=== PATIENT | female | born 1950 | race Caucasian/White ===

== ENCOUNTER 2023-10-07 16:45 | Emergency (ER) | payer MEDICARE, OTHER, SELFPAY ==
[2023-10-07 17:19] VITALS: BP 121/72; PULSE 87; RESP 18; TEMP 36.7; O2SAT 97; BMI 33.8
--- NOTE | 2023-10-07 17:23 | ED.GENADULT ---
HPI - General Adult General Stated complaint: dx dementia, recent agitation Related Data Allergies Allergy/AdvReac Type Severity Reaction Status Date / Time Sulfa (Sulfonamide Allergy Unknown Verified 10/07/23 17:27 Antibiotics) Course Course Course Narrative: RME, this is a rapid medical exam performed by Cheo Fritz please refer to primary provider for complete H&P- 73-year-old female presents for evaluation of increased agitation and general malaise. Family is concerned the patient may have a UTI. The patient's and son are requesting a [facility] psych consult as the patient has been ?agitated all the time for a while now but it has been worse over the last 4 days. The patient fell yesterday because the primary doctor increased her Xanax. Plan for basic labs, urinalysis
--- NOTE | 2023-10-07 17:33 | ECG_ITS ---
Test Reason : QT CHECK Blood Pressure : / mmHG Vent. Rate : 083 BPM Atrial Rate : 083 BPM P-R Int : 196 ms QRS Dur : 092 ms QT Int : 384 ms P-R-T Axes : 071 -15 010 degrees QTc Int : 451 ms Normal sinus rhythm Septal infarct , age undetermined Abnormal ECG No previous ECGs available Referred By: All Fritz Electronically Signed By:LITTLE SALAMANCA
[2023-10-07 17:42] LABS: MANUAL DIFF FLAG NO
[2023-10-07 17:49] LABS: Basophils Percent Auto 0.5 % (0-2); Eosinophils Absolute Auto 0.2 X10*3/uL (0.0-0.4); Eosinophils Percent Auto 2.9 % (0-4); Hematocrit 40.6 % (37.0-47.0); Hemoglobin 13.8 g/dl (12.0-16.0); Imm Gran Abs Auto 0.02 X10*3/uL (0.00-0.03); Imm Gran Pct Auto 0.3 % (0.0-0.4); Lymphocytes Absolute Auto 1.2 X10*3/uL (1.2-4.9); Lymphocytes Percent Auto 20.3 % (20-40); Mean Corpuscular Hemoglobin 31.7 pg (27.0-33.0); Mean Corpuscular Volume 93.3 fL (80.0-98.0); Monocytes Absolute Auto 0.6 X10*3/uL (0.1-1.2); Monocytes Percent Auto 9.3 % (2-11); Neutrophils Absolute Auto 3.9 x10*3/uL (2.0-8.3); Neutrophils Percent Auto 66.7 % (45-73); Platelet Count 258 X10*3/uL (160-400); Red Blood Count 4.35 X10*6/uL (4.20-5.50); Red Cell Distribution Width 13.2 % (11.0-16.0); White Blood Count 5.9 X10*3/uL (4.8-10.8)
[2023-10-07 17:57] LABS: Amphetamine Screen Urine Not Detected (Not Detect); Barbiturates, Urine Not Detected (Not Detect); Benzodiazepines Screen Urine POSITIVE (Not Detect); Buprenorphine Scr Not Detected (Not Detect); Cannabinoid Screen Urine POSITIVE (Not Detect); Cocaine Screen Urine Not Detected (Not Detect); Fentanyl, urine Not Detected (Not Detect); Methadone Screen, Urine Not Detected (Not Detect); Opiate Screen Urine Not Detected (Not Detect); Oxycodone Screen Urine Not Detected (Not Detect); Phencyclidine Screen Urine Not Detected (Not Detect)
[2023-10-07 18:01] LABS: Alanine Aminotransferase 17 U/L (0-31); Albumin Level 4.4 g/dL (3.5-5.0); Alkaline Phosphatase 129 U/L (39-117); Anion Gap 13 (12-20); Aspartate Amino Transferase 23 U/L (5-31); Bilirubin Total 0.4 mg/dL (0.0-1.0); Blood Urea Nitrogen 24 mg/dL (9-16); Carbon Dioxide 27 mmol/L (22-29); Chloride 102 mmol/L (96-108); Creatinine Clr Calc Pharmacy 58.4; Estimated Glomerular Filt Rate > 60; Glucose Random 133 mg/dL (60-115); Lipase 11 U/L (8-78); Potassium 3.7 mmol/L (3.3-5.1); Sodium 138 mmol/L (135-145); Total Protein 7.7 g/dL (6.5-8.0)
[2023-10-07 18:03] LABS: COVID-19 Test Negative (Negative); IDNOW Serial# 08D9AD1C
[2023-10-07 18:08] LABS: Ethanol < 10 mg/dL
[2023-10-07 18:21] LABS: TSH reflex Free T4 1.49 uIU/mL (0.32-4.0)
--- NOTE | 2023-10-07 18:22 | MHC.EDTECH ---
late entry: pt changed over w/ security and changed into [facility] gown and hospital pants, belongings removed and placed in locker #2, daughter signed belongings list for pt. pt was triaged where blood work, urine, EKG and VS were taken prior to change management director. pt is now resting in her room, with daughter present
[2023-10-07 18:27] LABS: Appearance Urine Clear; Color Urine Yellow; Glucose Urine UA Negative (Negative); Leukocyte Esterase Urine Trace (Negative); Nitrite Urine Negative (Negative); UMIC TRIGGER UACC YES; Urine Blood Negative (Negative); Urine Ketones Negative (Negative); Urine Protein Negative (Neg-Trace)
[2023-10-07 18:34] LABS: Bacteria Urine None Seen (None Seen); Hyaline Casts Urine 0-2 /LPF (0-2); RBC Urine 0-2 /HPF (0-2); Squamous Epithelial Cell Urine 0-2 /HPF (0-2); WBC Urine 0-5 /HPF (0-5)
--- NOTE | 2023-10-07 19:14 | ED.PSYCH ---
HPI - Psych General Chief Complaint: General Medical Stated Complaint: dx dementia, recent agitation Time Seen by Provider: 10/07/23 17:54 Source: family Limitations: other (dementia) History of Present Illness ED Provider: Lilliana Drummond PA-C HPI Narrative: 73-year-old female with history of dementia presents with aggression. Per patient's daughter, the patient has become increasingly aggressive, exhibiting violent behaviors at home, over the past several weeks. They have followed up with their provider who manages her dementia, they have prescribed a new antipsychotic medication for her to try. The daughter indicates that they have yet to start this medication as they wanted to be sure there were no underlying medical causes for her behavioral issues. Related Data Home Medications ?Medication ?Instructions ?Recorded ?Confirmed alprazolam 0.5 mg tablet 0.5 mg PO BID PRN anxiety 10/07/23 10/07/23 lisinopril 10 1 tab PO DAILY 10/07/23 10/07/23 mg-hydrochlorothiazide 12.5 mg tablet metformin 500 mg tablet,extended 500 mg PO BID 10/07/23 10/07/23 release 24 hr mirtazapine 30 mg tablet 30 mg PO DAILY 10/07/23 10/07/23 simvastatin 40 mg tablet 40 mg PO QPM 10/07/23 10/07/23 venlafaxine 75 mg capsule,extended 75 mg PO BID 10/07/23 10/07/23 release 24 hr Allergies Allergy/AdvReac Type Severity Reaction Status Date / Time Sulfa (Sulfonamide Allergy Unknown Verified 10/07/23 17:27 Antibiotics) Review of Systems Review of Systems: Unable to obtain due to dementia Yes all other systems are reviewed and are negative [facility] Past Medical History Attestation statement: The following information was validated with the patient. Social History Social History Advance Directives: No Advance Directives Information Provided: No Do you have a plan to hurt others: No Plan Physical Exam Vital Signs: Vital Signs: Last Vital Signs Temp 98.1 F 10/07/23 17:19 Pulse 87 10/07/23 17:19 Resp 18 10/07/23 17:19 BP 121/72 10/07/23 17:19 Pulse Ox 97 10/07/23 17:19 O2 Del Method Room Air 10/07/23 17:19 BMI result Body Mass Index 33.8 Const: Other: Awake Orientation/consciousness: oriented to person Resp: Other: Nonlabored respiration Cardio: Other: Normal peripheral perfusion Skin: Other: Warm dry no rash Neuro: General: oriented to person, no focal motor deficits and CN's II-XI intact bilaterally Psych: Other: Cooperative here in the emergency department, we will randomly start to cry Medical Decision Making Medical Decision Making MDM Narrative: 73-year-old female with history of dementia presents with aggression. Per patient's daughter, the patient has become increasingly aggressive, exhibiting violent behaviors at home, over the past several weeks. They have followed up with their provider who manages her dementia, they have prescribed a new antipsychotic medication for her to try. The daughter indicates that they have yet to start this medication as they wanted to be sure there were no underlying medical causes for her behavioral issues. Problem: Dementia History: Per patient's daughter I have considered the following differential diagnoses: Worsening dementia, UTI, infection, Plan: Screening labs including urinalysis obtained, there are no abnormalities. The daughter is aware that her U tox screened positive for cannabinoids, they give her CBD oil which seems to help at times. The daughter is happy to take her home given her labs were clean, they will start the new medication today. I have independently reviewed the following tests: Labs: No leukocytosis, not anemic, no electrolyte abnormality, no urinary tract infection, U tox positive for benzos which she is prescribed, and for cannabinoids, serum ethanol negative Differential Diagnosis Differential Diagnoses: The differential diagnosis associated with the presentation includes Lab Data 10/07/23 17:36 10/07/23 17:36 Labs: Lab Results 10/07/23 Range/Units 17:36 WBC 5.9 (4.8-10.8) X10*3/uL RBC 4.35 (4.20-5.50) X10*6/uL Hgb 13.8 (12.0-16.0) g/dl Hct 40.6 (37.0-47.0) % MCV 93.3 (80.0-98.0) fL MCH 31.7 (27.0-33.0) pg MCHC 34.0 (31.0-35.0) g/dl RDW 13.2 (11.0-16.0) % Plt Count 258 (160-400) X10*3/uL MPV 10.0 (9.4-12.3) fL Immature Gran % (Auto) 0.3 (0.0-0.4) % Neut % (Auto) 66.7 (45-73) % Lymph % (Auto) 20.3 (20-40) % [place] % (Auto) 9.3 (2-11) % Eos % (Auto) 2.9 (0-4) % Baso % (Auto) 0.5 (0-2) % Lymph # (Auto) 1.2 (1.2-4.9) X10*3/uL [place] # (Auto) 0.6 (0.1-1.2) X10*3/uL Eos # (Auto) 0.2 (0.0-0.4) X10*3/uL Baso # (Auto) 0.0 (0.0-0.2) X10*3/uL Abs Immat Gran (auto) 0.02 (0.00-0.03) X10*3/uL Absolute Neuts (auto) 3.9 (2.0-8.3) x10*3/uL Absolute Nucleated RBC 0.000 (0.0-0.012) X10*3/uL Nucleated RBC % (auto) 0.0 (0.0-0.2) /100WBC Sodium 138 (135-145) mmol/L Potassium 3.7 (3.3-5.1) mmol/L Chloride 102 (96-108) mmol/L Carbon Dioxide 27 (22-29) mmol/L Anion Gap 13 (12-20) BUN 24 H (9-16) mg/dL Creatinine 0.90 (0.5-1.4) mg/dL Estim Creat Clear Calc 58.4 Estimated GFR > 60 Random Glucose 133 H (60-115) mg/dL Calcium 10.0 (8.4-10.2) mg/dL Total Bilirubin 0.4 (0.0-1.0) mg/dL AST 23 (5-31) U/L ALT 17 (0-31) U/L Alkaline Phosphatase 129 H (39-117) U/L Total Protein 7.7 (6.5-8.0) g/dL Albumin 4.4 (3.5-5.0) g/dL Lipase 11 (8-78) U/L TSH 1.49 (0.32-4.0) uIU/mL Urine Color Yellow Urine Appearance Clear Urine pH 6.0 (5.0-9.0) Ur Specific [place] 1.020 (1.005-1.025) Urine Protein Negative (Neg-Trace) mg/dL Urine Glucose (UA) Negative (Negative) mg/dL Urine Ketones Negative (Negative) mg/dL Urine Blood Negative (Negative) Urine Nitrite Negative (Negative) Ur Leukocyte Esterase Trace H (Negative) Urine RBC 0-2 (0-2) /HPF Urine WBC 0-5 (0-5) /HPF Ur Squamous Epith Cells 0-2 (0-2) /HPF Urine Bacteria None Seen (None Seen) Hyaline Casts 0-2 (0-2) /LPF Urine Opiates Screen Not Detected (Not Detect) Ur Buprenorphine Scrn Not Detected (Not Detect) ng/mL Ur Oxycodone Screen Not Detected (Not Detect) ng/mL Urine Methadone Screen Not Detected (Not Detect) ng/mL Urine Fentanyl Screen Not Detected (Not Detect) Ur Barbiturates Screen Not Detected (Not Detect) Ur Phencyclidine Scrn Not Detected (Not Detect) Ur Amphetamines Screen Not Detected (Not Detect) U Benzodiazepines Scrn POSITIVE H (Not Detect) Urine Cocaine Screen Not Detected (Not Detect) U Marijuana (THC) Screen POSITIVE H (Not Detect) Ethyl Alcohol < 10 mg/dL COVID-19 ([facility]ERENA) Negative (Negative) COVID-19 Clin Com See Note Discharge Plan Discharge Clinical Impression: Dementia Qualifiers: Dementia type: unspecified type Dementia severity: unspecified severity Dementia behavioral or psychological symptom: with agitation Qualified Code(s): F03.911 - Unspecified dementia, unspecified severity, with agitation Patient Disposition: Home, Self-Care Instructions: Dementia (ED) Additional Instructions: All of the screening labs were normal, the urinalysis was negative for urinary tract infection. Continue to follow up with your care providers. Prescriptions: No Action venlafaxine 75 mg capsule,extended release 24hr 75 mg PO BID simvastatin 40 mg tablet 40 mg PO QPM alprazolam 0.5 mg tablet 0.5 mg PO BID PRN (Reason: anxiety) mirtazapine 30 mg tablet 30 mg PO DAILY lisinopril-hydrochlorothiazide 10-12.5 mg tablet 1 tab PO DAILY metformin 500 mg tablet extended release 24 hr 500 mg PO BID Print Language: Citizen Of [place]
[2023-10-07 19:46] VITALS: BP 117/45; PULSE 78; RESP 17; TEMP 36.6; O2SAT 99
== END 2023-10-07 20:00 | disposition home or self-care (01) ==
PROVIDERS: Physician Assistant; Emergency Provider Emergency Medicine; PCP Family Medicine
DX: F03.911 Unspecified dementia, unspecified severity, with agitation (principal); R53.81 Other malaise; R45.1 Restlessness and agitation; Z79.899 Other long term (current) drug therapy; Z11.52 Encounter for screening for COVID-19
CPT/HCPCS: 36415; 80053; 80307; 81001; 83690; 84443; 85025; 87635; 93005; 99283

== ENCOUNTER 2023-11-21 13:47 | Inpatient (IN) | payer MEDICARE, OTHER, SELFPAY ==
[2023-11-21 13:57] VITALS: BP 110/70; BP 119/59; PULSE 100; PULSE 93; RESP 16; TEMP 36.7; O2SAT 100; O2SAT 97; BMI 24.3
--- NOTE | 2023-11-21 14:03 | ED_ITS ---
HPI - General Adult General Chief complaint: Failure to Thrive Stated complaint: Sec 12 Time Seen by Provider: 11/21/23 14:03 Source: patient, family (patient's daughter, son, and ) and EMS Mode of arrival: EMS Limitations: physical limitation (patient has a history of dementia) History of Present Illness ED Provider: Chanelle Pina PA-C HPI narrative: Patient is a 73 year old assigned female at with a history of DM and dementia presenting to the emergency department today with increased agitation. Patient's family states that the patient has continued to become increasingly agitated despite medications given. Patient's family states that the patient is going days without eating or drinking, having sobbing fits, and increased outbursts. Patient's family states that they would like the patient to be admitted for additional psychiatric care. Related Data Home Medications ?Medication ?Instructions ?Recorded ?Confirmed alprazolam 0.5 mg tablet 0.5 mg PO BID PRN anxiety 10/07/23 11/21/23 lisinopril 10 1 tab PO DAILY 10/07/23 11/21/23 mg-hydrochlorothiazide 12.5 mg tablet metformin 500 mg tablet,extended 500 mg PO BID 10/07/23 11/21/23 release 24 hr mirtazapine 30 mg tablet 30 mg PO DAILY 10/07/23 11/21/23 simvastatin 40 mg tablet 40 mg PO QPM 10/07/23 11/21/23 venlafaxine 75 mg capsule,extended 75 mg PO BID 10/07/23 11/21/23 release 24 hr clonazepam 0.5 mg tablet 0.5 mg PO BID PRN agitation 11/21/23 11/21/23 nystatin 100,000 unit/gram topical topical BID 11/21/23 powder (Nystop) quetiapine 25 mg tablet 12.5 mg PO BID PRN insomnia 11/21/23 11/21/23 quetiapine 50 mg tablet,extended 50 mg PO BID 11/21/23 11/21/23 release 24 hr Allergies Allergy/AdvReac Type Severity Reaction Status Date / Time Sulfa (Sulfonamide Allergy Unknown Verified 11/21/23 13:58 Antibiotics) Review of Systems 2 Review of Systems: Yes Other (patient has dementia and is unable to provide ROS) PMFSH Past Medical History Attestation statement: The following information was validated with the patient. (all information validated with the patient's daughter, son, and ) Source: old records reviewed, obtained from family (patient's daughter, son, and provided all history and ROS) and nursing notes reviewed Social History Social History Smoked in Last 30 Days: No Use of substances other than those prescribed or required for medical reasons: No Advance Directives: No Advance Directives Information Provided: No Do you have a plan to hurt others: No Plan Physical Exam ED Vital Signs: Vital Signs - 24 hr 11/21/23 13:57 11/21/23 14:06 11/21/23 16:18 Temperature 98.1 F 98.1 F 98.7 F Pulse Rate 93 93 89 Respiratory Rate 16 16 16 Blood Pressure 119/59 L 119/59 L 142/61 H Pulse Oximetry 100 100 97 Oxygen Delivery Method Room Air Room Air Room Air 11/21/23 17:42 11/21/23 18:12 Temperature 98.2 F Pulse Rate 92 Respiratory Rate 16 Blood Pressure 130/68 Pulse Oximetry 95 98 Oxygen Delivery Method Room Air Room Air BMI result Body Mass Index 24.3 Const General: cooperative, no acute distress, alert and awake Nutritional Appearance: well nourished Limitations: no limitations HENMT Head: Yes normal to inspection and Yes atraumatic Ears: hearing grossly normal bilaterally and external ears normal General nose exam: Normal external nose present, no nasal discharge noted and no epistaxis Face and sinus: Yes normal facial exam, No abrasion and No laceration Mouth: Normal oral and palatal mucosa present, no drooling and no muffled voice Eyes General: appearance normal, both eyes and all related structures Periorbital: periorbital findings normal Eyelids: Yes eyelids normal Conjunctivae: conjunctivae normal Pupils: Equal, round and reactive pupils present EOM: EOMs intact bilaterally Neck Neck: Yes normal visual inspection, Yes full ROM and Yes no lymphadenopathy Chest Chest palpation & inspection: normal inspection of the chest Resp Effort & Inspection: normal respiratory effort and able to speak in complete sentences GI Inspection: Yes normal to inspection Neuro Other: patient is confused per her baseline General: moves all extremities Cranial nerves: Yes Equal, round and reactive pupils present Extrem General: Yes normal to inspection, Yes full ROM and Yes capillary refill normal Psych Appearance: grossly normal Affect: Labile affect present Attitude: Guarded attititude/behavior present Medications Administered Generic Name Dose Route Start Last Admin Trade Name Freq PRN Reason Stop Dose Admin Alprazolam 0.5 mg 11/21/23 15:55 11/21/23 16:18 Alprazolam 0.5 Mg Tablet PO 0.5 mg BID PRN Administration anxiety Atorvastatin Calcium 20 mg 11/21/23 21:00 11/21/23 20:05 Atorvastatin Calcium 20 Mg Tablet PO 20 mg BEDTIME SARAH Administration Clonazepam 0.5 mg 11/21/23 15:55 11/21/23 20:06 Clonazepam 0.5 Mg Tablet PO 0.5 mg BID PRN Administration agitation Metformin HCl 500 mg 11/21/23 21:00 11/21/23 20:06 Metformin Hcl Er 500 Mg Tab.Er.24h PO 500 mg BID SARAH Administration Quetiapine Fumarate 12.5 mg 11/21/23 15:55 11/21/23 16:18 Quetiapine Fumarate 25 Mg Tablet PO 12.5 mg BID PRN Administration insomnia Quetiapine Fumarate 50 mg 11/21/23 21:00 11/21/23 20:05 Quetiapine Fumarate 50 Mg Tablet PO 50 mg BID SARAH Administration Venlafaxine HCl 75 mg 11/21/23 21:00 11/21/23 20:05 Venlafaxine Hcl Er 75 Mg Cap.Er.24h PO 75 mg BID SARAH Administration Discontinued Medications Generic Name Dose Route Start Last Admin Trade Name Jose Alfredoq PRN Reason Stop Dose Admin Sodium Chloride 1,000 mls @ 999 mls/hr 11/21/23 14:15 11/21/23 15:31 Ns IV 11/21/23 15:15 Infused .Q1H1M SARAH Infusion Olanzapine 5 mg 11/21/23 19:39 11/21/23 19:43 Olanzapine 5 Mg Tablet PO 11/21/23 19:40 5 mg ONCE ONE Administration Medical Decision Making Medical Decision Making MDM Narrative: Patient is a 73 year old assigned female at with a history of DM and dementia presenting to the emergency department today with increased agitation and the need for additional psychiatric care. Patient's physical exam was as noted in the physical exam portion of this note. Patient's blood work was unremarkable. Patient's urine showed no acute process. I explained my physical exam findings as well as all test results to the patient and the patient's family. I answered all questions asked by the patient's family. Patient was evaluated by the CARE team who recommended a psychiatric evaluation. Patient remains in the department pending a psychiatric evaluation. Differential Diagnosis Differential Diagnoses: The differential diagnosis associated with the presentation includes Dementia Increased aggression Admission/Observation Consideration of admission/observation: Escalation of care including admission/observation considered Patient's disposition will be determined after psychiatry consult. Consult Healthcare Provider Management of the patient was discussed with: Behavioral Health Provider (spoke to the CARE team as noted in the MDM Rationale portion of this note) Lab Data [facility] Lab Attestation statement: I reviewed the patient's lab results. My interpretation of these results are in the MDM Rationale portion of this note. 11/21/23 14:24 11/21/23 14:24 Labs: Lab Results 11/21/23 11/21/23 Range/Units 14:24 15:40 WBC 6.4 (4.8-10.8) X10*3/uL RBC 4.14 L (4.20-5.50) X10*6/uL Hgb 13.0 (12.0-16.0) g/dl Hct 37.5 (37.0-47.0) % MCV 90.6 (80.0-98.0) fL MCH 31.4 (27.0-33.0) pg MCHC 34.7 (31.0-35.0) g/dl RDW 13.2 (11.0-16.0) % Plt Count 212 (160-400) X10*3/uL MPV 10.2 (9.4-12.3) fL Immature Gran % (Auto) 0.3 (0.0-0.4) % Neut % (Auto) 75.2 H (45-73) % Lymph % (Auto) 14.8 L (20-40) % [place] % (Auto) 7.5 (2-11) % Eos % (Auto) 1.6 (0-4) % Baso % (Auto) 0.6 (0-2) % Lymph # (Auto) 1.0 L (1.2-4.9) X10*3/uL [place] # (Auto) 0.5 (0.1-1.2) X10*3/uL Eos # (Auto) 0.1 (0.0-0.4) X10*3/uL Baso # (Auto) 0.0 (0.0-0.2) X10*3/uL Abs Immat Gran (auto) 0.02 (0.00-0.03) X10*3/uL Absolute Neuts (auto) 4.8 (2.0-8.3) x10*3/uL Absolute Nucleated RBC 0.000 (0.0-0.012) X10*3/uL Nucleated RBC % (auto) 0.0 (0.0-0.2) /100WBC Sodium 138 (135-145) mmol/L Potassium 3.5 (3.3-5.1) mmol/L Chloride 100 (96-108) mmol/L Carbon Dioxide 26 (22-29) mmol/L Anion Gap 16 (12-20) BUN 31 H (9-16) mg/dL Creatinine 1.16 (0.5-1.4) mg/dL Estim Creat Clear Calc 42.2 Estimated GFR 46 Random Glucose 103 (60-115) mg/dL Calcium 10.0 (8.4-10.2) mg/dL Total Bilirubin 0.6 (0.0-1.0) mg/dL AST 31 (5-31) U/L ALT 30 (0-31) U/L Alkaline Phosphatase 81 (39-117) U/L Total Protein 7.1 (6.5-8.0) g/dL Albumin 4.3 (3.5-5.0) g/dL Urine Color Yellow Urine Appearance Clear Urine pH 5.5 (5.0-9.0) Ur Specific [place] 1.010 (1.005-1.025) Urine Protein Negative (Neg-Trace) mg/dL Urine Glucose (UA) Negative (Negative) mg/dL Urine Ketones Negative (Negative) mg/dL Urine Blood Negative (Negative) Urine Nitrite Negative (Negative) Ur Leukocyte Esterase Moderate (2+) H (Negative) Urine RBC 0-2 (0-2) /HPF Urine WBC 6-10 H (0-5) /HPF Ur Squamous Epith Cells 0-2 (0-2) /HPF Urine Bacteria None Seen (None Seen) Hyaline Casts 3-5 (0-2) /LPF Urine Opiates Screen Not Detected (Not Detect) Ur Buprenorphine Scrn Not Detected (Not Detect) ng/mL Ur Oxycodone Screen Not Detected (Not Detect) ng/mL Urine Methadone Screen Not Detected (Not Detect) ng/mL Urine Fentanyl Screen Not Detected (Not Detect) Ur Barbiturates Screen Not Detected (Not Detect) Ur Phencyclidine Scrn Not Detected (Not Detect) Ur Amphetamines Screen Not Detected (Not Detect) U Benzodiazepines Scrn Not Detected (Not Detect) Urine Cocaine Screen Not Detected (Not Detect) U Marijuana (THC) Screen Not Detected (Not Detect) Independent Historian Clinical information obtained from an independent historian. History obtained from or confirmed by: Spouse (patient's provided additional history), EMS (EMS provided additional history and confirmed the history provided by the patient's family) and Other (patient's daughter and son provided additional history) Chronic Conditions Patient?s care impacted by: Diabetes Critical Care Time Critical Care Time Critical Care Time: Yes Total Critical Care Time: 41 Attestation: I spent 41 minutes of Critical Care Time with this patient. This does not include time spent on separately reported billable procedures. Discharge Plan Discharge Clinical Impression: Dementia, Aggression Patient Disposition: Still a Patient Prescriptions: No Action venlafaxine 75 mg capsule,extended release 24hr 75 mg PO BID simvastatin 40 mg tablet 40 mg PO QPM alprazolam 0.5 mg tablet 0.5 mg PO BID PRN (Reason: anxiety) mirtazapine 30 mg tablet 30 mg PO DAILY lisinopril-hydrochlorothiazide 10-12.5 mg tablet 1 tab PO DAILY metformin 500 mg tablet extended release 24 hr 500 mg PO BID quetiapine 25 mg tablet 12.5 mg PO BID PRN (Reason: insomnia) clonazepam 0.5 mg tablet 0.5 mg PO BID PRN (Reason: agitation) quetiapine 50 mg tablet extended release 24 hr 50 mg PO BID nystatin [Nystop] 100,000 unit/gram powder TOPICAL BID Print Language: [place]
[2023-11-21 14:06] VITALS: BP 119/59; PULSE 93; RESP 16; TEMP 36.7; O2SAT 100
--- NOTE | 2023-11-21 14:22 | MHC.CARE ---
Spoke with [facility] clinician who assessed pt in the community, recommending I[facility]OC due to pt's increased agitation secondary to dementia. Dtr and feel it is unsafe to keep pt in the home due to aggressive behaviors and worsening symptoms of dementia which she was dx with years ago.
[2023-11-21 14:29] LABS: Basophils Percent Auto 0.6 % (0-2); Eosinophils Absolute Auto 0.1 X10*3/uL (0.0-0.4); Eosinophils Percent Auto 1.6 % (0-4); Hematocrit 37.5 % (37.0-47.0); Imm Gran Abs Auto 0.02 X10*3/uL (0.00-0.03); Imm Gran Pct Auto 0.3 % (0.0-0.4); Lymphocytes Percent Auto 14.8 % (20-40); MANUAL DIFF FLAG NO; Mean Corpuscular HGB Conc 34.7 g/dl (31.0-35.0); Mean Corpuscular Hemoglobin 31.4 pg (27.0-33.0); Mean Corpuscular Volume 90.6 fL (80.0-98.0); Mean Platelet Volume 10.2 fL (9.4-12.3); Monocytes Absolute Auto 0.5 X10*3/uL (0.1-1.2); Monocytes Percent Auto 7.5 % (2-11); Neutrophils Absolute Auto 4.8 x10*3/uL (2.0-8.3); Neutrophils Percent Auto 75.2 % (45-73); Platelet Count 212 X10*3/uL (160-400); Red Blood Count 4.14 X10*6/uL (4.20-5.50); Red Cell Distribution Width 13.2 % (11.0-16.0); White Blood Count 6.4 X10*3/uL (4.8-10.8)
[2023-11-21] MEDS: 0.9 % Sodium Chloride 1,000 ML 999 ML IV (14:29)
--- NOTE | 2023-11-21 14:36 | PC.NURSE ---
Pt comes from home via EMS for concerns of UTI and dehydration as Pt has been refusing food/drink over the last month or so. Pt with baseline dementia--oriented to birthday only. Pt is a section 12. VSS, afebrile, cardiac monitoring in place. IVF per APR 20g RAC Blood work completed, results pending. Family at bedside.
[2023-11-21 15:08] LABS: Alanine Aminotransferase 30 U/L (0-31); Albumin Level 4.3 g/dL (3.5-5.0); Alkaline Phosphatase 81 U/L (39-117); Anion Gap 16 (12-20); Aspartate Amino Transferase 31 U/L (5-31); Bilirubin Total 0.6 mg/dL (0.0-1.0); Blood Urea Nitrogen 31 mg/dL (9-16); Carbon Dioxide 26 mmol/L (22-29); Chloride 100 mmol/L (96-108); Creatinine Clr Calc Pharmacy 42.2; Estimated Glomerular Filt Rate 46; Glucose Random 103 mg/dL (60-115); Potassium 3.5 mmol/L (3.3-5.1); Sodium 138 mmol/L (135-145); Total Protein 7.1 g/dL (6.5-8.0)
[2023-11-21 15:55] LABS: Appearance Urine Clear; Color Urine Yellow; Glucose Urine UA Negative (Negative); Leukocyte Esterase Urine Moderate (2+) (Negative); Nitrite Urine Negative (Negative); PH 5.5 (5.0-9.0); UMIC TRIGGER UACC YES; Urine Blood Negative (Negative); Urine Ketones Negative (Negative); Urine Protein Negative (Neg-Trace)
[2023-11-21 16:00] LABS: Bacteria Urine None Seen (None Seen); RBC Urine 0-2 /HPF (0-2); Squamous Epithelial Cell Urine 0-2 /HPF (0-2); UACC Culture Trigger YES
[2023-11-21 16:04] LABS: Amphetamine Screen Urine Not Detected (Not Detect); Barbiturates, Urine Not Detected (Not Detect); Benzodiazepines Screen Urine Not Detected (Not Detect); Buprenorphine Scr Not Detected (Not Detect); Cannabinoid Screen Urine Not Detected (Not Detect); Cocaine Screen Urine Not Detected (Not Detect); Fentanyl, urine Not Detected (Not Detect); Methadone Screen, Urine Not Detected (Not Detect); Opiate Screen Urine Not Detected (Not Detect); Oxycodone Screen Urine Not Detected (Not Detect); Phencyclidine Screen Urine Not Detected (Not Detect)
[2023-11-21 16:18] VITALS: BP 142/61; PULSE 89; RESP 16; TEMP 37.1; O2SAT 97
[2023-11-21] MEDS: QUEtiapine Fumarate 25 MG TABLET 12.5 MG PO (16:18)
[2023-11-21] MEDS: ALPRAZolam 0.5 MG TABLET PO (16:18)
[2023-11-21 17:42] VITALS: O2SAT 95
[2023-11-21 18:12] VITALS: BP 130/68; PULSE 92; RESP 16; TEMP 36.8; O2SAT 98
[2023-11-21] MEDS: OLANZapine 5 MG TABLET PO (19:43)
[2023-11-21] MEDS: Venlafaxine HCl ER 75 MG CAP.ER.24H PO (20:05)
[2023-11-21] MEDS: Atorvastatin Calcium 20 MG TABLET PO (20:05)
[2023-11-21] MEDS: QUEtiapine Fumarate 50 MG TABLET PO (20:05)
[2023-11-21] MEDS: clonazePAM 0.5 MG TABLET PO (20:06)
[2023-11-21] MEDS: metFORMIN HCl ER 500 MG TAB.ER.24H PO (20:06)
--- NOTE | 2023-11-21 20:15 | PC.NURSE ---
Assumed care of pt at 1900, pt ambulating around room, with family. Pt is tearful, not responding to this RN but responding to family. Care team in room speaking with family. Effie from Care team spoke with Chanelle RUIZ and PO xyprexa ordered. Pt took pills crushed in pudding. PO bed time meds also given shortly after. Pt tearful not making sense.
--- NOTE | 2023-11-21 20:29 | MHC.CARE ---
Probate Clerk received request from Main ED RN to speak with patient family regarding POC. Met with patient's two children and discussed need for Psychiatry to weigh in on need for IPLOC admission for medication evaluation and potential need for Case Mgmt to be involved if family is unable to provide level of care patient currently requires. Family reports that they only have 4 hours of formal help in the home and they are not able to provide for patient's current care needs given the progression of her Dementia. Discussed with SARA Forbes and Psychiatry Consult has been placed. [place] message to on-call providers to provide update as needed.
[2023-11-22] MEDS: clonazePAM 0.5 MG TABLET PO (03:55)
[2023-11-22 05:59] VITALS: BP 123/42; PULSE 65; RESP 16; TEMP 36.6; O2SAT 96
--- NOTE | 2023-11-22 07:17 | PC.NURSE ---
Resumed care of patient at 0700, 1:1 sitter remains at this time. Pt is alert and eating breakfast. Pt offers no complaints at this time. Awaiting dispo.
[2023-11-22] MEDS: Mirtazapine 30 MG TABLET PO (09:19)
[2023-11-22] MEDS: Venlafaxine HCl ER 75 MG CAP.ER.24H PO ×2 (09:19→20:01)
[2023-11-22] MEDS: QUEtiapine Fumarate 50 MG TABLET PO ×2 (09:19→20:01)
[2023-11-22] MEDS: metFORMIN HCl ER 500 MG TAB.ER.24H PO ×2 (09:19→20:01)
[2023-11-22 09:21] VITALS: BP 111/60
[2023-11-22] MEDS: lisinopriL 10 MG, hydroCHLOROthiazide 12.5 MG PO (09:21)
--- NOTE | 2023-11-22 09:28 | PC.NURSE ---
pt awake/alert to self only, arguementative with family at bedside wanting to go home, pt is impusive and unsteady on feet, meds crushed in ice cream as she doesnt like applesauce or pudding. pt currently has elopement tracker on/fall precautions in place. VSS, resp rate equal/non labored, pt speaking in full sentences, call gan within reach, will continue to monitor
[2023-11-22 10:15] VITALS: BP 112/50; PULSE 90; RESP 12; O2SAT 97
--- NOTE | 2023-11-22 10:52 | P.CNPS_ITS ---
History of Present Illness Date of Service: 11/22/23 Chief Complaint: Sec 12 Reason for Consult: 73 yo MWF lying in bed rolling up blanket and calling for - otherwise not engageable other than when I called her Chanell - corrected me Alana - [employer] told me they have been caring for her at home. She has been declining over years and has been managed by neuro CLINICAL SECRETARY that pcp sent them to - [employer] reports he has been doing care giving with help from family members but they have their own lives ..no outside family help in house. Normally he is able to take her for a walk outside- Several falls = one due to things left on side walk/by others, once fell out of bed, and once when she made it to bedroom door and opened it before was able to get there Worsened in last 2-3 weeks - with aggression, needing more help with Bathroom, crying, hitting his arm and throwing things Requesting physician: Nita Tomas Discussed with referring provider: Yes Sources of Information: patient interviewed and chart reviewed HPI Narrative: see above Past Psychiatric History: no psychiatric hx been managed by neuro and pcp Medical Evaluation Reviewed: Yes Personal & Social History: Decline on dementia over years now with behavioral aspects that have resulted in more difficulty managing her at home with family - PMFSH Social History: lots of family support- but has been giving 1:1 care for some time Substance History: unknown not current Diagnostics Vital Signs (24Hr): Vital Signs - 24 hr 11/21/23 13:57 11/21/23 14:06 11/21/23 16:18 Temperature 98.1 F 98.1 F 98.7 F Pulse Rate 93 93 89 Respiratory Rate 16 16 16 Blood Pressure 119/59 L 119/59 L 142/61 H Pulse Oximetry 100 100 97 Oxygen Delivery Method Room Air Room Air Room Air 11/21/23 17:42 11/21/23 18:12 11/22/23 05:59 Temperature 98.2 F 97.8 F Pulse Rate 92 65 Respiratory Rate 16 16 Blood Pressure 130/68 123/42 L Pulse Oximetry 95 98 96 Oxygen Delivery Method Room Air Room Air Room Air 11/22/23 09:21 11/22/23 10:15 Temperature Pulse Rate 90 Respiratory Rate 12 Blood Pressure 111/60 112/50 L Pulse Oximetry 97 Oxygen Delivery Method Room Air BMI result Body Mass Index 24.3 Labs 11/21/23 14:24 11/21/23 14:24 Labs: Laboratory Results - last 48 hr 11/21/23 11/21/23 14:24 15:40 WBC 6.4 RBC 4.14 L Hgb 13.0 Hct 37.5 MCV 90.6 MCH 31.4 MCHC 34.7 RDW 13.2 Plt Count 212 MPV 10.2 Immature Gran % (Auto) 0.3 Neut % (Auto) 75.2 H Lymph % (Auto) 14.8 L [place] % (Auto) 7.5 Eos % (Auto) 1.6 Baso % (Auto) 0.6 Lymph # (Auto) 1.0 L [place] # (Auto) 0.5 Eos # (Auto) 0.1 Baso # (Auto) 0.0 Abs Immat Gran (auto) 0.02 Absolute Neuts (auto) 4.8 Absolute Nucleated RBC 0.000 Nucleated RBC % (auto) 0.0 Sodium 138 Potassium 3.5 Chloride 100 Carbon Dioxide 26 Anion Gap 16 BUN 31 H Creatinine 1.16 Estim Creat Clear Calc 42.2 Estimated GFR 46 Random Glucose 103 Calcium 10.0 Total Bilirubin 0.6 AST 31 ALT 30 Alkaline Phosphatase 81 Total Protein 7.1 Albumin 4.3 Urine Color Yellow Urine Appearance Clear Urine pH 5.5 Ur Specific [place] 1.010 Urine Protein Negative Urine Glucose (UA) Negative Urine Ketones Negative Urine Blood Negative Urine Nitrite Negative Ur Leukocyte Esterase Moderate (2+) H Urine RBC 0-2 Urine WBC 6-10 H Ur Squamous Epith Cells 0-2 Urine Bacteria None Seen Hyaline Casts 3-5 Urine Opiates Screen Not Detected Ur Buprenorphine Scrn Not Detected Ur Oxycodone Screen Not Detected Urine Methadone Screen Not Detected Urine Fentanyl Screen Not Detected Ur Barbiturates Screen Not Detected Ur Phencyclidine Scrn Not Detected Ur Amphetamines Screen Not Detected U Benzodiazepines Scrn Not Detected Urine Cocaine Screen Not Detected U Marijuana (THC) Screen Not Detected Mental Status Exam Mental Status Exam Narrative: Rolling in gurney, rolling up blanket- limited engagement for exam Patient Orientation: Person (knew to correct me that she goes by Alana not Chanell) Level of Consciousness: Awake and Restless Patient Behavior: Restless, Confused and Poor Eye Contact Mood Description: Labile and Sad Affect Description: Labile Patient Cognition Impaired: Yes Ability to Follow Directions: Poor Speech Pattern: Impoverished Thought Process: Disoriented and Confusion Thought Content: positive for Disorganized Abnormal Motor Activity Signs and Symptoms: Restlessness Judgement: Poor Medications Medications Current Medications Alprazolam (Alprazolam 0.5 Mg Tablet) 0.5 mg PO BID PRN PRN Reason: anxiety Last Admin: 11/21/23 16:18 Dose: 0.5 mg Atorvastatin Calcium (Atorvastatin Calcium 20 Mg Tablet) 20 mg PO BEDTIME [facility] Last Admin: 11/21/23 20:05 Dose: 20 mg Clonazepam (Clonazepam 0.5 Mg Tablet) 0.5 mg PO BID PRN PRN Reason: agitation Last Admin: 11/21/23 20:06 Dose: 0.5 mg Lisinopril 10 mg/ (Hydrochlorothiazide 12.5 mg) 0 mg PO DAILY [facility] Last Admin: 11/22/23 09:21 Dose: 10 tablet Metformin HCl (Metformin Hcl Er 500 Mg Tab.Er.24h) 500 mg PO BID [facility] Last Admin: 11/22/23 09:19 Dose: 500 mg Mirtazapine (Mirtazapine 30 Mg Tablet) 30 mg PO DAILY [facility] Last Admin: 11/22/23 09:19 Dose: 30 mg Quetiapine Fumarate (Quetiapine Fumarate 25 Mg Tablet) 12.5 mg PO BID PRN PRN Reason: insomnia Last Admin: 11/21/23 16:18 Dose: 12.5 mg Quetiapine Fumarate (Quetiapine Fumarate 50 Mg Tablet) 50 mg PO BID [facility] Last Admin: 11/22/23 09:19 Dose: 50 mg Venlafaxine HCl (Venlafaxine Hcl Er 75 Mg Cap.Er.24h) 75 mg PO BID [facility] Last Admin: 11/22/23 09:19 Dose: 75 mg Allergies Allergies Allergy/AdvReac Type Severity Reaction Status Date / Time Sulfa (Sulfonamide Allergy Unknown Verified 11/21/23 13:58 Antibiotics) Assessment & Plan Assessment & Plan (1) Severe dementia without behavioral disturbance, psychotic disturbance, mood disturbance, or anxiety: Status: Acute Code(s): F03.C0 - Unspecified dementia, severe, without behavioral disturbance, psychotic disturbance, mood disturbance, and anxiety Plan recommend geripsych admission for management medication adjustments and then disposition planning- HCP will need to be invoked Patient clearly not competent Total time managing care of this patient today ____ minutes. Guardian/Caregiver educated on: diagnosis, medication risk/benefits and other Informed Consent: further education needed
--- NOTE | 2023-11-22 10:54 | PC.NURSE ---
patient has been agitated wanting to ambulate which sitter stated she was very sleeping as well as being agitated. pt wanting to walk but due to the patients sleepiness we have opted to put the patient in the wheelchair so her can walk with her. pts states this is her baseline at home that she gets very agitated then sleepy- he generally walks with her at home until she is ready to lay down to nap. he states she doesnt sleep well and only naps in small increments. sitter is walking with as well. also asked for provider to medicate the patient for increased agitation, Dr. Quezada wanted the patient to ambulate or take a ride in the wheelchair to see if this is calming for her over medicating the patient at this time. will continue with plan of care.
--- NOTE | 2023-11-22 12:18 | PC.NURSE ---
pt spouse at bedside, walking with pt in WC- pt was assisted back into bed. Currently resting with eyes closed, respirations even and unlabored 1:[address] for safety
--- NOTE | 2023-11-22 14:11 | PC.NURSE ---
this nurse assisted pt to bathroom with RELEASE OF INFORMATION CLERK- pt voided moderate amount of straw colored urine
[2023-11-22] MEDS: ALPRAZolam 0.5 MG TABLET PO (17:40)
--- NOTE | 2023-11-22 17:44 | PC.NURSE ---
pt tearful in exam room with son at bedside- began exhibiting extit seeking behaviors- medicated with PRN 0.5 xanax
[2023-11-22] MEDS: Atorvastatin Calcium 20 MG TABLET PO (20:01)
[2023-11-22 22:08] VITALS: BP 128/62; PULSE 84; RESP 16; TEMP 36.3; O2SAT 100
--- NOTE | 2023-11-22 22:38 | PC.NURSE ---
pt medicated per MAR- pt currently resting in hospital bed with eyes closed, respirations even and unlabored
[2023-11-23] MEDS: QUEtiapine Fumarate 25 MG TABLET 12.5 MG PO (00:38)
--- NOTE | 2023-11-23 00:43 | PC.NURSE ---
patient attempting to get out of bed, easily redirected back into bed. patient stating that she feels restless, medicated per the MAR for insomnia. continues to rest quietly in room w/ even and unlabored respirations. bed alarm on and patient observer in place for safety.
[2023-11-23 04:41] VITALS: BP 136/62; PULSE 70; RESP 16; TEMP 36.7; O2SAT 96
[2023-11-23] MEDS: metFORMIN HCl ER 500 MG TAB.ER.24H PO ×2 (10:05→20:41)
[2023-11-23] MEDS: QUEtiapine Fumarate 50 MG TABLET PO ×2 (10:05→20:40)
[2023-11-23] MEDS: Venlafaxine HCl ER 75 MG CAP.ER.24H PO (10:05)
[2023-11-23] MEDS: lisinopriL 10 MG, hydroCHLOROthiazide 12.5 MG PO (10:05)
--- NOTE | 2023-11-23 10:22 | PC.NURSE ---
Pharmacy contacted to redo medication reconciliation. Pt's daughter refused Remeron due to the fact that she usually takes it at night.
--- NOTE | 2023-11-23 11:00 | PHA.MEDREC ---
Addendum entered by Teresita James RPh 11/23/23 13:47: PROVIDER NOTIFIED OF CHANGES FROM MED REC DONE BY NURSING. PATIENT RECEIVED ADDITIONAL DOSES OF ALPRAZOLAM AND INCORRECT DOSING OF SEROQUEL FROM 11/20 THROUGH 11/22. INCIDENT REPORT FILED. Addendum entered by Teresita James RPh 11/23/23 12:03: med rec reviewed by [facility] Original Note: Pharmacy Consult ? Medication Reconciliation Pharmacy reviewed med rec completed by nursing. Daughter at patient bedside and she gave us a list from [facility] and mostly everything matched but Quetiapine and Alprazolam. Patient daughter states her mom stopped the Alprazolam 0.5mg a few weeks and is taking the Clonazepam 0.5mg as needed for Anxiety. Patient daughter also said her mom just got increased to Quetiapine 50mg ER BID but states the pills are to big for her mom to swallow them and she is not able to crush them so shes been giving her mom the 25mg tabs QID. Patient daughter also states the hospital is gonna put the Mirtazapine 30mg tab on hold due to her mom being to drowsy on it but states she isn't sure if her brother started giving it to their mom at night because of the drowsiness, but states she is going to verify with him about it and let us or the patient know when he gets back to her.
--- NOTE | 2023-11-23 12:07 | HO.PSYADMNOT ---
[facility] Date of Service: 11/23/23 Chief Complaint: Agitation Sources of Information: patient interviewed, chart reviewed and crisis/core team assessment reviewed HPI Subjective Notes: Section 12B Narrative: The patient is a 73-year-old female, , mother of adult children, living with her with a history of advanced dementia. The patient was brought to the emergency room by her reporting that she had been more agitated with disorganized behavior in the last week. Apparently, as per 's report, her baseline is poor, she had been diagnosed on several medical comorbidities, including dementia advanced. While she was in the emergency room, she was assessed by the crisis team. It seems that in the last days there had been more aggression and disorganized behavior. While she was in the emergency room a urinalysis was order and came up with 6 WBCs but negative cultures so she was not started on antibiotics. We tried to interview the patient but the patient was severely confused wandering on one-to-one for safety. We interview her who reported the patient had a remote history of depression with ECT when she was 16 but she never had followed any psychiatric treatment and her mental status have declined in the last years slowly but progressively. They came to the emergency room asking for help since the patient was unable to be taken care by her elderly . The patient is a very poor historian and we will try to gather more collateral information, this moment the patient is unable to sign a CV or any other document, she snored staff and she is wandering confused. Vital signs are stable at this point Past Psychiatric History: no psychiatric hx been managed by neuro and pcp. As per her 's report she had a remote history of depression with ECT when she was 16. She required inpatient level of care at the time. Medical Evaluation Reviewed: Yes [facility] Family History: Unknown Social History: lots of family support- but has been giving 1:1 care for some time Substance History: Her denies past history of substance abuse Trauma History: Unknown Diagnostics Vital Signs (24Hr): Vital Signs - 24 hr 11/22/23 22:08 11/23/23 04:41 Temperature 97.3 F 98.1 F Pulse Rate 84 70 Respiratory Rate 16 16 Blood Pressure 128/62 136/62 Pulse Oximetry 100 96 Oxygen Delivery Method Room Air Room Air BMI result Body Mass Index 24.3 Labs 11/21/23 14:24 11/21/23 14:24 Labs: Laboratory Results - last 48 hr 11/21/23 11/21/23 14:24 15:40 WBC 6.4 RBC 4.14 L Hgb 13.0 Hct 37.5 MCV 90.6 MCH 31.4 MCHC 34.7 RDW 13.2 Plt Count 212 MPV 10.2 Immature Gran % (Auto) 0.3 Neut % (Auto) 75.2 H Lymph % (Auto) 14.8 L [place] % (Auto) 7.5 Eos % (Auto) 1.6 Baso % (Auto) 0.6 Lymph # (Auto) 1.0 L [place] # (Auto) 0.5 Eos # (Auto) 0.1 Baso # (Auto) 0.0 Abs Immat Gran (auto) 0.02 Absolute Neuts (auto) 4.8 Absolute Nucleated RBC 0.000 Nucleated RBC % (auto) 0.0 Sodium 138 Potassium 3.5 Chloride 100 Carbon Dioxide 26 Anion Gap 16 BUN 31 H Creatinine 1.16 Estim Creat Clear Calc 42.2 Estimated GFR 46 Random Glucose 103 Calcium 10.0 Total Bilirubin 0.6 AST 31 ALT 30 Alkaline Phosphatase 81 Total Protein 7.1 Albumin 4.3 Urine Color Yellow Urine Appearance Clear Urine pH 5.5 Ur Specific [place] 1.010 Urine Protein Negative Urine Glucose (UA) Negative Urine Ketones Negative Urine Blood Negative Urine Nitrite Negative Ur Leukocyte Esterase Moderate (2+) H Urine RBC 0-2 Urine WBC 6-10 H Ur Squamous Epith Cells 0-2 Urine Bacteria None Seen Hyaline Casts 3-5 Urine Opiates Screen Not Detected Ur Buprenorphine Scrn Not Detected Ur Oxycodone Screen Not Detected Urine Methadone Screen Not Detected Urine Fentanyl Screen Not Detected Ur Barbiturates Screen Not Detected Ur Phencyclidine Scrn Not Detected Ur Amphetamines Screen Not Detected U Benzodiazepines Scrn Not Detected Urine Cocaine Screen Not Detected U Marijuana (THC) Screen Not Detected Meds/Allergies Meds Home Medications ?Medication ?Instructions ?Recorded ?Confirmed ?Type lisinopril 10 1 tab PO DAILY 10/07/23 11/23/23 History mg-hydrochlorothiazide 12.5 mg tablet metformin 500 mg tablet,extended 500 mg PO BIDWM@0800 10/07/23 11/23/23 History release 24 hr mirtazapine 30 mg tablet 30 mg PO DAILY 10/07/23 11/23/23 History simvastatin 40 mg tablet 40 mg PO BEDTIME 10/07/23 11/23/23 History venlafaxine 75 mg capsule,extended 75 mg PO BID 10/07/23 11/23/23 History release 24 hr clonazepam 0.5 mg tablet 0.5 mg PO BID PRN agitation 11/21/23 11/23/23 History nystatin 100,000 unit/gram topical 1 appl topical BID 11/21/23 11/23/23 History powder (Nystop) quetiapine 25 mg tablet 25 mg PO QID PRN insomnia 11/21/23 11/23/23 History Allergies Allergies Allergy/AdvReac Type Severity Reaction Status Date / Time Sulfa (Sulfonamide Allergy Unknown Verified 11/21/23 13:58 Antibiotics) Mental Status Exam Mental Status Exam Patient Appearance: Appropriate (On hospital gowns) Patient Orientation: Person Level of Consciousness: Disoriented and Restless Patient Behavior: Guarded and Resistive to Care Mood Description: Withdrawn Affect Description: Blunted Patient Cognition Impaired: Yes Ability to Follow Directions: Poor Speech Pattern: No Speech Hallucinations: None Delusions: Not Present Thought Process: Slowed Thinking and Confusion Thought Content: positive for Poverty of Content and positive for Thought Blocking Judgement: Poor Assessment & Plan Assessment & Plan (1) Severe dementia without behavioral disturbance, psychotic disturbance, mood disturbance, or anxiety: Status: Acute Code(s): F03.C0 - Unspecified dementia, severe, without behavioral disturbance, psychotic disturbance, mood disturbance, and anxiety (2) Delirium: Status: Acute Code(s): R41.0 - Disorientation, unspecified Plan The patient is an elderly female with a past history of dementia that has worsen it in the last years and her behavior became unmanageable in the last week with agitation and disorganized behavior. She was brought to the emergency room and she came positive to a UA but negative culture. Plan 1. Gather more collateral information. 2. Start safety 250 mg p.o. q.12 for UTI. 3. Continue with regular medications. 4. Blood work for tomorrow and referral to the hospitalist. 5. Reassessment with results. 6. On one-to-one observation for safety due to severe disorganization Patient educated on: medical condition Informed Consent: does not understand Reason for continued inpatient stay Substantial Risk for: harm to self, inability to function, rapid decompensation and med/psych decompensation Statement Statement: I have reviewed the history and physical and performed a pertinent examination on my patient. No changes have occurred unless specified. If the History and Physical was not performed prior to admission, the Hospitalist's service will be consulted for completing the admission physical. Time Spent With Patient Time: Total time managing care of this patient today __45__ minutes.
--- NOTE | 2023-11-23 12:23 | PC.NURSE ---
RN to RN phone report given to Lyric, all questions answered, RN to come parts picker patient when ready for her.
[2023-11-23 13:05] VITALS: BMI 28.2
[2023-11-23 14:48] VITALS: BP 105/53; PULSE 96; RESP 17; TEMP 36.1; O2SAT 99
[2023-11-23] MEDS: cefuroxime axetiL 250 MG TABLET PO (17:15)
--- NOTE | 2023-11-23 17:23 | PC.ADMIT ---
Chanell Warner is a 77 year old female who was admitted to the unit at 12:45 from the ED on a 12b with Unspecified Dementia. The patient had come from home where she was living with her , but was reported to have recently become more agitated and aggressive towards family. Patient was also reported to have not been eating, drinking or sleeping well. She presented as anxious and tearful during the admission assessment, oriented to self only and majority of speech content is nonsensical (thus unable to participate or answer questions). Patient ambulates independently with a standby assist for unsteadiness but is fully dependent for ADL's. Patient takes medications crushed in yogurt/pudding and has been started on Ceftin Q12 for treatment of a UTI. Vitals obtained upon initial admission and skin check was completed with another nurse ( skin is warm, dry and intact). Patient has been placed on a 1:1 for safety.
[2023-11-23 20:00] VITALS: RESP 18
[2023-11-23] MEDS: Atorvastatin Calcium 20 MG TABLET PO (20:40)
[2023-11-23] MEDS: Mirtazapine 30 MG TABLET PO (20:40)
[2023-11-23] MEDS: traZODone HCL 50 MG TABLET PO (20:46)
[2023-11-24] MEDS: cefuroxime axetiL 250 MG TABLET PO ×2 (04:26→15:55)
[2023-11-24 08:00] VITALS: BP 119/65; PULSE 75; RESP 16; TEMP 36.1; O2SAT 96
[2023-11-24] MEDS: lisinopriL 10 MG, hydroCHLOROthiazide 12.5 MG PO (10:50)
[2023-11-24] MEDS: QUEtiapine Fumarate 50 MG TABLET PO ×3 (10:51→20:21)
[2023-11-24] MEDS: Venlafaxine HCl ER 75 MG CAP.ER.24H PO (10:52)
[2023-11-24] MEDS: metFORMIN HCl ER 500 MG TAB.ER.24H PO ×2 (10:52→20:21)
--- NOTE | 2023-11-24 11:01 | P.PNPSI_ITS ---
Subjective Subjective Date of Service: 11/24/23 Reason For Visit: Agitation Subjective Notes: Section 12B Healthcare Proxy: Yes Interim History: The nursing staff reported the patient had been walking on one-to-one nonsensical. She is carrying a doll and she looks internally preoccupied pleasant and crying at times. The dialysis social worker reported that yesterday he spoke with her and daughter and she had a [place] healthcare proxy. According to our press feeder it is valid so we are invoking it. On interview the patient looks disengaged, very confused unable to follow on interview. Mental Status Exam Mental Status Exam Patient Appearance: Appropriate Patient Orientation: Person Level of Consciousness: Awake Patient Behavior: Guarded and Passive Mood Description: Withdrawn Affect Description: Blunted Patient Cognition Impaired: Yes Ability to Follow Directions: Good Speech Pattern: No Speech Hallucinations: None Delusions: Ideas of Reference Thought Process: Distracted Thought Content: positive for Poverty of Content and positive for Thought Blocking Judgement: Poor Diagnostics Vital Signs (24Hr): Vital Signs - 24 hr 11/23/23 14:48 11/23/23 20:00 Temperature 96.9 F Pulse Rate 96 Respiratory Rate 17 18 Blood Pressure 105/53 L Pulse Oximetry 99 Oxygen Delivery Method Room Air BMI result Body Mass Index 28.2 Labs 11/21/23 14:24 11/21/23 14:24 Medications Medications Current Medications Acetaminophen (Acetaminophen 325 Mg Tablet) 650 mg PO Q6H PRN PRN Reason: Headache/Pain Mild Scale (1-3) Al Hydroxide/Mg Hydroxide (Magnesium Hydrox/Alum Hydrox 30 Ml Oral.Susp) 30 ml PO Q6H PRN PRN Reason: Heartburn/Nausea Atorvastatin Calcium (Atorvastatin Calcium 20 Mg Tablet) 20 mg PO BEDTIME [facility] Last Admin: 11/23/23 20:40 Dose: 20 mg Cefuroxime Axetil (Cefuroxime Axetil 250 Mg Tablet) 250 mg PO Q12H [facility] Last Admin: 11/24/23 04:26 Dose: 250 mg Clonazepam (Clonazepam 0.5 Mg Tablet) 0.5 mg PO BID PRN PRN Reason: agitation Last Admin: 11/21/23 20:06 Dose: 0.5 mg Lisinopril 10 mg/ (Hydrochlorothiazide 12.5 mg) 0 mg PO DAILY [facility] Last Admin: 11/23/23 10:05 Dose: 10 tablet Magnesium Hydroxide (Milk Of Magnesia 30 Ml Oral.Susp) 30 ml PO DAILY PRN PRN Reason: Constipation Metformin HCl (Metformin Hcl Er 500 Mg Tab.Er.24h) 500 mg PO BID [facility] Last Admin: 11/23/23 20:41 Dose: 500 mg Mirtazapine (Mirtazapine 30 Mg Tablet) 30 mg PO BEDTIME [facility] Last Admin: 11/23/23 20:40 Dose: 30 mg Quetiapine Fumarate (Quetiapine Fumarate 25 Mg Tablet) 25 mg PO BID PRN PRN Reason: insomnia Quetiapine Fumarate (Quetiapine Fumarate 50 Mg Tablet) 50 mg PO TID [facility] Last Admin: 11/23/23 20:40 Dose: 50 mg Trazodone HCl (Trazodone Hcl 50 Mg Tablet) 50 mg PO BEDTIME MRX1 PRN PRN Reason: Insomnia Last Admin: 11/23/23 20:46 Dose: 50 mg Venlafaxine HCl (Venlafaxine Hcl Er 75 Mg Cap.Er.24h) 75 mg PO DAILY [facility] Allergies Allergies Allergy/AdvReac Type Severity Reaction Status Date / Time Sulfa (Sulfonamide Allergy Unknown Verified 11/21/23 13:58 Antibiotics) Assessment & Plan Assessment & Plan (1) Severe dementia without behavioral disturbance, psychotic disturbance, mood disturbance, or anxiety: Status: Acute Code(s): F03.C0 - Unspecified dementia, severe, without behavioral disturbance, psychotic disturbance, mood disturbance, and anxiety (2) Delirium: Status: Acute Code(s): R41.0 - Disorientation, unspecified Plan The patient is an elderly female with a past history of dementia that has worsen it in the last years and her behavior became unmanageable in the last week with agitation and disorganized behavior. She was brought to the emergency room and she came positive to a UA but negative culture. Plan 1. Gather more collateral information. 2. Start Ceftin 250 mg p.o. q.12 for UTI on November 22 3. Continue with regular medications. 4. Blood work for tomorrow and referral to the hospitalist. 5. Reassessment with results. 6. On one-to-one observation for safety due to severe disorganization 7. We increase the Seroquel up to 50 mg p.o. b.i.d. for agitation. Reason for continued inpatient stay Substantial Risk for: inability to function, rapid decompensation and med/psych decompensation Time Spent With Patient Time: Total time managing care of this patient today __20__ minutes.
[2023-11-24 20:00] VITALS: BP 104/66; PULSE 80; RESP 18; TEMP 36.3; O2SAT 98
[2023-11-24] MEDS: Mirtazapine 30 MG TABLET PO (20:21)
[2023-11-24] MEDS: traZODone HCL 50 MG TABLET PO (20:21)
[2023-11-24] MEDS: Atorvastatin Calcium 20 MG TABLET PO (20:21)
[2023-11-25] MEDS: cefuroxime axetiL 250 MG TABLET PO ×2 (06:11→17:41)
[2023-11-25 08:00] VITALS: BP 116/57; PULSE 73; RESP 18; TEMP 36.8; O2SAT 97
[2023-11-25] MEDS: QUEtiapine Fumarate 50 MG TABLET PO ×3 (10:15→20:04)
[2023-11-25] MEDS: lisinopriL 10 MG, hydroCHLOROthiazide 12.5 MG PO (10:16)
[2023-11-25] MEDS: Venlafaxine HCl ER 75 MG CAP.ER.24H PO (10:17)
[2023-11-25] MEDS: metFORMIN HCl ER 500 MG TAB.ER.24H PO ×2 (10:17→20:04)
[2023-11-25] MEDS: clonazePAM 0.5 MG TABLET PO ×2 (14:12→20:05)
--- NOTE | 2023-11-25 14:59 | HO.PSYCHPN ---
Subjective Subjective Date of Service: 11/25/23 Reason For Visit: Agitation Subjective Notes: Conditional Voluntary Healthcare Proxy: Yes Interim History: The nursing staff reported the patient had been confused with blank stare crying at times disorganized. She slept 8 hours. The public health social worker reported the family meeting pretty soon. On interview the patient was less confused but still erratic, we are ordering a UA today. Mental Status Exam Mental Status Exam Patient Appearance: Well Grooomed and Appropriate Patient Orientation: Person Level of Consciousness: Awake Patient Behavior: Guarded and Passive Mood Description: Withdrawn Affect Description: Constricted Patient Cognition Impaired: Yes Ability to Follow Directions: Good Speech Pattern: Clear Hallucinations: None Delusions: Not Present Thought Process: Distracted and Slowed Thinking Thought Content: positive for [place] and positive for Poverty of Content Judgement: Poor Diagnostics Vital Signs (24Hr): Vital Signs - 24 hr 11/24/23 20:00 11/25/23 08:00 Temperature 97.3 F 98.2 F Pulse Rate 80 73 Respiratory Rate 18 18 Blood Pressure 104/66 116/57 L Pulse Oximetry 98 97 Oxygen Delivery Method Room Air Room Air BMI result Body Mass Index 28.2 Labs 11/21/23 14:24 11/21/23 14:24 Medications Medications Current Medications Acetaminophen (Acetaminophen 325 Mg Tablet) 650 mg PO Q6H PRN PRN Reason: Headache/Pain Mild Scale (1-3) Al Hydroxide/Mg Hydroxide (Magnesium Hydrox/Alum Hydrox 30 Ml Oral.Susp) 30 ml PO Q6H PRN PRN Reason: Heartburn/Nausea Atorvastatin Calcium (Atorvastatin Calcium 20 Mg Tablet) 20 mg PO BEDTIME [facility] Last Admin: 11/24/23 20:21 Dose: 20 mg Cefuroxime Axetil (Cefuroxime Axetil 250 Mg Tablet) 250 mg PO Q12H [facility]AH Last Admin: 11/25/23 06:11 Dose: 250 mg Clonazepam (Clonazepam 0.5 Mg Tablet) 0.5 mg PO BID PRN PRN Reason: agitation Last Admin: 11/25/23 14:12 Dose: 0.5 mg Lisinopril 10 mg/ (Hydrochlorothiazide 12.5 mg) 0 mg PO DAILY [facility] Last Admin: 11/25/23 10:16 Dose: 2 tablet Magnesium Hydroxide (Milk Of Magnesia 30 Ml Oral.Susp) 30 ml PO DAILY PRN PRN Reason: Constipation Metformin HCl (Metformin Hcl Er 500 Mg Tab.Er.24h) 500 mg PO BID [facility] Last Admin: 11/25/23 10:17 Dose: 500 mg Mirtazapine (Mirtazapine 30 Mg Tablet) 30 mg PO BEDTIME [facility] Last Admin: 11/24/23 20:21 Dose: 30 mg Quetiapine Fumarate (Quetiapine Fumarate 25 Mg Tablet) 25 mg PO BID PRN PRN Reason: insomnia Quetiapine Fumarate (Quetiapine Fumarate 50 Mg Tablet) 50 mg PO TID [facility] Last Admin: 11/25/23 14:11 Dose: 50 mg Trazodone HCl (Trazodone Hcl 50 Mg Tablet) 50 mg PO BEDTIME MRX1 PRN PRN Reason: Insomnia Last Admin: 11/24/23 20:21 Dose: 50 mg Venlafaxine HCl (Venlafaxine Hcl Er 75 Mg Cap.Er.24h) 75 mg PO DAILY [facility] Last Admin: 11/25/23 10:17 Dose: 75 mg Allergies Allergies Allergy/AdvReac Type Severity Reaction Status Date / Time Sulfa (Sulfonamide Allergy Unknown Verified 11/21/23 13:58 Antibiotics) Assessment & Plan Assessment & Plan (1) Severe dementia without behavioral disturbance, psychotic disturbance, mood disturbance, or anxiety: Status: Acute Code(s): F03.C0 - Unspecified dementia, severe, without behavioral disturbance, psychotic disturbance, mood disturbance, and anxiety (2) Delirium: Status: Acute Code(s): R41.0 - Disorientation, unspecified Plan The patient is an elderly female with a past history of dementia that has worsen it in the last years and her behavior became unmanageable in the last week with agitation and disorganized behavior. She was brought to the emergency room and she came positive to a UA but negative culture. Plan 1. Gather more collateral information. 2. Start Ceftin 250 mg p.o. q.12 for UTI on November 22 3. Continue with regular medications. 4. Blood work for tomorrow and referral to the hospitalist. 5. Reassessment with results. 6. On one-to-one observation for safety due to severe disorganization 7. We increase the Seroquel up to 50 mg p.o. b.i.d. for agitation. Reason for continued inpatient stay Substantial Risk for: inability to function, rapid decompensation and med/psych decompensation Time Spent With Patient Time: Total time managing care of this patient today __20__ minutes.
[2023-11-25] MEDS: Nystatin Powder 15 GM BOTTLE 1 APPL TOPICAL (15:33)
[2023-11-25 20:00] VITALS: BP 100/60; PULSE 100; RESP 18; TEMP 36; O2SAT 96
[2023-11-25] MEDS: traZODone HCL 50 MG TABLET PO (20:04)
[2023-11-25] MEDS: Atorvastatin Calcium 20 MG TABLET PO (20:04)
[2023-11-25] MEDS: Mirtazapine 30 MG TABLET PO (20:04)
[2023-11-26] MEDS: cefuroxime axetiL 250 MG TABLET PO ×2 (06:21→18:51)
[2023-11-26 07:00] VITALS: BMI 26.6
[2023-11-26 09:18] VITALS: BP 120/81; PULSE 107; RESP 20; O2SAT 96
[2023-11-26] MEDS: Venlafaxine HCl ER 75 MG CAP.ER.24H PO (09:21)
[2023-11-26] MEDS: lisinopriL 10 MG, hydroCHLOROthiazide 12.5 MG PO (09:22)
[2023-11-26] MEDS: QUEtiapine Fumarate 50 MG TABLET PO ×3 (09:28→19:51)
[2023-11-26] MEDS: metFORMIN HCl ER 500 MG TAB.ER.24H PO ×2 (09:28→19:50)
[2023-11-26] MEDS: clonazePAM 0.5 MG TABLET PO ×2 (11:59→15:48)
--- NOTE | 2023-11-26 12:05 | P.PNPSI_ITS ---
Subjective Subjective Date of Service: 11/26/23 Reason For Visit: Agitation Subjective Notes: Conditional Voluntary Healthcare Proxy: Yes Interim History: The nursing staff reported the patient had been with a labile affect she slept 7 hours. She had being slightly disorganized, pacing in the hallways on one-to-one. On interview the patient denies new symptoms. She looks less confused and disorganized since we started antibiotics. Mental Status Exam Mental Status Exam Patient Appearance: Appropriate Patient Orientation: Person Level of Consciousness: Awake Patient Behavior: Guarded and Passive Mood Description: Withdrawn Affect Description: Constricted Patient Cognition Impaired: Yes Ability to Follow Directions: Good Speech Pattern: Clear Hallucinations: None Delusions: Not Present Thought Process: Distracted and Slowed Thinking Thought Content: positive for [place] and positive for Poverty of Content Judgement: Poor Diagnostics Vital Signs (24Hr): Vital Signs - 24 hr 11/25/23 20:00 11/26/23 09:18 Temperature 96.8 F Pulse Rate 100 107 H Respiratory Rate 18 20 Blood Pressure 100/60 120/81 Pulse Oximetry 96 96 Oxygen Delivery Method Room Air Room Air BMI result Body Mass Index 28.2 Labs 11/21/23 14:24 11/21/23 14:24 Medications Medications Current Medications Acetaminophen (Acetaminophen 325 Mg Tablet) 650 mg PO Q6H PRN PRN Reason: Headache/Pain Mild Scale (1-3) Al Hydroxide/Mg Hydroxide (Magnesium Hydrox/Alum Hydrox 30 Ml Oral.Susp) 30 ml PO Q6H PRN PRN Reason: Heartburn/Nausea Atorvastatin Calcium (Atorvastatin Calcium 20 Mg Tablet) 20 mg PO BEDTIME [facility] Last Admin: 11/25/23 20:04 Dose: 20 mg Cefuroxime Axetil (Cefuroxime Axetil 250 Mg Tablet) 250 mg PO Q12H [facility] Last Admin: 11/26/23 06:21 Dose: 250 mg Clonazepam (Clonazepam 0.5 Mg Tablet) 0.5 mg PO BID PRN PRN Reason: agitation Last Admin: 11/25/23 20:05 Dose: 0.5 mg Lisinopril 10 mg/ (Hydrochlorothiazide 12.5 mg) 0 mg PO DAILY [facility] Last Admin: 11/26/23 09:22 Dose: 1 tablet Magnesium Hydroxide (Milk Of Magnesia 30 Ml Oral.Susp) 30 ml PO DAILY PRN PRN Reason: Constipation Metformin HCl (Metformin Hcl Er 500 Mg Tab.Er.24h) 500 mg PO BID [facility] Last Admin: 11/26/23 09:28 Dose: 500 mg Mirtazapine (Mirtazapine 30 Mg Tablet) 30 mg PO BEDTIME [facility] Last Admin: 11/25/23 20:04 Dose: 30 mg Quetiapine Fumarate (Quetiapine Fumarate 25 Mg Tablet) 25 mg PO BID PRN PRN Reason: insomnia Quetiapine Fumarate (Quetiapine Fumarate 50 Mg Tablet) 50 mg PO TID [facility] Last Admin: 11/26/23 09:28 Dose: 50 mg Trazodone HCl (Trazodone Hcl 50 Mg Tablet) 50 mg PO BEDTIME MRX1 PRN PRN Reason: Insomnia Last Admin: 11/25/23 20:04 Dose: 50 mg Venlafaxine HCl (Venlafaxine Hcl Er 75 Mg Cap.Er.24h) 75 mg PO DAILY [facility] Last Admin: 11/26/23 09:21 Dose: 75 mg Allergies Allergies Allergy/AdvReac Type Severity Reaction Status Date / Time Sulfa (Sulfonamide Allergy Unknown Verified 11/21/23 13:58 Antibiotics) Assessment & Plan Assessment & Plan (1) Severe dementia without behavioral disturbance, psychotic disturbance, mood disturbance, or anxiety: Status: Acute Code(s): F03.C0 - Unspecified dementia, severe, without behavioral disturbance, psychotic disturbance, mood disturbance, and anxiety (2) Delirium: Status: Acute Code(s): R41.0 - Disorientation, unspecified Plan The patient is an elderly female with a past history of dementia that has worsen it in the last years and her behavior became unmanageable in the last week with agitation and disorganized behavior. She was brought to the emergency room and she came positive to a UA but negative culture. Plan 1. Gather more collateral information. 2. Start Ceftin 250 mg p.o. q.12 for UTI on November 22 3. Continue with regular medications. 4. Blood work for tomorrow and referral to the hospitalist. 5. Reassessment with results. 6. On one-to-one observation for safety due to severe disorganization 7. We increase the Seroquel up to 50 mg p.o. b.i.d. for agitation. Reason for continued inpatient stay Substantial Risk for: inability to function, rapid decompensation and med/psych decompensation Time Spent With Patient Time: Total time managing care of this patient today _20___ minutes.
[2023-11-26] MEDS: Atorvastatin Calcium 20 MG TABLET PO (19:50)
[2023-11-26] MEDS: Mirtazapine 30 MG TABLET PO (19:51)
[2023-11-26 19:55] VITALS: BP 116/57; PULSE 91; RESP 18; TEMP 36.1; O2SAT 96
[2023-11-27] MEDS: cefuroxime axetiL 250 MG TABLET PO ×2 (05:14→15:39)
[2023-11-27 08:33] LABS: Alanine Aminotransferase 28 U/L (0-31); Albumin Level 4.4 g/dL (3.5-5.0); Alkaline Phosphatase 88 U/L (39-117); Anion Gap 12 (12-20); Aspartate Amino Transferase 29 U/L (5-31); Bilirubin Total 0.7 mg/dL (0.0-1.0); Blood Urea Nitrogen 34 mg/dL (9-16); Carbon Dioxide 29 mmol/L (22-29); Chloride 102 mmol/L (96-108); Cholesterol 143 mg/dL (<200); Creatinine Clr Calc Pharmacy 47.5; Estimated Glomerular Filt Rate 47; Glucose Fasting 105 mg/dL (60-99); HDL Cholesterol 53 mg/dL (>40); LDL Cholesterol Calculated 72 mg/dL (<100); Potassium 4.3 mmol/L (3.3-5.1); Sodium 139 mmol/L (135-145); Total Protein 7.3 g/dL (6.5-8.0); Triglycerides 93 mg/dL (<150)
[2023-11-27 08:57] VITALS: BP 132/61; PULSE 83; RESP 16; TEMP 36.5; O2SAT 99
[2023-11-27] MEDS: lisinopriL 10 MG, hydroCHLOROthiazide 12.5 MG PO (09:09)
[2023-11-27] MEDS: QUEtiapine Fumarate 25 MG TABLET PO (09:10)
[2023-11-27] MEDS: Venlafaxine HCl ER 75 MG CAP.ER.24H PO (09:10)
[2023-11-27] MEDS: metFORMIN HCl 500 MG TABLET PO ×2 (09:10→15:39)
[2023-11-27] MEDS: clonazePAM 0.5 MG TABLET PO ×2 (09:10→20:41)
[2023-11-27] MEDS: QUEtiapine Fumarate 50 MG TABLET PO ×3 (09:11→20:41)
[2023-11-27] MEDS: OLANZapine ODT 10 MG TAB.RAPDIS TRANSLINGU (12:24)
--- NOTE | 2023-11-27 12:50 | PC.NURSE ---
Spoke with Patient's , explained the patient is retaining urine and needs to undergo a straight catheterization to empty her bladder. Vish (HCP) stated he was in agreement for the procedure.
--- NOTE | 2023-11-27 13:26 | HO.PSYCHPN ---
Subjective Subjective Date of Service: 11/27/23 Reason For Visit: Agitation Subjective Notes: Conditional Voluntary Healthcare Proxy: Yes Interim History: The nursing staff reported the patient had been confused, partially compliant sporadically agitated. Today in the morning she had a bladder scan and she has newly a 1000 cc and she refused to have treatment. We called her and she gave us permission to physically restrain and catheterized her. A physical hold was needed for the medical procedure that it was an emergency. Mental Status Exam Mental Status Exam Patient Appearance: Appropriate Patient Orientation: Person and Situation Level of Consciousness: Awake and Appropriate Patient Behavior: Guarded and Belligerent Mood Description: Withdrawn Affect Description: Blunted Patient Cognition Impaired: Yes Ability to Follow Directions: Poor Speech Pattern: Mumbled Hallucinations: None Delusions: Ideas of Reference Thought Process: Distracted and Slowed Thinking Thought Content: positive for Poverty of Content, positive for Thought Blocking and positive for Disorganized Judgement: Poor Diagnostics Vital Signs (24Hr): Vital Signs - 24 hr 11/26/23 19:55 11/27/23 08:57 Temperature 96.9 F 97.7 F Pulse Rate 91 83 Respiratory Rate 18 16 Blood Pressure 116/57 L 132/61 Pulse Oximetry 96 99 Oxygen Delivery Method Room Air Room Air BMI result Body Mass Index 26.6 Labs 11/21/23 14:24 11/27/23 08:05 Labs: Laboratory Results - last 48 hr 11/27/23 08:05 Hold Purple Top SEE NOTE Sodium 139 Potassium 4.3 D Chloride 102 Carbon Dioxide 29 Anion Gap 12 BUN 34 H Creatinine 1.13 Estim Creat Clear Calc 47.5 Estimated GFR 47 Fasting Glucose 105 H Calcium 10.0 Total Bilirubin 0.7 AST 29 ALT 28 Alkaline Phosphatase 88 Total Protein 7.3 Albumin 4.4 Triglycerides 93 Cholesterol 143 LDL Cholesterol, Calc 72 HDL Cholesterol 53 Medications Medications Current Medications Acetaminophen (Acetaminophen 325 Mg Tablet) 650 mg PO Q6H PRN PRN Reason: Headache/Pain Mild Scale (1-3) Al Hydroxide/Mg Hydroxide (Magnesium Hydrox/Alum Hydrox 30 Ml Oral.Susp) 30 ml PO Q6H PRN PRN Reason: Heartburn/Nausea Atorvastatin Calcium (Atorvastatin Calcium 20 Mg Tablet) 20 mg PO BEDTIME [facility] Last Admin: 11/26/23 19:50 Dose: 20 mg Cefuroxime Axetil (Cefuroxime Axetil 250 Mg Tablet) 250 mg PO Q12H [facility] Last Admin: 11/27/23 05:14 Dose: 250 mg Clonazepam (Clonazepam 0.5 Mg Tablet) 0.5 mg PO BID PRN PRN Reason: agitation Last Admin: 11/27/23 09:10 Dose: 0.5 mg Lisinopril 10 mg/ (Hydrochlorothiazide 12.5 mg) 0 mg PO DAILY [facility] Last Admin: 11/27/23 09:09 Dose: 1 tablet Magnesium Hydroxide (Milk Of Magnesia 30 Ml Oral.Susp) 30 ml PO DAILY PRN PRN Reason: Constipation Metformin HCl (Metformin Hcl 500 Mg Tablet) 500 mg PO BIDWM [facility] Last Admin: 11/27/23 09:10 Dose: 500 mg Mirtazapine (Mirtazapine 30 Mg Tablet) 30 mg PO BEDTIME [facility] Last Admin: 11/26/23 19:51 Dose: 30 mg Quetiapine Fumarate (Quetiapine Fumarate 25 Mg Tablet) 25 mg PO BID PRN PRN Reason: insomnia Last Admin: 11/27/23 09:10 Dose: 25 mg Quetiapine Fumarate (Quetiapine Fumarate 50 Mg Tablet) 50 mg PO TID [facility] Last Admin: 11/27/23 09:11 Dose: 50 mg Trazodone HCl (Trazodone Hcl 50 Mg Tablet) 50 mg PO BEDTIME MRX1 PRN PRN Reason: Insomnia Last Admin: 11/25/23 20:04 Dose: 50 mg Venlafaxine HCl (Venlafaxine Hcl Er 75 Mg Cap.Er.24h) 75 mg PO DAILY [facility] Last Admin: 11/27/23 09:10 Dose: 75 mg Allergies Allergies Allergy/AdvReac Type Severity Reaction Status Date / Time Sulfa (Sulfonamide Allergy Unknown Verified 11/21/23 13:58 Antibiotics) Assessment & Plan Assessment & Plan (1) Severe dementia without behavioral disturbance, psychotic disturbance, mood disturbance, or anxiety: Status: Acute Code(s): F03.C0 - Unspecified dementia, severe, without behavioral disturbance, psychotic disturbance, mood disturbance, and anxiety (2) Delirium: Status: Acute Code(s): R41.0 - Disorientation, unspecified Plan The patient is an elderly female with a past history of dementia that has worsen it in the last years and her behavior became unmanageable in the last week with agitation and disorganized behavior. She was brought to the emergency room and she came positive to a UA but negative culture. Plan 1. Gather more collateral information. 2. Start Ceftin 250 mg p.o. q.12 for UTI on November 22 3. Continue with regular medications. 4. Blood work for tomorrow and referral to the hospitalist. 5. Reassessment with results. 6. On one-to-one observation for safety due to severe disorganization 7. We increase the Seroquel up to 50 mg p.o. b.i.d. for agitation. 8. November 26 we needed to medicate her since she was very agitated. Later on, we needed to physically hold and catheterize her since she had urinary retention that was severe. Her who is the healthcare proxy was fully aware of the procedure and gave us consent. Reason for continued inpatient stay Substantial Risk for: inability to function, rapid decompensation and med/psych decompensation Time Spent With Patient Time: Total time managing care of this patient today __20__ minutes.
--- NOTE | 2023-11-27 15:15 | PC.NURSE ---
Pt. oriented to name only. Unable to participate in assmt's. Mood and affect are intermittently worried, angry, and tearful. Paces unit with 1:1. Given PRNs for agitation with short lived effect. Given one time zydis with short effect. Noted to be dry in AM, unable to void on toilet, and was still dry and unable to void after lunch. Bladder scanned for >999 ml's. Received order for brief physical hold for straight cath, with agreement from HCP, but was then able to void on toilet, and PVR was 187. Pt. then more relaxed and rested in bed. Eating only bites even with assistance and taking meds crushed.
[2023-11-27] MEDS: Mirtazapine 30 MG TABLET PO (20:41)
[2023-11-27] MEDS: traZODone HCL 50 MG TABLET PO (20:41)
[2023-11-27] MEDS: Atorvastatin Calcium 20 MG TABLET PO (20:41)
--- NOTE | 2023-11-27 22:07 | P.DS_ITS ---
DS: Providers Provider Date of Service: 11/27/23 Date of admission: 11/23/23 10:48 Primary care physician: Unknown Physician DS: Diagnosis Discharge Diagnosis (1) Severe dementia without behavioral disturbance, psychotic disturbance, mood disturbance, or anxiety: Status: Acute (2) Delirium: Status: Acute DS: Medications Discharge Medications Home Medications: Previous Rx's ?Medication ?Instructions ?Recorded acetaminophen 325 mg tablet 650 mg (2 x 325 mg) PO Q6H PRN 11/27/23 Headache/Pain Mild Scale (1-3) #0 tabs atorvastatin 20 mg tablet 20 mg PO BEDTIME #0 tabs 11/27/23 cefuroxime axetil 250 mg tablet 250 mg PO Q12H #0 tabs 11/27/23 clonazepam 0.5 mg tablet 0.5 mg PO BID PRN agitation #0 tabs 11/27/23 hydrochlorothiazide 12.5 mg tablet 12.5 mg PO DAILY #0 tabs 11/27/23 lisinopril 10 mg tablet 10 mg PO DAILY #0 tabs 11/27/23 metformin 500 mg tablet 500 mg PO BIDWM #0 tabs 11/27/23 mirtazapine 30 mg tablet 30 mg PO BEDTIME #0 tabs 11/27/23 quetiapine 25 mg tablet 25 mg PO BID PRN insomnia #0 tabs 11/27/23 quetiapine 50 mg tablet 50 mg PO TID #0 tabs 11/27/23 trazodone 50 mg tablet 50 mg PO BEDTIME MRX1 PRN Insomnia 11/27/23 #0 tabs venlafaxine 75 mg capsule,extended 75 mg PO DAILY #0 caps 11/27/23 release 24 hr Mental Status Exam Mental Status Exam Patient Appearance: Appropriate Patient Orientation: Person and Situation Level of Consciousness: Awake and Appropriate Patient Behavior: Guarded and Belligerent Mood Description: Withdrawn Affect Description: Blunted Patient Cognition Impaired: Yes Ability to Follow Directions: Poor Speech Pattern: Mumbled Hallucinations: None Delusions: Ideas of Reference Thought Process: Distracted and Slowed Thinking Thought Content: positive for Poverty of Content, positive for Thought Blocking and positive for Disorganized Judgement: Poor Data Data Completed and Pending Completed studies during hospitalization [Text1]: 11/21/23 11/21/23 11/27/23 14:24 15:40 08:05 WBC 6.4 RBC 4.14 L Hgb 13.0 Hct 37.5 MCV 90.6 MCH 31.4 MCHC 34.7 RDW 13.2 Plt Count 212 MPV 10.2 Immature Gran % (Auto) 0.3 Neut % (Auto) 75.2 H Lymph % (Auto) 14.8 L [place] % (Auto) 7.5 Eos % (Auto) 1.6 Baso % (Auto) 0.6 Lymph # (Auto) 1.0 L [place] # (Auto) 0.5 Eos # (Auto) 0.1 Baso # (Auto) 0.0 Abs Immat Gran (auto) 0.02 Absolute Neuts (auto) 4.8 Absolute Nucleated RBC 0.000 Nucleated RBC % (auto) 0.0 Hold Purple Top SEE NOTE Sodium 138 139 Potassium 3.5 4.3 D Chloride 100 102 Carbon Dioxide 26 29 Anion Gap 16 12 BUN 31 H 34 H Creatinine 1.16 1.13 Estim Creat Clear Calc 42.2 47.5 Estimated GFR 46 47 Random Glucose 103 Fasting Glucose 105 H Calcium 10.0 10.0 Total Bilirubin 0.6 0.7 AST 31 29 ALT 30 28 Alkaline Phosphatase 81 88 Total Protein 7.1 7.3 Albumin 4.3 4.4 Triglycerides 93 Cholesterol 143 LDL Cholesterol, Calc 72 HDL Cholesterol 53 Urine Color Yellow Urine Appearance Clear Urine pH 5.5 Ur Specific Lillie 1.010 Urine Protein Negative Urine Glucose (UA) Negative Urine Ketones Negative Urine Blood Negative Urine Nitrite Negative Ur Leukocyte Esterase Moderate (2+) H Urine RBC 0-2 Urine WBC 6-10 H Ur Squamous Epith Cells 0-2 Urine Bacteria None Seen Hyaline Casts 3-5 Urine Opiates Screen Not Detected Ur Buprenorphine Scrn Not Detected Ur Oxycodone Screen Not Detected Urine Methadone Screen Not Detected Urine Fentanyl Screen Not Detected Ur Barbiturates Screen Not Detected Ur Phencyclidine Scrn Not Detected Ur Amphetamines Screen Not Detected U Benzodiazepines Scrn Not Detected Urine Cocaine Screen Not Detected U Marijuana (THC) Screen Not Detected 11/21/23 Unknown Urine clean catch - Clean Catch Midstream Urine Culture - Final DS: Summary Hospital Course Hospital Course: per 11/22 admission note: HPI Subjective Notes: Section 12B Narrative: The patient is a 73-year-old female, , mother of adult children, living with her with a history of advanced dementia. The patient was brought to the emergency room by her reporting that she had been more agitated with disorganized behavior in the last week. Apparently, as per 's report, her baseline is poor, she had been diagnosed on several medical comorbidities, including dementia advanced. While she was in the emergency room, she was assessed by the crisis team. It seems that in the last days there had been more aggression and disorganized behavior. While she was in the emergency room a urinalysis was order and came up with 6 WBCs but negative cultures so she was not started on antibiotics. We tried to interview the patient but the patient was severely confused wandering on one-to-one for safety. We interview her who reported the patient had a remote history of depression with ECT when she was 16 but she never had followed any psychiatric treatment and her mental status have declined in the last years slowly but progressively. They came to the emergency room asking for help since the patient was unable to be taken care by her elderly . The patient is a very poor historian and we will try to gather more collateral information, this moment the patient is unable to sign a CV or any other document, she snored staff and she is wandering confused. Vital signs are stable at this point Past Psychiatric History: no psychiatric hx been managed by neuro and pcp. As per her 's report she had a remote history of depression with ECT when she was 16. She required inpatient level of care at the time. Medical Evaluation Reviewed: Yes PMFSH Family History: Unknown Social History: lots of family support- but has been giving 1:1 care for some time Substance History: Her denies past history of substance abuse Trauma History: Unknown Precis: The patient is an elderly female with a past history of dementia that has worsen it in the last years and her behavior became unmanageable in the last week with agitation and disorganized behavior. She was brought to the emergency room and she came positive to a UA but negative culture. Plan 1. Gather more collateral information. 2. Start Ceftin 250 mg p.o. q.12 for UTI on November 22 3. Continue with regular medications. 4. Blood work for tomorrow and referral to the hospitalist. 5. Reassessment with results. 6. On one-to-one observation for safety due to severe disorganization 7. We increase the Seroquel up to 50 mg p.o. b.i.d. for agitation. 8. November 26 we needed to medicate her since she was very agitated. Later on, we needed to physically hold and catheterize her since she had urinary retention that was severe. Her who is the healthcare proxy was fully aware of the procedure and gave us consent. 11/26 - systolic BP to the 60s, hospitalist requesting transfer to medicine for stabilization. transferred to hospitalist service. Time Spent with Patient Time attestation: Total time managing care of this patient today ____ minutes. Discharge Plan Discharge Anticipated Discharge Date/Time: 11/27/23 22:02 Patient Disposition: [facility] Discharge Diagnosis: Delirium Referrals: Physician,Unknown J [Primary Care Provider] - 1 Week Discharge Medications: New quetiapine 25 mg Tablet 25 mg PO BID PRN (Reason: insomnia) Qty: 0 0RF acetaminophen 325 mg Tablet 650 mg PO Q6H PRN (Reason: Headache/Pain Mild Scale (1-3)) Qty: 0 0RF venlafaxine 75 mg Capsule,Extended Release 24hr 75 mg PO DAILY Qty: 0 0RF cefuroxime axetil 250 mg Tablet 250 mg PO Q12H Qty: 0 0RF atorvastatin 20 mg Tablet 20 mg PO BEDTIME Qty: 0 0RF trazodone 50 mg Tablet 50 mg PO BEDTIME MRX1 PRN (Reason: Insomnia) Qty: 0 0RF clonazepam 0.5 mg Tablet 0.5 mg PO BID PRN (Reason: agitation) Qty: 0 0RF mirtazapine 30 mg Tablet 30 mg PO BEDTIME Qty: 0 0RF quetiapine 50 mg Tablet 50 mg PO TID Qty: 0 0RF metformin 500 mg Tablet 500 mg PO BIDWM Qty: 0 0RF lisinopril 10 mg Tablet 10 mg PO DAILY Qty: 0 0RF hydrochlorothiazide 12.5 mg Tablet 12.5 mg PO DAILY Qty: 0 0RF Discontinued venlafaxine 75 mg capsule,extended release 24hr 75 mg PO BID simvastatin 40 mg tablet 40 mg PO BEDTIME mirtazapine 30 mg tablet 30 mg PO DAILY lisinopril-hydrochlorothiazide 10-12.5 mg tablet 1 tab PO DAILY metformin 500 mg tablet extended release 24 hr 500 mg PO BIDWM@0800 quetiapine 25 mg tablet 25 mg PO QID PRN (Reason: insomnia) clonazepam 0.5 mg tablet 0.5 mg PO BID PRN (Reason: agitation) nystatin [Nystop] 100,000 unit/gram powder 1 appl TOPICAL BID Discharge Orders: Discharge Order (Routine); Ordered 11/27/23 Ordered By: Maximo Bruce Diet: Advance to usual diet Activity on Discharge: As tolerated Stand Alone Forms: Patient Portal Discharge page Print Language: Belarusian Care Plan Goals: return to medical baseline Health Concerns: delirium hypotension Plan of Treatment: transfer to medicine Assessment: inpatient level of care
--- NOTE | 2023-11-27 22:07 | HO.PSYEVENT2 ---
Event Note Date of Service: 11/27/23 Psych On-Call Event Note: pt systolic BP to the 60s, transferred to medicine for stabilization and monitoring Time Spent With Patient Time: Total time managing care of this patient today ____ minutes.
[2023-11-27 22:11] LABS: Glucose, Whole Blood 136 mg/dL (60-115)
--- NOTE | 2023-11-27 22:33 | PC.NURSE ---
2200 pt is alert to self only, confused,with nonsensical speech. pt is visible in the milieu, pacing in the halls. pt resistible to care intially, including not allowing staff to get her vitals or taking HS meds. pt finally settled in the milieu, appears fatigue and sleepy. this RN approached Pt and administered HS meds together with prn Klonopin 0.5mg po. Automatic vitals BP 79/51, HR 113. This RN proceeded to do a manual repeat, BP 50-60's systolic on the left arm, couldn't get any reading on the right x2 attempt with charge nurse, with HR 100's. STARCH DUMPER paged, vitals 78/47, HR 97 and O2 via NC 94%. POC 136. see vital records for subsequent readings. pt was transferred to the medical floor with discharge orders by Dr Bruce.
== END 2023-11-27 22:06 | disposition short-term general hospital (02) | DRG 884 ==
LOC: HO.ED 11-23 11:04 → HO.PGERI 11-23 11:09
PROVIDERS: Physician Assistant Medical; Admitting Provider Psychiatry & Neurology Psychiatry; Emergency Provider Emergency Medicine; Visit Provider Psychiatry & Neurology Psychiatry
DX: F03.C11 Unspecified dementia, severe, with agitation (principal); R33.9 Retention of urine, unspecified; F05 Delirium due to known physiological condition; N39.0 Urinary tract infection, site not specified; E11.9 Type 2 diabetes mellitus without complications; I10 Essential (primary) hypertension; Z79.899 Other long term (current) drug therapy
CPT/HCPCS: 36415; 80053; 80061; 80307; 81001; 82565; 82947; 85025; 87086; 90656; 99285; S9485

== ENCOUNTER → 2023-11-23 10:48 | Outpatient (BNV) | payer MEDICARE, OTHER, SELFPAY | PROVIDERS: Admitting Provider Psychiatry & Neurology Psychiatry; Emergency Provider Emergency Medicine; Visit Provider Psychiatry & Neurology Psychiatry | DX: F03.C11 Unspecified dementia, severe, with agitation (principal); R41.0 Disorientation, unspecified | CPT/HCPCS: 90792; 99232; 99238; 99499 ==

== ENCOUNTER 2023-11-27 23:00 | Inpatient (IN) | payer MEDICARE, SELFPAY ==
--- NOTE | 2023-11-27 | ECG_ITS ---
Test Reason : hypotension Blood Pressure : / mmHG Vent. Rate : 073 BPM Atrial Rate : 073 BPM P-R Int : 180 ms QRS Dur : 078 ms QT Int : 396 ms P-R-T Axes : 073 015 009 degrees QTc Int : 436 ms Sinus rhythm with Premature atrial complexes Low voltage QRS Septal infarct (cited on or before 07-OCT-2023) Abnormal ECG When compared with ECG of 07-OCT-2023 17:38, Premature atrial complexes are now Present Referred By: Maribel Aggarwal Electronically Signed By:ADRIEN RESENDIZ MD
--- NOTE | ~2023-11-27 | XR_ITS ---
EXAMINATION: XR CHEST CLINICAL INFORMATION: Question pneumonia COMPARISON: None available. TECHNIQUE: Frontal view of the chest was obtained. FINDINGS: Normal appearance of the cardiomediastinal structures. Mild blunting of the left costophrenic sulcus. No pneumothoraces. Mild airspace opacification within the left lung base partially obscuring visualization of the descending aortic margin. Diffuse osteopenia. XR/XR chest 1V IMPRESSION: Mild left base atelectasis and/or consolidation. Findings could represent pneumonia. Possible trace left pleural effusion. Electronically signed by: Syed Putnam MD 11/28/2023 02:44 AM EDT
[2023-11-27 22:27] VITALS: BMI 30.6
--- NOTE | 2023-11-27 22:29 | PM.IMHP ---
History of Present Illness Date of Service: 11/27/23 Chief Complaint: Dizziness This is a 73-year-old female with pertinent history of advanced dementia, unspecified, hypertension, mood disorder, pen-nmjpohu-gznuvrwxi diabetes mellitus who was admitted to inpatient psychiatric unit for increasing behavioral disturbance. Rapid response was called as patient was complaining of dizziness and was found to be hypotensive. She is a poor historian and history obtained with the help of nurse at bedside and chart review. Patient does complain of dizziness and lightheadedness. No chest pain or palpitations. Manual blood pressure with systolic in the 70s. The nurse reported poor p.o. intake throughout the day. No vomiting or diarrhea. Patient received all her prescription home medications including antihypertensives and antipsychotics. Unable to obtain review of systems. Ordered IV crystalloid resuscitation and transfer to inpatient acute Medicine unit Review of Systems Review of Systems: Yes Unobtainable due to mental condition and Unobtainable due to mental status [facility] Medical History Non-insulin dependent type 2 diabetes mellitus Hypertension Mood disorder Severe dementia without behavioral disturbance, psychotic disturbance, mood disturbance, or anxiety Pertinent family history: Unable to obtain and not significant due to age Social History Household Members: Spouse Housing: House Comment: 1:1 Patient Tobacco Use Status: Tobacco use Unknown Advance Directives: No Advance Directives Information Provided: No service: No Sexual orientation: Straight/Heterosexual Meds Allergies Allergy/AdvReac Type Severity Reaction Status Date / Time Sulfa (Sulfonamide Allergy Unknown Verified 11/21/23 13:58 Antibiotics) Physical Exam Vital Signs and Narrative: Elderly female lying in bed in no distress Neck supple, no JVD Regular rate and rhythm, S1-S2 heard Regular breath sounds bilaterally, no wheezing or crackles appreciated Abdomen soft nontender, no guarding, no rigidity Patient is awake, alert and oriented to self, disoriented to place, time and person ; no focal motor deficit Psych: Normal mood No pedal edema Results Labs 11/27/23 23:47 11/27/23 23:47 Assessment and Plan (1) Hypotension: Status: Acute Plan This is a 73-year-old female with pertinent history of advanced dementia, unspecified, hypertension, mood disorder, mem-zthbkug-lpggisecl diabetes mellitus who was admitted to inpatient psychiatric unit for increasing behavioral disturbance, transferred to [facility] for treatment of hypotension. #. Hypotension: In the setting of decreased p.o. intake and continuation of antihypertensives/antipsychotics. No sepsis. Blood pressure improved with IV crystalloid resuscitation. Hold home antihypertensives #. Acute kidney injury stage I, prerenal: Monitor creatinine and urine output with crystalloid resuscitation. Avoid nephrotoxins #. Gbw-alixemu-ocuhuodxd diabetes mellitus: Initiating Accu-Cheks with sliding scale insulin #. Hypertension: Hold lisinopril hydrochlorothiazide in the setting of above #. Dementia with mood disorder: Maintain sleep-wake cycle Med rec pending DVT prophylaxis: Lovenox Full code Admit as inpatient and will require two night minimum hospital stay for close hemodynamic monitoring, monitoring of kidney function (as above), which is not possible in a lesser acute setting. Quality Stroke Does the patient have a stroke diagnosis?: No VTE Prior VTE?: No VTE Risk Level:: Medical - moderate - high VTE Device Contraindication: Treatment Not Indicated VTE Drug Contraindication: N/A - Med Ordered
[2023-11-27 23:52] LABS: MANUAL DIFF FLAG NO; Venous Blood Gas Refer to POC result
[2023-11-27 23:53] LABS: Basophils Percent Auto 0.4 % (0-2); Eosinophils Absolute Auto 0.1 X10*3/uL (0.0-0.4); Eosinophils Percent Auto 1.3 % (0-4); Hematocrit 36.5 % (37.0-47.0); Hemoglobin 12.3 g/dl (12.0-16.0); Imm Gran Abs Auto 0.02 X10*3/uL (0.00-0.03); Imm Gran Pct Auto 0.3 % (0.0-0.4); Lymphocytes Percent Auto 13.8 % (20-40); Mean Corpuscular HGB Conc 33.7 g/dl (31.0-35.0); Mean Corpuscular Hemoglobin 31.1 pg (27.0-33.0); Mean Corpuscular Volume 92.4 fL (80.0-98.0); Monocytes Absolute Auto 0.6 X10*3/uL (0.1-1.2); Monocytes Percent Auto 7.7 % (2-11); Neutrophils Absolute Auto 5.7 x10*3/uL (2.0-8.3); Neutrophils Percent Auto 76.5 % (45-73); Platelet Count 182 X10*3/uL (160-400); Red Blood Count 3.95 X10*6/uL (4.20-5.50); Red Cell Distribution Width 13.2 % (11.0-16.0); White Blood Count 7.4 X10*3/uL (4.8-10.8)
[2023-11-27 23:58] LABS: VBG Base Excess 1.7 mmol/L; VBG HCO3 26 mmol/L (22-26); VBG pCO2 42 mmHg; VBG pO2 60 mmHg
[2023-11-28] VITALS: BP 109/54; PULSE 71; RESP 18; TEMP 36.4; O2SAT 94
[2023-11-28 00:09] LABS: Alanine Aminotransferase 29 U/L (0-31); Albumin Level 4.2 g/dL (3.5-5.0); Alkaline Phosphatase 86 U/L (39-117); Anion Gap 18 (12-20); Aspartate Amino Transferase 36 U/L (5-31); Bilirubin Total 0.5 mg/dL (0.0-1.0); Blood Urea Nitrogen 44 mg/dL (9-16); Calcium 9.6 mg/dL (8.4-10.2); Carbon Dioxide 23 mmol/L (22-29); Chloride 103 mmol/L (96-108); Estimated Glomerular Filt Rate 26; Glucose Random 132 mg/dL (60-115); Potassium 4.5 mmol/L (3.3-5.1); Sodium 139 mmol/L (135-145)
[2023-11-28 00:12] LABS: Troponin-I High Sensitivity 13.8 ng/L (<3.5-17.0)
[2023-11-28 00:13] LABS: B Type Natriuretic Peptide 21 pg/mL (<100)
[2023-11-28] MEDS: Enoxaparin Sodium 30 MG/0.3 ML SYRINGE SUBCUT (03:26)
[2023-11-28] MEDS: 0.9 % Sodium Chloride Flush 3 ML SYRINGE IVFLUSH ×4 (03:26→20:19)
[2023-11-28] MEDS: Lactated Ringers 1,000 ML 999 ML IV (03:27)
--- NOTE | 2023-11-28 03:29 | PC.NURSE ---
pt transferred from [facility] after [employer] for hypotension. Pt arrived to unit via stretcher, bp upon arrival improved from previous pressure (systolic in 70's per report). Was reported from previous rn that pt was admitted from home due to agitation and aggression, and alert to self only. pt sleeping since arrival to unit. Sitter at bedside. NSR on tele.
[2023-11-28 03:35] VITALS: BP 118/56; PULSE 66; RESP 18; TEMP 36.8; O2SAT 96
[2023-11-28 07:42] LABS: Glucose, Whole Blood 100 mg/dL (60-115)
[2023-11-28 08:00] VITALS: BP 112/52; PULSE 70; RESP 20; TEMP 36.1; O2SAT 100
[2023-11-28 08:52] LABS: Creatinine Clr Calc Pharmacy 43.1; Estimated Glomerular Filt Rate 44
--- NOTE | 2023-11-28 09:07 | PHA.MEDREC ---
Pharmacy Consult ? Medication Reconciliation Pharmacy has completed the medication reconciliation. Utilized discharge packet from S1 11/26. Pt was moved from S1 to IMC.
--- NOTE | 2023-11-28 09:58 | P.PNIM_ITS ---
Subjective Subjective Date of Service: 11/28/23 Review of Systems Follow up hypotension, MITRA emotionally labile, crying, kicking Physical Exam 2 Vital Signs: Vital Signs: Last Vital Signs Temp 97.0 F 11/28/23 08:00 Pulse 70 11/28/23 08:00 Resp 20 11/28/23 08:00 BP 112/52 L 11/28/23 08:00 Pulse Ox 100 11/28/23 08:00 O2 Del Method Room Air 11/28/23 08:00 BMI result Body Mass Index 30.6 Appearing in no acute distress lung sounds are clear to auscultation heart regular rate rhythm, clear S1, S2 positive bowel sounds, abdomen is soft, nontender neuro patient is alert and confused Objective Data Active Medications Acetaminophen (Acetaminophen 325 Mg Tablet) 650 mg PO Q6H PRN PRN Reason: Pain, Mild (Pain Scale 1-3), fever or headache Calcium Carbonate (Calcium Carbonate 750 Mg Tab.Chew) 750 mg PO Q4H PRN PRN Reason: Heartburn Enoxaparin Sodium (Enoxaparin Sodium 40 Mg/0.4 Ml Syringe) 40 mg SUBCUT Q24H [facility] Glucose (Glucose Gel 15 Gm Gel..Gram.) 15 gm PO Q15M PRN; Protocol PRN Reason: per Hypoglycemia Standing Ord. Dextrose (D10) 250 mls @ 750 mls/hr IV Q15M PRN; Protocol PRN Reason: per Hypoglycemia Standing Ord. Insulin Human Lispro (Insulin Lispro 100 Unit/Ml 3 Ml Vial) 0 unit SUBCUT QIDACHS [facility]; Protocol Last Admin: 11/28/23 08:28 Dose: Not Given Documented By: KASSY Non-Admin Reason: No Insulin Coverage Magnesium Hydroxide (Milk Of Magnesia 30 Ml Oral.Susp) 30 ml PO DAILY PRN PRN Reason: Constipation Melatonin (Melatonin 3 Mg Tablet) 6 mg PO BEDTIME PRN PRN Reason: Insomnia Ondansetron HCl (Ondansetron Hcl 4 Mg/2 Ml Vial) 4 mg IVPUSH Q8H PRN PRN Reason: Nausea and Vomiting Sodium Chloride (0.9 % Sodium Chloride Flush 3 Ml Syringe) [facility] Last Admin: 11/28/23 08:40 Dose: 3 ml Documented By: KASSY Labs 11/27/23 23:47 11/28/23 08:29 Labs: Laboratory Results - last 24 hr 11/27/23 11/27/23 11/28/23 23:47 23:53 07:31 MCV 92.4 MCH 31.1 MCHC 33.7 RDW 13.2 Plt Count 182 MPV 11.0 Immature Gran % (Auto) 0.3 Neut % (Auto) 76.5 H Lymph % (Auto) 13.8 L [place] % (Auto) 7.7 Eos % (Auto) 1.3 Baso % (Auto) 0.4 Lymph # (Auto) 1.0 L [place] # (Auto) 0.6 Eos # (Auto) 0.1 Baso # (Auto) 0.0 Abs Immat Gran (auto) 0.02 Absolute Neuts (auto) 5.7 Absolute Nucleated RBC 0.000 Nucleated RBC % (auto) 0.0 VBG pH 7.40 VBG pCO2 42 VBG pO2 60 VBG HCO3 26 VBG O2 Saturation 85.0 VBG Base Excess 1.7 Anion Gap 18 Estim Creat Clear Calc TNP Estimated GFR 26 POC Glucose 100 Random Glucose 132 H Calcium 9.6 Total Bilirubin 0.5 AST 36 H ALT 29 Alkaline Phosphatase 86 Troponin I High Sens 13.8 B-Natriuretic Peptide 21 Total Protein 7.0 Albumin 4.2 11/28/23 08:29 MCV MCH MCHC RDW Plt Count MPV Immature Gran % (Auto) Neut % (Auto) Lymph % (Auto) [place] % (Auto) Eos % (Auto) Baso % (Auto) Lymph # (Auto) [place] # (Auto) Eos # (Auto) Baso # (Auto) Abs Immat Gran (auto) Absolute Neuts (auto) Absolute Nucleated RBC Nucleated RBC % (auto) VBG pH VBG pCO2 VBG pO2 VBG HCO3 VBG O2 Saturation VBG Base Excess Anion Gap Estim Creat Clear Calc 43.1 Estimated GFR 44 POC Glucose Random Glucose Calcium Total Bilirubin AST ALT Alkaline Phosphatase Troponin I High Sens B-Natriuretic Peptide Total Protein Albumin Assessment and Plan (1) Hypotension: Status: Acute Plan This is a 73-year-old female with pertinent history of advanced dementia, unspecified, hypertension, mood disorder, kty-xqcpbnx-htgeltolf diabetes mellitus who was admitted to inpatient psychiatric unit for increasing behavioral disturbance, transferred to [facility] for treatment of hypotension. Hypotension. Improving In the setting of decreased p.o. intake and continuation of antihypertensives/antipsychotics. No sepsis. Blood pressure improved with IV crystalloid resuscitation. Hold home antihypertensives Acute kidney injury stage I, prerenal. Improving Secondary to hypoperfusion from hypotension Monitor creatinine and urine output with crystalloid resuscitation. Avoid nephrotoxins Ctw-ngftzrv-adsjqymvd diabetes mellitus Initiating Accu-Cheks with sliding scale insulin Hypertension Hold lisinopril hydrochlorothiazide in the setting of above Dementia with mood disorder Maintain sleep-wake cycle DVT prophylaxis: Lovenox Attending Dr. Jean-Baptiste Full code Quality Stroke Does the patient have a stroke diagnosis?: No VTE Prior VTE?: No VTE Risk Level:: Medical - moderate - high VTE Device Contraindication: Treatment Not Indicated VTE Drug Contraindication: N/A - Med Ordered
[2023-11-28] MEDS: LORazepam 2 MG/ML VIAL 1 MG IVPUSH ×2 (10:20→17:42)
--- NOTE | 2023-11-28 11:25 | MHC.CM.PN ---
IMM 11/27. Pt with dx dementia, she was transferred from inpatient psych unit to [facility] No visitors were in pts room, and pt is unable to partake in CM intake assessment. This CM placed a call to pts spouse, Vish to complete CM intake assessment and address the IMM, a voicemail was left. Per chart review, pt lives at home with her /contract post office clerk Vish, and he plans to bring her home at discharge. No HCP available in pts paper chart or in expanse. No PCP is listed. CM will continue to follow and attempt to confirm pts information/discharge plan with pts family when they are available. DCP TBD: anticipate Care team will need to assess and pt may return to inpatient psych LOC vs returning home with her .
[2023-11-28 12:00] VITALS: BP 147/87; PULSE 83; RESP 14; TEMP 36.6; O2SAT 97
[2023-11-28 12:01] LABS: Glucose, Whole Blood 192 mg/dL (60-115)
[2023-11-28] MEDS: QUEtiapine Fumarate 50 MG TABLET PO ×3 (12:33→20:19)
[2023-11-28 13:43] LABS: Appearance Urine Clear; Color Urine Yellow; Glucose Urine UA Negative (Negative); Leukocyte Esterase Urine Negative (Negative); Nitrite Urine Negative (Negative); PH 6.5 (5.0-9.0); UMIC TRIGGER UACC YES; Urine Blood Trace (Negative); Urine Ketones Negative (Negative); Urine Protein Trace mg/dL (Neg-Trace)
[2023-11-28 14:05] LABS: Bacteria Urine None Seen (None Seen); Hyaline Casts Urine 0-2 /LPF (0-2); Squamous Epithelial Cell Urine 0-2 /HPF (0-2); WBC Urine 0-5 /HPF (0-5)
[2023-11-28 16:00] VITALS: BP 112/51; PULSE 84; RESP 16; TEMP 36.1; O2SAT 95
[2023-11-28 20:00] VITALS: BP 114/59; PULSE 87; RESP 20; TEMP 36.5; O2SAT 100
[2023-11-28] MEDS: Atorvastatin Calcium 20 MG TABLET PO (20:19)
[2023-11-28] MEDS: Mirtazapine 30 MG TABLET PO (20:19)
[2023-11-28] MEDS: Melatonin 3 MG TABLET 6 MG PO (20:21)
[2023-11-28 21:01] LABS: Glucose, Whole Blood 135 mg/dL (60-115)
[2023-11-29] VITALS (7 sets, daily range): BP systolic 107–157; BP diastolic 56–67; PULSE 67–99; RESP 16–20; TEMP 36.1–36.4; O2SAT 96–99
[2023-11-29] MEDS: LORazepam 2 MG/ML VIAL 1 MG IVPUSH ×3 (00:01→17:43)
--- NOTE | 2023-11-29 00:21 | PC.NURSE ---
Medicated with Ativan 1 mg IV for increased agitation, aggressive behavior, yelling and crying.
[2023-11-29 07:46] LABS: Glucose, Whole Blood 108 mg/dL (60-115)
[2023-11-29] MEDS: QUEtiapine Fumarate 50 MG TABLET PO ×3 (08:23→20:14)
[2023-11-29] MEDS: Venlafaxine HCl ER 75 MG CAP.ER.24H PO (08:23)
--- NOTE | 2023-11-29 10:08 | P.PNIM_ITS ---
Subjective Subjective Date of Service: 11/29/23 Review of Systems Follow up hypotension, MITRA emotionally labile, crying, kicking Physical Exam 2 Vital Signs: Vital Signs: Last Vital Signs Temp 97.3 F 11/29/23 08:00 Pulse 99 11/29/23 08:00 Resp 20 11/29/23 08:00 BP 107/59 L 11/29/23 08:00 Pulse Ox 98 11/29/23 08:00 O2 Del Method Room Air 11/29/23 08:00 BMI result Body Mass Index 30.6 Appearing in no acute distress lung sounds are clear to auscultation heart regular rate rhythm, clear S1, S2 positive bowel sounds, abdomen is soft, nontender neuro patient is alert x3, no focal deficits Objective Data Active Medications Acetaminophen (Acetaminophen 325 Mg Tablet) 650 mg PO Q6H PRN PRN Reason: Pain, Mild (Pain Scale 1-3), fever or headache Atorvastatin Calcium (Atorvastatin Calcium 20 Mg Tablet) 20 mg PO BEDTIME [facility] Last Admin: 11/28/23 20:19 Dose: 20 mg Documented By: MEENA Calcium Carbonate (Calcium Carbonate 750 Mg Tab.Chew) 750 mg PO Q4H PRN PRN Reason: Heartburn Clonazepam (Clonazepam 0.5 Mg Tablet) 0.5 mg PO BID PRN PRN Reason: agitation Enoxaparin Sodium (Enoxaparin Sodium 40 Mg/0.4 Ml Syringe) 40 mg SUBCUT Q24H [facility] Last Admin: 11/29/23 06:51 Dose: Not Given Documented By: MEENA Non-Admin Reason: Patient Refused Glucose (Glucose Gel 15 Gm Gel..Gram.) 15 gm PO Q15M PRN; Protocol PRN Reason: per Hypoglycemia Standing Ord. Dextrose (D10) 250 mls @ 750 mls/hr IV Q15M PRN; Protocol PRN Reason: per Hypoglycemia Standing Ord. Insulin Human Lispro (Insulin Lispro 100 Unit/Ml 3 Ml Vial) 0 unit SUBCUT QIDACHS [facility]; Protocol Last Admin: 11/29/23 07:29 Dose: Not Given Documented By: KASSY Non-Admin Reason: No Insulin Coverage Lorazepam (Lorazepam 2 Mg/Ml Vial) 1 mg IVPUSH Q6H PRN PRN Reason: anxiety/restlessness Last Admin: 11/29/23 06:46 Dose: 1 mg Documented By: MEENA Magnesium Hydroxide (Milk Of Magnesia 30 Ml Oral.Susp) 30 ml PO DAILY PRN PRN Reason: Constipation Melatonin (Melatonin 3 Mg Tablet) 6 mg PO BEDTIME PRN PRN Reason: Insomnia Last Admin: 11/28/23 20:21 Dose: 6 mg Documented By: MEENA Mirtazapine (Mirtazapine 30 Mg Tablet) 30 mg PO BEDTIME [facility] Last Admin: 11/28/23 20:19 Dose: 30 mg Documented By: MEENA Ondansetron HCl (Ondansetron Hcl 4 Mg/2 Ml Vial) 4 mg IVPUSH Q8H PRN PRN Reason: Nausea and Vomiting Quetiapine Fumarate (Quetiapine Fumarate 25 Mg Tablet) 25 mg PO BID PRN PRN Reason: insomnia Quetiapine Fumarate (Quetiapine Fumarate 50 Mg Tablet) 50 mg PO TID [facility] Last Admin: 11/29/23 08:23 Dose: 50 mg Documented By: KASSY Sodium Chloride (0.9 % Sodium Chloride Flush 3 Ml Syringe) 3 ml IVFLUSH QSHIFT [facility] Last Admin: 11/29/23 07:29 Dose: Not Given Documented By: KASSY Non-Admin Reason: Previously Administered Trazodone HCl (Trazodone Hcl 50 Mg Tablet) 50 mg PO BEDTIME MRX1 PRN PRN Reason: Insomnia Venlafaxine HCl (Venlafaxine Hcl Er 75 Mg Cap.Er.24h) 75 mg PO DAILY [facility] Last Admin: 11/29/23 08:23 Dose: 75 mg Documented By: KASSY Labs 11/27/23 23:47 11/28/23 08:29 Labs: Laboratory Results - last 24 hr 11/28/23 11/28/23 11/28/23 11:45 11:53 20:56 POC Glucose 192 H 135 H Urine Color Yellow Urine Appearance Clear Urine pH 6.5 Ur Specific [place] 1.020 Urine Protein Trace Urine Glucose (UA) Negative Urine Ketones Negative Urine Blood Trace H Urine Nitrite Negative Ur Leukocyte Esterase Negative Urine RBC 3-5 H Urine WBC 0-5 Ur Squamous Epith Cells 0-2 Urine Bacteria None Seen Hyaline Casts 0-2 11/29/23 07:27 POC Glucose 108 Urine Color Urine Appearance Urine pH Ur Specific [place] Urine Protein Urine Glucose (UA) Urine Ketones Urine Blood Urine Nitrite Ur Leukocyte Esterase Urine RBC Urine WBC Ur Squamous Epith Cells Urine Bacteria Hyaline Casts Assessment and Plan (1) Hypotension: Status: Acute Plan This is a 73-year-old female with pertinent history of advanced dementia, unspecified, hypertension, mood disorder, pkl-zqwfciy-uswoxcwsa diabetes mellitus who was admitted to inpatient psychiatric unit for increasing behavioral disturbance, transferred to [facility] for treatment of hypotension. Hypotension. Improving In the setting of decreased p.o. intake and continuation of antihypertensives/antipsychotics. No sepsis. Blood pressure improved with IV crystalloid resuscitation. Hold home antihypertensives Acute kidney injury stage I, prerenal. Improving Secondary to hypoperfusion from hypotension Monitor creatinine and urine output with crystalloid resuscitation. Avoid nephrotoxins Fen-smburud-lhunxchyr diabetes mellitus Initiating Accu-Cheks with sliding scale insulin Hypertension Hold lisinopril hydrochlorothiazide in the setting of above Dementia with mood disorder Maintain sleep-wake cycle DVT prophylaxis: Lovenox Attending Dr. Jean-Baptiste Full code Quality Stroke Does the patient have a stroke diagnosis?: No VTE Prior VTE?: No VTE Risk Level:: Medical - moderate - high VTE Device Contraindication: Treatment Not Indicated VTE Drug Contraindication: N/A - Med Ordered
[2023-11-29 11:24] LABS: Glucose, Whole Blood 180 mg/dL (60-115)
[2023-11-29] MEDS: 0.9 % Sodium Chloride Flush 3 ML SYRINGE IVFLUSH (15:48)
[2023-11-29 16:57] LABS: Glucose, Whole Blood 135 mg/dL (60-115)
--- NOTE | 2023-11-29 17:06 | PC.NURSE ---
Pt transfer from M/T to this unit. Pt is A&Ox1, Ambulatory, is taken care at home with family. Awaiting psych placement for medication adjustment r/t combative behavior and decline in dementia. Lungs clear, no c/o pain, no c/o n/v. 1:1 Sitter at bedside. Bruising noted on left arm and left thigh. and left arm IV site. Pt will not allow this communications writer to assess more carefully.
[2023-11-29 19:36] LABS: Glucose, Whole Blood 161 mg/dL (60-115)
[2023-11-29] MEDS: Atorvastatin Calcium 20 MG TABLET PO (20:14)
[2023-11-29] MEDS: Insulin Lispro 100 UNIT/ML 3 ML VIAL SUBCUT (20:14)
[2023-11-29] MEDS: Mirtazapine 30 MG TABLET PO (20:14)
[2023-11-30] MEDS: 0.9 % Sodium Chloride Flush 3 ML SYRINGE IVFLUSH ×2 (01:27→08:43)
[2023-11-30] MEDS: Enoxaparin Sodium 40 MG/0.4 ML SYRINGE SUBCUT (05:49)
[2023-11-30 07:28] VITALS: BP 146/65; PULSE 76; RESP 14; TEMP 36.4; O2SAT 96
[2023-11-30 07:29] LABS: Glucose, Whole Blood 99 mg/dL (60-115)
[2023-11-30] MEDS: Venlafaxine HCl ER 75 MG CAP.ER.24H PO (08:43)
[2023-11-30] MEDS: QUEtiapine Fumarate 50 MG TABLET PO (08:43)
--- NOTE | 2023-11-30 09:13 | PC.NURSE ---
Upon assessment pt IV access red, swollen, warm and leaking. pt removed no pain to area. IV access removed, tolerated well, no issues. Kylee Hope [employer] OPERATOR at bedside, pt does not need IV access. Pt is awaiting psych bed. Warm pack placed to site.
--- NOTE | 2023-11-30 10:17 | HO.PM.IMPN ---
Subjective Subjective Date of Service: 11/30/23 Review of Systems Follow up hypotension, MITRA better mental status today Physical Exam Vital Signs: Vital Signs: Last Vital Signs Temp 97.5 F 11/30/23 07:28 Pulse 76 11/30/23 07:28 Resp 14 11/30/23 07:28 BP 146/65 H 11/30/23 07:28 Pulse Ox 96 11/30/23 07:28 O2 Del Method Room Air 11/30/23 07:28 BMI result Body Mass Index 30.6 Appearing in no acute distress lung sounds are clear to auscultation heart regular rate rhythm, clear S1, S2 positive bowel sounds, abdomen is soft, nontender neuro patient is alert x3, no focal deficits Objective Data Active Medications Acetaminophen (Acetaminophen 325 Mg Tablet) 650 mg PO Q6H PRN PRN Reason: Pain, Mild (Pain Scale 1-3), fever or headache Atorvastatin Calcium (Atorvastatin Calcium 20 Mg Tablet) 20 mg PO BEDTIME [facility] Last Admin: 11/29/23 20:14 Dose: 20 mg Documented By: RIKKI Calcium Carbonate (Calcium Carbonate 750 Mg Tab.Chew) 750 mg PO Q4H PRN PRN Reason: Heartburn Clonazepam (Clonazepam 0.5 Mg Tablet) 0.5 mg PO BID PRN PRN Reason: agitation Enoxaparin Sodium (Enoxaparin Sodium 40 Mg/0.4 Ml Syringe) 40 mg SUBCUT Q24H [facility] Last Admin: 11/30/23 05:49 Dose: 40 mg Documented By: RIKKI Glucose (Glucose Gel 15 Gm Gel..Gram.) 15 gm PO Q15M PRN; Protocol PRN Reason: per Hypoglycemia Standing Ord. Dextrose (D10) 250 mls @ 750 mls/hr IV Q15M PRN; Protocol PRN Reason: per Hypoglycemia Standing Ord. Insulin Human Lispro (Insulin Lispro 100 Unit/Ml 3 Ml Vial) 0 unit SUBCUT QIDACHS [facility]; Protocol Last Admin: 11/30/23 07:30 Dose: Not Given Documented By: COTEMA Non-Admin Reason: No Insulin Coverage Lorazepam (Lorazepam 2 Mg/Ml Vial) 1 mg IVPUSH Q6H PRN PRN Reason: anxiety/restlessness Last Admin: 11/29/23 17:43 Dose: 1 mg Documented By: MAMADOU Magnesium Hydroxide (Milk Of Magnesia 30 Ml Oral.Susp) 30 ml PO DAILY PRN PRN Reason: Constipation Melatonin (Melatonin 3 Mg Tablet) 6 mg PO BEDTIME PRN PRN Reason: Insomnia Last Admin: 11/28/23 20:21 Dose: 6 mg Documented By: MEENA Mirtazapine (Mirtazapine 30 Mg Tablet) 30 mg PO BEDTIME [facility] Last Admin: 11/29/23 20:14 Dose: 30 mg Documented By: RIKKI Ondansetron HCl (Ondansetron Hcl 4 Mg/2 Ml Vial) 4 mg IVPUSH Q8H PRN PRN Reason: Nausea and Vomiting Quetiapine Fumarate (Quetiapine Fumarate 25 Mg Tablet) 25 mg PO BID PRN PRN Reason: insomnia Quetiapine Fumarate (Quetiapine Fumarate 50 Mg Tablet) 50 mg PO TID [facility] Last Admin: 11/30/23 08:43 Dose: 50 mg Documented By: REBECCAEMA Sodium Chloride (0.9 % Sodium Chloride Flush 3 Ml Syringe) 3 ml IVFLUSH QSHIFT [facility] Last Admin: 11/30/23 08:43 Dose: 3 ml Documented By: MORENO Trazodone HCl (Trazodone Hcl 50 Mg Tablet) 50 mg PO BEDTIME MRX1 PRN PRN Reason: Insomnia Venlafaxine HCl (Venlafaxine Hcl Er 75 Mg Cap.Er.24h) 75 mg PO DAILY [facility] Last Admin: 11/30/23 08:43 Dose: 75 mg Documented By: MORENO Labs 11/27/23 23:47 11/28/23 08:29 Labs: Laboratory Results - last 24 hr 11/29/23 11/29/23 11/29/23 11:05 16:42 19:28 POC Glucose 180 H 135 H 161 H 11/30/23 07:24 POC Glucose 99 Assessment and Plan (1) Hypotension: Status: Acute Plan This is a 73-year-old female with pertinent history of advanced dementia, unspecified, hypertension, mood disorder, nmm-ugvucpb-tzxjkefmd diabetes mellitus who was admitted to inpatient psychiatric unit for increasing behavioral disturbance, transferred to [facility] for treatment of hypotension. Hypotension. Resolved In the setting of decreased p.o. intake and continuation of antihypertensives/antipsychotics. No sepsis. Blood pressure improved with IV crystalloid resuscitation. Continue to hold home antihypertensives Acute kidney injury stage I, prerenal. Resolved Secondary to hypoperfusion from hypotension Monitor creatinine and urine output with crystalloid resuscitation. Avoid nephrotoxins Bxe-ekqwzkq-wxwcpeqhg diabetes mellitus Initiating Accu-Cheks with sliding scale insulin Hypertension Hold lisinopril hydrochlorothiazide in the setting of above Dementia with mood disorder Maintain sleep-wake cycle DVT prophylaxis: Lovenox Attending Dr. Pate Full code Quality Stroke Does the patient have a stroke diagnosis?: No VTE Prior VTE?: No VTE Risk Level:: Medical - moderate - high VTE Device Contraindication: Treatment Not Indicated VTE Drug Contraindication: N/A - Med Ordered
[2023-11-30] MEDS: clonazePAM 0.5 MG TABLET PO (11:02)
[2023-11-30] MEDS: Insulin Lispro 100 UNIT/ML 3 ML VIAL SUBCUT (11:07)
[2023-11-30 11:08] LABS: Glucose, Whole Blood 218 mg/dL (60-115)
--- NOTE | 2023-11-30 12:09 | P.DS_ITS ---
DS: Providers Provider Date of Service: 11/30/23 Date of admission: 11/27/23 23:00 Primary care physician: Unknown Physician Consults: 11/28/23 06:03 Consult for Sitter Routine Reason for consultation: safety for disorganization 11/29/23 07:30 Consult to Care Team Routine Comment: Reason for consultation: medically clear DS: Diagnosis Discharge Diagnosis (1) Hypotension: Status: Acute DS: Summary Hospital Course Hospital Course: History and physical as per admitting provider. This is a 73-year-old female with pertinent history of advanced dementia, unspecified, hypertension, mood disorder, rot-gnikvsw-doqubyiop diabetes mellitus who was admitted to inpatient psychiatric unit for increasing behavioral disturbance. Rapid response was called as patient was complaining of dizziness and was found to be hypotensive. She is a poor historian and history obtained with the help of nurse at bedside and chart review. Patient does complain of dizziness and lightheadedness. No chest pain or palpitations. Manual blood pressure with systolic in the 70s. The nurse reported poor p.o. intake throughout the day. No vomiting or diarrhea. Patient received all her prescription home medications including antihypertensives and antipsychotics. Unable to obtain review of systems. Ordered IV crystalloid resuscitation and transfer to inpatient acute Medicine unit 73-year-old woman treated for hypotension in the setting of decreased oral intake and continuation of antihypertensive medications. No sepsis or infectious source noted. Blood pressures improved with IV fluids and the holdi ng of her antihypertensive medications. She was also noted to have MITRA secondary to hypoperfusion from hypotension but this also resolved with IV fluid medications. At this time patient is stable, systolic blood pressure has been 1 teens to 150s off of her lisinopril and hydrochlorothiazide, will add back lisinopril at 5 mg and stop hydrochlorothiazide. Plan is to transfer back to [facility] psych for completion of mental health workup. Diabetes mellitus type 2. Continue metformin Mental health. Continue Effexor, trazodone, Seroquel, clonazepam Hyperlipidemia. Continue statin Dementia. Supportive care Time Attestation Discharge Coordination Time (in mins): 32 Quality: Safe Use of Opioids Does Pt have an Active Cancer Diagnosis on the Problem List?: No Quality: Stroke Does the patient have a stroke diagnosis?: No Physical Exam Vital Signs: Vital Signs: Last Vital Signs Temp 97.5 F 11/30/23 07:28 Pulse 76 11/30/23 07:28 Resp 14 11/30/23 07:28 BP 146/65 H 11/30/23 07:28 Pulse Ox 96 11/30/23 07:28 O2 Del Method Room Air 11/30/23 07:28 BMI result Body Mass Index 30.6 Appearing in no acute distress head is normocephalic atraumatic eyes pupils are PERRLA sclera is anicteric mouth throat mucous membranes are intact and moist neck is supple no lymphadenopathy, no JVD noted lung sounds are clear to auscultation heart regular rate rhythm, clear S1, S2 positive bowel sounds, abdomen is soft, nontender neuro patient is alert x3, no focal deficits DS: Data Data Completed and Pending Labs on day of discharge: Laboratory Results - last 24 hr 11/29/23 11/29/23 11/30/23 16:42 19:28 07:24 POC Glucose 135 H 161 H 99 11/30/23 11:03 POC Glucose 218 H Discharge Plan Discharge Anticipated Discharge Date/Time: 11/30/23 12:19 Patient Disposition: Xfer Psychiatric Hosp Discharge Diagnosis: Hypotension MITRA Discharge Medications: New lisinopril 5 mg tablet 5 mg PO DAILY Qty: 30 0RF Continued quetiapine 25 mg Tablet 25 mg PO BID PRN (Reason: insomnia) Qty: 0 0RF acetaminophen 325 mg Tablet 650 mg PO Q6H PRN (Reason: Headache/Pain Mild Scale (1-3)) Qty: 0 0RF venlafaxine 75 mg Capsule,Extended Release 24hr 75 mg PO DAILY Qty: 0 0RF atorvastatin 20 mg Tablet 20 mg PO BEDTIME Qty: 0 0RF trazodone 50 mg Tablet 50 mg PO BEDTIME MRX1 PRN (Reason: Insomnia) Qty: 0 0RF clonazepam 0.5 mg Tablet 0.5 mg PO BID PRN (Reason: agitation) Qty: 0 0RF mirtazapine 30 mg Tablet 30 mg PO BEDTIME Qty: 0 0RF quetiapine 50 mg Tablet 50 mg PO TID Qty: 0 0RF metformin 500 mg Tablet 500 mg PO BIDWM Qty: 0 0RF Discontinued cefuroxime axetil 250 mg Tablet 250 mg PO Q12H Qty: 0 0RF lisinopril 10 mg Tablet 10 mg PO DAILY Qty: 0 0RF hydrochlorothiazide 12.5 mg Tablet 12.5 mg PO DAILY Qty: 0 0RF Discharge Orders: Discharge Order (Routine); Ordered 11/30/23 Ordered By: Kylee Hope Diet: Advance to usual diet Activity on Discharge: As tolerated Stand Alone Forms: Patient Portal Discharge page Print Language: Polish Care Plan Goals: Transfer to [facility] for continuation of mental health treatment Health Concerns: Hypotension MITRA Plan of Treatment: Take all medications as prescribed Follow blood pressure closely Assessment: See discharge summary
== END 2023-11-30 13:04 | DRG 315 ==
LOC: HO.IMC 11-28 07:08 → HO.S3 11-29 15:35
PROVIDERS: Admitting Provider Student in an Organized Health Care Education/Training Program; Visit Provider Nurse Practitioner Acute Care
DX: I95.9 Hypotension, unspecified (principal); F03.93 Unspecified dementia, unspecified severity, with mood disturbance; N17.9 Acute kidney failure, unspecified; I10 Essential (primary) hypertension; E11.9 Type 2 diabetes mellitus without complications; Z79.84 Long term (current) use of oral hypoglycemic drugs; Z79.899 Other long term (current) drug therapy
CPT/HCPCS: 36415; 71045; 80053; 81001; 82565; 82803; 82947; 83880; 84484; 85025; 93005; J1650; J2060; J7120; S9485

== ENCOUNTER 2023-11-27 23:00 | Outpatient (BNV) | payer MEDICARE, OTHER, SELFPAY | END 2023-11-27 23:56 | PROVIDERS: Admitting Provider Student in an Organized Health Care Education/Training Program; Visit Provider Internal Medicine Cardiovascular Disease | DX: I95.9 Hypotension, unspecified (principal); R94.31 Abnormal electrocardiogram [ECG] [EKG]; I49.1 Atrial premature depolarization | CPT/HCPCS: 93010 ==

== ENCOUNTER → 2023-11-27 23:00 | Outpatient (BNV) | payer MEDICARE, OTHER, SELFPAY | PROVIDERS: Admitting Provider Student in an Organized Health Care Education/Training Program; Visit Provider Student in an Organized Health Care Education/Training Program | DX: E11.65 Type 2 diabetes mellitus with hyperglycemia (principal); N17.9 Acute kidney failure, unspecified | CPT/HCPCS: 99223; 99232; 99239; 99499 ==

== ENCOUNTER 2023-11-30 13:06 | Inpatient (IN) | payer MEDICARE, SELFPAY ==
[2023-11-30 15:14] VITALS: BP 120/69; PULSE 101; RESP 16; TEMP 36.2; O2SAT 100
[2023-11-30 15:15] VITALS: BMI 30.4
[2023-11-30] MEDS: hydrOXYzine HCL 25 MG TABLET PO (17:27)
--- NOTE | 2023-11-30 17:32 | PC.ADMIT ---
Pt arrived on the unit at 13:30, from [facility] miiCard tele, on a CV by HCP. Precipitants of this admission include being discharged from the medical floor and ready to continue psychiatric treatment on S1. Pt tearful, confused, uncooperative, difficult to redirect, labile, and agitated, and non-sensical. Pt was unable to participate for admission assessment. Pt is on 1:1 observation for confusion and wandering. Skin check was done - nothing significant found other than scattered bruises (from what appears to be blood draws). She is not group appropriate at the moment.
[2023-11-30] MEDS: QUEtiapine Fumarate 50 MG TABLET PO ×2 (18:42→20:53)
[2023-11-30 20:00] VITALS: BP 95/57; PULSE 95; RESP 18; TEMP 37.2; O2SAT 98
[2023-11-30 20:27] LABS: Glucose, Whole Blood 142 mg/dL (60-115)
[2023-11-30] MEDS: Melatonin 3 MG TABLET 6 MG PO (20:52)
[2023-11-30] MEDS: Mirtazapine 30 MG TABLET PO (20:53)
[2023-11-30] MEDS: Atorvastatin Calcium 20 MG TABLET PO (20:53)
[2023-12-01 06:57] LABS: Glucose, Whole Blood 97 mg/dL (60-115)
[2023-12-01 09:55] VITALS: BP 109/59; PULSE 65; RESP 18; TEMP 36.6; O2SAT 96
[2023-12-01] MEDS: QUEtiapine Fumarate 50 MG TABLET PO ×3 (10:02→20:18)
[2023-12-01] MEDS: Venlafaxine HCl ER 75 MG CAP.ER.24H PO (10:02)
[2023-12-01] MEDS: Flu Vacc TS2024-25(6mos up)/PF 0.5 ML SYRINGE IM (10:06)
[2023-12-01] MEDS: Insulin Lispro 100 UNIT/ML 3 ML VIAL SUBCUT (11:33)
[2023-12-01 11:39] LABS: Glucose, Whole Blood 172 mg/dL (60-115)
[2023-12-01] MEDS: clonazePAM 0.5 MG TABLET PO ×2 (12:10→20:56)
--- NOTE | 2023-12-01 12:35 | P.HPPS_ITS ---
HPI Date of Service: 12/01/23 Chief Complaint: mental health crisis Sources of Information: patient interviewed, chart reviewed and crisis/core team assessment reviewed HPI Subjective Notes: Section 12B Narrative: The patient is a 73-year-old female, , mother of adult children, living with her with a history of advanced dementia. The patient was brought to the emergency room by her reporting that she had been more agitated with disorganized behavior in the last week. Apparently, as per 's report, her baseline is poor, she had been diagnosed on several medical comorbidities, including dementia advanced. While she was in the emergency room, she was assessed by the crisis team. It seems that in the last days there had been more aggression and disorganized behavior. While she was in the emergency room a urinalysis was order and came up with 6 WBCs but negative cultures so she was not started on antibiotics. We tried to interview the patient but the patient was severely confused wandering on one-to-one for safety. We interview her who reported the patient had a remote history of depression with ECT when she was 16 but she never had followed any psychiatric treatment and her mental status have declined in the last years slowly but progressively. They came to the emergency room asking for help since the patient was unable to be taken care by her elderly . The patient is a very poor historian and we will try to gather more collateral information, this moment the patient is unable to sign a CV or any other document, she snored staff and she is wandering confused. Vital signs are stable at this point Past Psychiatric History: no psychiatric hx been managed by neuro and pcp. As per her 's report she had a remote history of depression with ECT when sh e was 16. She required inpatient level of care at the time. While she was in the unit suddenly she had an episode of hypotensive and she needed to be assessed by medical team, she was transferred upstairs and stabilized with some medication changes in her blood pressure medication return back for continuation of treatment. Past Psychiatric History: no psychiatric hx been managed by neuro and pcp. As per her 's report she had a remote history of depression with ECT when she was 16. She required inpatient level of care at the time. Medical Evaluation Reviewed: Yes [facility] Medical History Non-insulin dependent type 2 diabetes mellitus Hypertension Mood disorder Severe dementia without behavioral disturbance, psychotic disturbance, mood disturbance, or anxiety Family History: Unknown Social History: lots of family support- but has been giving 1:1 care for some time Substance History: Denies Trauma History: Unknown Diagnostics Vital Signs (24Hr): Vital Signs - 24 hr 11/30/23 15:14 11/30/23 20:00 12/01/23 09:55 Temperature 97.1 F 98.9 F 98 F Pulse Rate 101 H 95 65 Respiratory Rate 16 18 18 Blood Pressure 120/69 95/57 L 109/59 L Pulse Oximetry 100 98 96 Oxygen Delivery Method Room Air Room Air Room Air BMI result Body Mass Index 30.4 Labs Labs: Laboratory Results - last 48 hr 11/30/23 12/01/23 12/01/23 19:46 06:52 11:12 POC Glucose 142 H 97 172 H Meds/Allergies Meds Home Medications ?Medication ?Instructions ?Recorded ?Confirmed ?Type calcium carbonate (Tums) 300 mg PO Q4H PRN Heartburn 11/30/23 11/30/23 History enoxaparin 40 mg/0.4 mL 40 mg subcut DAILY@0600 11/30/23 11/30/23 History subcutaneous syringe (Lovenox) melatonin 3 mg tablet 6 mg PO BEDTIME PRN Sleep 11/30/23 11/30/23 History Allergies Allergies Allergy/AdvReac Type Severity Reaction Status Date / Time Sulfa (Sulfonamide Allergy Unknown Verified 11/21/23 13:58 Antibiotics) Mental Status Exam Mental Status Exam Patient Appearance: Appropriate Patient Orientation: Person and Situation Level of Consciousness: Awake and Disoriented Patient Behavior: Guarded and Suspicious Mood Description: Withdrawn Affect Description: Labile Patient Cognition Impaired: Yes Ability to Follow Directions: Good Speech Pattern: Clear Hallucinations: None Delusions: Not Present Thought Process: Distracted and Slowed Thinking Thought Content: positive for [place] and positive for Poverty of Content Judgement: Poor Assessment & Plan Assessment & Plan (1) Mood disorder: Status: Acute Code(s): F39 - Unspecified mood [affective] disorder (2) Dementia: Status: Acute Code(s): F03.90 - Unspecified dementia, unspecified severity, without behavioral disturbance, psychotic disturbance, mood disturbance, and anxiety (3) Non-insulin dependent type 2 diabetes mellitus: Status: Acute Code(s): E11.9 - Type 2 diabetes mellitus without complications (4) Hypertension: Status: Acute Code(s): I10 - Essential (primary) hypertension Plan The patient is an elderly female with a past history of dementia and other medical comorbidities who was admitted into the hospital for exacerbation of disorganization. While she was here, she became hypotensive and she needed to be seen and treated by the medical team. After being medically stable she was sent back to the unit. Plan 1. Continue with same treatment. 2. Continue with medical recommendations. 3. Family meeting for today to discuss discharge planning. 4. Continue the same level of observation Patient educated on: diagnosis, therapeutic strategies and medical condition Informed Consent: does not understand Reason for continued inpatient stay Substantial Risk for: inability to function, rapid decompensation and med/psych decompensation Statement Statement: I have reviewed the history and physical and performed a pertinent examination on my patient. No changes have occurred unless specified. If the History and Physical was not performed prior to admission, the Hospitalist's service will be consulted for completing the admission physical. Time Spent With Patient Time: Total time managing care of this patient today _45___ minutes.
[2023-12-01 16:28] LABS: Glucose, Whole Blood 116 mg/dL (60-115)
[2023-12-01 20:00] VITALS: BP 112/68; PULSE 78; TEMP 36.8; O2SAT 97
[2023-12-01] MEDS: traZODone HCL 50 MG TABLET PO (20:18)
[2023-12-01] MEDS: Atorvastatin Calcium 20 MG TABLET PO (20:18)
[2023-12-01] MEDS: Mirtazapine 30 MG TABLET PO (20:18)
[2023-12-01 20:38] LABS: Glucose, Whole Blood 130 mg/dL (60-115)
[2023-12-02 06:50] LABS: Glucose, Whole Blood 109 mg/dL (60-115)
[2023-12-02 08:00] VITALS: BP 119/57; PULSE 76; RESP 18; TEMP 36; O2SAT 96
[2023-12-02] MEDS: QUEtiapine Fumarate 50 MG TABLET PO (08:45)
[2023-12-02] MEDS: Venlafaxine HCl ER 75 MG CAP.ER.24H PO (09:10)
[2023-12-02 11:06] LABS: Glucose, Whole Blood 128 mg/dL (60-115)
--- NOTE | 2023-12-02 15:24 | HO.PSYCHPN ---
Subjective Subjective Date of Service: 12/02/23 Reason For Visit: mental health crisis Subjective Notes: Conditional Voluntary Interim History: The nursing staff reported the patient had been tearful at times, she was aggressive against her later yesterday. In the HS she was still aggressive. During the family meeting, his primary caregiver reported that benzodiazepines do not over-sedated her or disinhibited her and Seroquel has not work so we decided to change antipsychotics. On interview the patient looks pleasantly confused pacing in the hallway with a doll. Mental Status Exam Mental Status Exam Patient Appearance: Appropriate Patient Orientation: Person and Situation Level of Consciousness: Awake and Appropriate Patient Behavior: Guarded and Passive Mood Description: Withdrawn Affect Description: Blunted Patient Cognition Impaired: Yes Ability to Follow Directions: Good Speech Pattern: Clear and Impoverished Hallucinations: None Delusions: Not Present Thought Process: Distracted and Slowed Thinking Thought Content: positive for [place] and positive for Poverty of Content Judgement: Poor Diagnostics Vital Signs (24Hr): Vital Signs - 24 hr 12/01/23 20:00 12/02/23 08:00 Temperature 98.2 F 96.8 F Pulse Rate 78 76 Respiratory Rate 18 Blood Pressure 112/68 119/57 L Pulse Oximetry 97 96 Oxygen Delivery Method Room Air Room Air BMI result Body Mass Index 30.4 Labs Labs: Laboratory Results - last 48 hr 11/30/23 12/01/23 12/01/23 19:46 06:52 11:12 POC Glucose 142 H 97 172 H 12/01/23 12/01/23 12/02/23 16:17 20:33 06:45 POC Glucose 116 H 130 H 109 12/02/23 11:01 POC Glucose 128 H Medications Medications Current Medications Acetaminophen (Acetaminophen 325 Mg Tablet) 650 mg PO Q6H PRN PRN Reason: Headache/Pain Mild Scale (1-3) Al Hydroxide/Mg Hydroxide (Magnesium Hydrox/Alum Hydrox 30 Ml Oral.Susp) 30 ml PO Q6H PRN PRN Reason: Heartburn/Nausea Aripiprazole (Aripiprazole 5 Mg Tablet) 5 mg PO BEDTIME SARAH Atorvastatin Calcium (Atorvastatin Calcium 20 Mg Tablet) 20 mg PO BEDTIME SARAH Last Admin: 12/01/23 20:18 Dose: 20 mg Calcium Carbonate (Calcium Carbonate 750 Mg Tab.Chew) 300 mg PO Q4H PRN PRN Reason: Heartburn Clonazepam (Clonazepam 0.5 Mg Tablet) 0.5 mg PO BID PRN PRN Reason: agitation Last Admin: 12/01/23 20:56 Dose: 0.5 mg Clonazepam (Clonazepam 0.125 Mg Tab.Rapdis) 0.25 mg PO TID [facility] Last Admin: 12/02/23 14:30 Dose: 0.25 mg Glucose (Glucose Gel 15 Gm Gel..Gram.) 15 gm PO Q15M PRN; Protocol PRN Reason: per Hypoglycemia Standing Ord. Hydroxyzine HCl (Hydroxyzine Hcl 25 Mg Tablet) 25 mg PO Q6H PRN PRN Reason: Anxiety Last Admin: 11/30/23 17:27 Dose: 25 mg Dextrose (D10) 250 mls @ 750 mls/hr IV Q15M PRN; Protocol PRN Reason: per Hypoglycemia Standing Ord. Insulin Human Lispro (Insulin Lispro 100 Unit/Ml 3 Ml Vial) 0 unit SUBCUT QIDACHS [facility]; Protocol Last Admin: 12/02/23 11:08 Dose: Not Given Magnesium Hydroxide (Milk Of Magnesia 30 Ml Oral.Susp) 30 ml PO DAILY PRN PRN Reason: Constipation Melatonin (Melatonin 3 Mg Tablet) 6 mg PO BEDTIME PRN PRN Reason: Sleep Last Admin: 11/30/23 20:52 Dose: 6 mg Mirtazapine (Mirtazapine 30 Mg Tablet) 30 mg PO BEDTIME SARAH Last Admin: 12/01/23 20:18 Dose: 30 mg Trazodone HCl (Trazodone Hcl 50 Mg Tablet) 50 mg PO BEDTIME MRX1 PRN PRN Reason: Insomnia Last Admin: 12/01/23 20:18 Dose: 50 mg Trazodone HCl (Trazodone Hcl 50 Mg Tablet) 50 mg PO BEDTIME MRX1 PRN PRN Reason: Insomnia Venlafaxine HCl (Venlafaxine Hcl Er 75 Mg Cap.Er.24h) 75 mg PO DAILY [facility] Last Admin: 12/02/23 09:10 Dose: 75 mg Allergies Allergies Allergy/AdvReac Type Severity Reaction Status Date / Time Sulfa (Sulfonamide Allergy Unknown Verified 11/21/23 13:58 Antibiotics) Assessment & Plan Assessment & Plan (1) Mood disorder: Status: Acute Code(s): F39 - Unspecified mood [affective] disorder (2) Dementia: Status: Acute Code(s): F03.90 - Unspecified dementia, unspecified severity, without behavioral disturbance, psychotic disturbance, mood disturbance, and anxiety (3) Non-insulin dependent type 2 diabetes mellitus: Status: Acute Code(s): E11.9 - Type 2 diabetes mellitus without complications (4) Hypertension: Status: Acute Code(s): I10 - Essential (primary) hypertension Plan The patient is an elderly female with a past history of dementia and other medical comorbidities who was admitted into the hospital for exacerbation of disorganization. While she was here, she became hypotensive and she needed to be seen and treated by the medical team. After being medically stable she was sent back to the unit. Plan 1. Continue with same treatment. 2. Continue with medical recommendations. 3. Family meeting for today to discuss discharge planning. 4. Continue the same level of observation 5. Discontinue Seroquel and starts Abilify 5 mg p.o. q.h.s.. 6. Start Klonopin 0.25 p.o. t.i.d. standing on December 01. Reason for continued inpatient stay Substantial Risk for: inability to function, rapid decompensation and med/psych decompensation Time Spent With Patient Time: Total time managing care of this patient today __20__ minutes.
[2023-12-02 16:25] LABS: Glucose, Whole Blood 127 mg/dL (60-115)
[2023-12-02 20:00] VITALS: BP 124/71; PULSE 81; RESP 16; TEMP 36.2; O2SAT 95
[2023-12-02] MEDS: ARIPiprazole 5 MG TABLET PO (20:23)
[2023-12-02] MEDS: Mirtazapine 30 MG TABLET PO (20:24)
[2023-12-02] MEDS: Atorvastatin Calcium 20 MG TABLET PO (20:24)
[2023-12-02 20:28] LABS: Glucose, Whole Blood 125 mg/dL (60-115)
[2023-12-02] MEDS: traZODone HCL 50 MG TABLET PO (22:27)
[2023-12-02] MEDS: Melatonin 3 MG TABLET 6 MG PO (22:27)
[2023-12-02] MEDS: clonazePAM 0.5 MG TABLET PO (22:27)
[2023-12-02] MEDS: hydrOXYzine HCL 25 MG TABLET PO (22:27)
[2023-12-03 06:45] LABS: Glucose, Whole Blood 106 mg/dL (60-115)
[2023-12-03 08:00] VITALS: BP 128/72; PULSE 77; RESP 18; O2SAT 98
[2023-12-03] MEDS: Venlafaxine HCl ER 75 MG CAP.ER.24H PO (08:27)
[2023-12-03 11:23] LABS: Glucose, Whole Blood 137 mg/dL (60-115)
--- NOTE | 2023-12-03 16:39 | P.PNPSI_ITS ---
Subjective Subjective Date of Service: 12/03/23 Reason For Visit: mental health crisis Subjective Notes: Conditional Voluntary Interim History: The nursing staff reported the patient remains on one-to-one she looks overall better since it was changed from Seroquel to Abilify. On interview the patient is pleasantly confused easily redirectable less anxious. Mental Status Exam Mental Status Exam Patient Appearance: Appropriate Patient Orientation: Person and Situation Level of Consciousness: Awake and Appropriate Patient Behavior: Guarded and Passive Mood Description: Withdrawn Affect Description: Constricted Patient Cognition Impaired: Yes Ability to Follow Directions: Good Speech Pattern: Clear Hallucinations: None Delusions: Not Present Thought Process: Distracted and Slowed Thinking Thought Content: positive for [place] and positive for Poverty of Content Judgement: Fair Diagnostics Vital Signs (24Hr): Vital Signs - 24 hr 12/02/23 20:00 12/03/23 08:00 Temperature 97.1 F Pulse Rate 81 77 Respiratory Rate 16 18 Blood Pressure 124/71 128/72 Pulse Oximetry 95 98 Oxygen Delivery Method Room Air Room Air BMI result Body Mass Index 30.4 Labs Labs: Laboratory Results - last 48 hr 12/01/23 12/02/23 12/02/23 20:33 06:45 11:01 POC Glucose 130 H 109 128 H 12/02/23 12/02/23 12/03/23 16:20 20:22 06:33 POC Glucose 127 H 125 H 106 12/03/23 11:19 POC Glucose 137 H Medications Medications Current Medications Acetaminophen (Acetaminophen 325 Mg Tablet) 650 mg PO Q6H PRN PRN Reason: Headache/Pain Mild Scale (1-3) Al Hydroxide/Mg Hydroxide (Magnesium Hydrox/Alum Hydrox 30 Ml Oral.Susp) 30 ml PO Q6H PRN PRN Reason: Heartburn/Nausea Aripiprazole (Aripiprazole 5 Mg Tablet) 5 mg PO BEDTIME SARAH Last Admin: 12/02/23 20:23 Dose: 5 mg Atorvastatin Calcium (Atorvastatin Calcium 20 Mg Tablet) 20 mg PO BEDTIME SARAH Last Admin: 12/02/23 20:24 Dose: 20 mg Calcium Carbonate (Calcium Carbonate 750 Mg Tab.Chew) 300 mg PO Q4H PRN PRN Reason: Heartburn Clonazepam (Clonazepam 0.5 Mg Tablet) 0.5 mg PO BID PRN PRN Reason: agitation Last Admin: 12/02/23 22:27 Dose: 0.5 mg Clonazepam (Clonazepam 0.125 Mg Tab.Rapdis) 0.25 mg PO TID [facility] Last Admin: 12/03/23 14:07 Dose: 0.25 mg Glucose (Glucose Gel 15 Gm Gel..Gram.) 15 gm PO Q15M PRN; Protocol PRN Reason: per Hypoglycemia Standing Ord. Hydroxyzine HCl (Hydroxyzine Hcl 25 Mg Tablet) 25 mg PO Q6H PRN PRN Reason: Anxiety Last Admin: 12/02/23 22:27 Dose: 25 mg Dextrose (D10) 250 mls @ 750 mls/hr IV Q15M PRN; Protocol PRN Reason: per Hypoglycemia Standing Ord. Insulin Human Lispro (Insulin Lispro 100 Unit/Ml 3 Ml Vial) 0 unit SUBCUT QIDACHS [facility]; Protocol Last Admin: 12/03/23 12:29 Dose: Not Given Magnesium Hydroxide (Milk Of Magnesia 30 Ml Oral.Susp) 30 ml PO DAILY PRN PRN Reason: Constipation Melatonin (Melatonin 3 Mg Tablet) 6 mg PO BEDTIME PRN PRN Reason: Sleep Last Admin: 12/02/23 22:27 Dose: 6 mg Metformin HCl (Metformin Hcl Er 500 Mg Tab.Er.24h) 500 mg PO BID [facility] Mirtazapine (Mirtazapine 30 Mg Tablet) 30 mg PO BEDTIME [facility] Last Admin: 12/02/23 20:24 Dose: 30 mg Nystatin (Nystatin Powder 15 Gm Bottle) 1 appl TOPICAL BID [facility]; Protocol Trazodone HCl (Trazodone Hcl 50 Mg Tablet) 50 mg PO BEDTIME MRX1 PRN PRN Reason: Insomnia Last Admin: 12/02/23 22:27 Dose: 50 mg Trazodone HCl (Trazodone Hcl 50 Mg Tablet) 50 mg PO BEDTIME MRX1 PRN PRN Reason: Insomnia Venlafaxine HCl (Venlafaxine Hcl Er 75 Mg Cap.Er.24h) 75 mg PO DAILY [facility] Last Admin: 12/03/23 08:27 Dose: 75 mg Allergies Allergies Allergy/AdvReac Type Severity Reaction Status Date / Time Sulfa (Sulfonamide Allergy Unknown Verified 11/21/23 13:58 Antibiotics) Assessment & Plan Assessment & Plan (1) Mood disorder: Status: Acute Code(s): F39 - Unspecified mood [affective] disorder (2) Dementia: Status: Acute Code(s): F03.90 - Unspecified dementia, unspecified severity, without behavioral disturbance, psychotic disturbance, mood disturbance, and anxiety (3) Non-insulin dependent type 2 diabetes mellitus: Status: Acute Code(s): E11.9 - Type 2 diabetes mellitus without complications (4) Hypertension: Status: Acute Code(s): I10 - Essential (primary) hypertension Plan The patient is an elderly female with a past history of dementia and other medical comorbidities who was admitted into the hospital for exacerbation of disorganization. While she was here, she became hypotensive and she needed to be seen and treated by the medical team. After being medically stable she was sent back to the unit. Plan 1. Continue with same treatment. 2. Continue with medical recommendations. 3. Family meeting for today to discuss discharge planning. 4. Continue the same level of observation 5. Discontinue Seroquel and starts Abilify 5 mg p.o. q.h.s.. 6. Start Klonopin 0.25 p.o. t.i.d. standing on December 01. Reason for continued inpatient stay Substantial Risk for: inability to function, rapid decompensation and med/psych decompensation Time Spent With Patient Time: Total time managing care of this patient today ___20_ minutes.
[2023-12-03 16:47] LABS: Glucose, Whole Blood 116 mg/dL (60-115)
[2023-12-03 19:46] VITALS: BP 128/60; PULSE 87; TEMP 36.6; O2SAT 97
[2023-12-03] MEDS: ARIPiprazole 5 MG TABLET PO (19:48)
[2023-12-03] MEDS: Atorvastatin Calcium 20 MG TABLET PO (19:49)
[2023-12-03] MEDS: metFORMIN HCl ER 500 MG TAB.ER.24H PO (19:49)
[2023-12-03] MEDS: Mirtazapine 30 MG TABLET PO (19:54)
[2023-12-03 20:14] LABS: Glucose, Whole Blood 142 mg/dL (60-115)
[2023-12-04] MEDS: Melatonin 3 MG TABLET 6 MG PO ×2 (02:30→20:30)
[2023-12-04] MEDS: clonazePAM 0.5 MG TABLET PO (02:30)
[2023-12-04] MEDS: traZODone HCL 50 MG TABLET PO ×2 (02:31→20:30)
[2023-12-04] MEDS: hydrOXYzine HCL 25 MG TABLET PO (02:31)
[2023-12-04 06:57] LABS: Glucose, Whole Blood 103 mg/dL (60-115)
[2023-12-04 07:55] VITALS: BP 116/80; PULSE 79; RESP 18; TEMP 36.8; O2SAT 98
[2023-12-04] MEDS: metFORMIN HCl ER 500 MG TAB.ER.24H PO ×2 (08:00→20:30)
[2023-12-04] MEDS: Venlafaxine HCl ER 75 MG CAP.ER.24H PO (08:01)
[2023-12-04] MEDS: Nystatin Powder 15 GM BOTTLE 1 APPL TOPICAL ×2 (08:01→21:01)
[2023-12-04 13:11] LABS: Creatinine Clr Calc Pharmacy 62.2; Estimated Glomerular Filt Rate > 60
--- NOTE | 2023-12-04 14:34 | P.PNPSI_ITS ---
Subjective Subjective Date of Service: 12/04/23 Reason For Visit: mental health crisis Subjective Notes: Conditional Voluntary Healthcare Proxy: Yes Interim History: The nursing staff reported the patient looks better she had been pacing in the hallway pleasant cooperative less anxious. She looks more relaxed since we started Klonopin 0.5 t.i.d. and a low dose of Abilify at night. On interview the patient is pleasantly confused easily redirectable. Mental Status Exam Mental Status Exam Patient Appearance: Appropriate Patient Orientation: Person Level of Consciousness: Awake Patient Behavior: Guarded and Passive Mood Description: Withdrawn Affect Description: Constricted Patient Cognition Impaired: Yes Ability to Follow Directions: Good Speech Pattern: Clear Hallucinations: None Delusions: Ideas of Reference Thought Process: Distracted and Slowed Thinking Thought Content: positive for [place], positive for Poverty of Content and positive for Thought Blocking Judgement: Poor Diagnostics Vital Signs (24Hr): Vital Signs - 24 hr 12/03/23 19:46 12/04/23 07:55 Temperature 97.9 F 98.2 F Pulse Rate 87 79 Respiratory Rate 18 Blood Pressure 128/60 116/80 Pulse Oximetry 97 98 Oxygen Delivery Method Room Air Room Air BMI result Body Mass Index 30.4 Labs 12/04/23 12:18 Labs: Laboratory Results - last 48 hr 12/02/23 12/02/23 12/03/23 16:20 20:22 06:33 Creatinine Estim Creat Clear Calc Estimated GFR POC Glucose 127 H 125 H 106 12/03/23 12/03/23 12/03/23 11:19 16:41 19:57 Creatinine Estim Creat Clear Calc Estimated GFR POC Glucose 137 H 116 H 142 H 12/04/23 12/04/23 06:37 12:18 Creatinine 0.83 Estim Creat Clear Calc 62.2 Estimated GFR > 60 POC Glucose 103 Medications Medications Current Medications Acetaminophen (Acetaminophen 325 Mg Tablet) 650 mg PO Q6H PRN PRN Reason: Headache/Pain Mild Scale (1-3) Al Hydroxide/Mg Hydroxide (Magnesium Hydrox/Alum Hydrox 30 Ml Oral.Susp) 30 ml PO Q6H PRN PRN Reason: Heartburn/Nausea Aripiprazole (Aripiprazole 5 Mg Tablet) 5 mg PO BEDTIME SARAH Last Admin: 12/03/23 19:48 Dose: 5 mg Atorvastatin Calcium (Atorvastatin Calcium 20 Mg Tablet) 20 mg PO BEDTIME SARAH Last Admin: 12/03/23 19:49 Dose: 20 mg Calcium Carbonate (Calcium Carbonate 750 Mg Tab.Chew) 300 mg PO Q4H PRN PRN Reason: Heartburn Clonazepam (Clonazepam 0.5 Mg Tablet) 0.5 mg PO BID PRN PRN Reason: agitation Last Admin: 12/04/23 02:30 Dose: 0.5 mg Clonazepam (Clonazepam 0.125 Mg Tab.Rapdis) 0.25 mg PO TID [facility] Last Admin: 12/04/23 14:33 Dose: 0.25 mg Hydroxyzine HCl (Hydroxyzine Hcl 25 Mg Tablet) 25 mg PO Q6H PRN PRN Reason: Anxiety Last Admin: 12/04/23 02:31 Dose: 25 mg Magnesium Hydroxide (Milk Of Magnesia 30 Ml Oral.Susp) 30 ml PO DAILY PRN PRN Reason: Constipation Melatonin (Melatonin 3 Mg Tablet) 6 mg PO BEDTIME PRN PRN Reason: Sleep Last Admin: 12/04/23 02:30 Dose: 6 mg Metformin HCl (Metformin Hcl Er 500 Mg Tab.Er.24h) 500 mg PO BID [facility] Last Admin: 12/04/23 08:00 Dose: 500 mg Mirtazapine (Mirtazapine 30 Mg Tablet) 30 mg PO BEDTIME [facility] Last Admin: 12/03/23 19:54 Dose: 30 mg Nystatin (Nystatin Powder 15 Gm Bottle) 1 appl TOPICAL BID [facility]; Protocol Last Admin: 12/04/23 08:01 Dose: 1 appl Trazodone HCl (Trazodone Hcl 50 Mg Tablet) 50 mg PO BEDTIME MRX1 PRN PRN Reason: Insomnia Last Admin: 12/04/23 02:31 Dose: 50 mg Trazodone HCl (Trazodone Hcl 50 Mg Tablet) 50 mg PO BEDTIME MRX1 PRN PRN Reason: Insomnia Venlafaxine HCl (Venlafaxine Hcl Er 75 Mg Cap.Er.24h) 75 mg PO DAILY [facility] Last Admin: 12/04/23 08:01 Dose: 75 mg Allergies Allergies Allergy/AdvReac Type Severity Reaction Status Date / Time Sulfa (Sulfonamide Allergy Unknown Verified 11/21/23 13:58 Antibiotics) Assessment & Plan Assessment & Plan (1) Mood disorder: Status: Acute Code(s): F39 - Unspecified mood [affective] disorder (2) Dementia: Status: Acute Code(s): F03.90 - Unspecified dementia, unspecified severity, without behavioral disturbance, psychotic disturbance, mood disturbance, and anxiety (3) Non-insulin dependent type 2 diabetes mellitus: Status: Acute Code(s): E11.9 - Type 2 diabetes mellitus without complications (4) Hypertension: Status: Acute Code(s): I10 - Essential (primary) hypertension Plan The patient is an elderly female with a past history of dementia and other medical comorbidities who was admitted into the hospital for exacerbation of disorganization. While she was here, she became hypotensive and she needed to be seen and treated by the medical team. After being medically stable she was sent back to the unit. Plan 1. Continue with same treatment. 2. Continue with medical recommendations. 3. Family meeting for today to discuss discharge planning. 4. Continue the same level of observation 5. Discontinue Seroquel and starts Abilify 5 mg p.o. q.h.s.. 6. Start Klonopin 0.25 p.o. t.i.d. standing on December 01. Reason for continued inpatient stay Substantial Risk for: inability to function, rapid decompensation and med/psych decompensation Time Spent With Patient Time: Total time managing care of this patient today __20__ minutes.
[2023-12-04 20:00] VITALS: BP 120/69; PULSE 76; RESP 18; TEMP 36.7; O2SAT 97
[2023-12-04] MEDS: Mirtazapine 30 MG TABLET PO (20:30)
[2023-12-04] MEDS: Atorvastatin Calcium 20 MG TABLET PO (20:30)
[2023-12-04] MEDS: ARIPiprazole 5 MG TABLET PO (20:31)
--- NOTE | 2023-12-05 06:55 | HO.PSYCHPN ---
Subjective Subjective Date of Service: 12/05/23 Reason For Visit: mental health crisis Subjective Notes: Conditional Voluntary Interim History: The nursing staff reported the patient had been compliant with treatment, she remains in the unit visible, pacing pleasantly confused. Overall she looks better with Abilify and Klonopin. On interview the patient denies new symptoms, she was confused and tearful at times but easily redirectable. Mental Status Exam Mental Status Exam Patient Appearance: Appropriate Patient Orientation: Person Level of Consciousness: Awake Patient Behavior: Guarded and Passive Mood Description: Withdrawn Affect Description: Constricted Patient Cognition Impaired: Yes Ability to Follow Directions: Good Speech Pattern: Impoverished Hallucinations: None Delusions: Ideas of Reference Thought Process: Distracted and Slowed Thinking Thought Content: positive for [place] and positive for Poverty of Content Judgement: Poor Diagnostics Vital Signs (24Hr): Vital Signs - 24 hr 12/04/23 07:55 12/04/23 20:00 Temperature 98.2 F 98.1 F Pulse Rate 79 76 Respiratory Rate 18 18 Blood Pressure 116/80 120/69 Pulse Oximetry 98 97 Oxygen Delivery Method Room Air Room Air BMI result Body Mass Index 30.4 Labs 12/04/23 12:18 Labs: Laboratory Results - last 48 hr 12/03/23 12/03/23 12/03/23 11:19 16:41 19:57 Creatinine Estim Creat Clear Calc Estimated GFR POC Glucose 137 H 116 H 142 H 12/04/23 12/04/23 06:37 12:18 Creatinine 0.83 Estim Creat Clear Calc 62.2 Estimated GFR > 60 POC Glucose 103 Medications Medications Current Medications Acetaminophen (Acetaminophen 325 Mg Tablet) 650 mg PO Q6H PRN PRN Reason: Headache/Pain Mild Scale (1-3) Al Hydroxide/Mg Hydroxide (Magnesium Hydrox/Alum Hydrox 30 Ml Oral.Susp) 30 ml PO Q6H PRN PRN Reason: Heartburn/Nausea Aripiprazole (Aripiprazole 5 Mg Tablet) 5 mg PO BEDTIME SARAH Last Admin: 12/04/23 20:31 Dose: 5 mg Atorvastatin Calcium (Atorvastatin Calcium 20 Mg Tablet) 20 mg PO BEDTIME SARAH Last Admin: 12/04/23 20:30 Dose: 20 mg Calcium Carbonate (Calcium Carbonate 750 Mg Tab.Chew) 300 mg PO Q4H PRN PRN Reason: Heartburn Clonazepam (Clonazepam 0.5 Mg Tablet) 0.5 mg PO BID PRN PRN Reason: agitation Last Admin: 12/04/23 02:30 Dose: 0.5 mg Clonazepam (Clonazepam 0.125 Mg Tab.Rapdis) 0.25 mg PO TID SARAH Last Admin: 12/04/23 20:30 Dose: 0.25 mg Hydroxyzine HCl (Hydroxyzine Hcl 25 Mg Tablet) 25 mg PO Q6H PRN PRN Reason: Anxiety Last Admin: 12/04/23 02:31 Dose: 25 mg Magnesium Hydroxide (Milk Of Magnesia 30 Ml Oral.Susp) 30 ml PO DAILY PRN PRN Reason: Constipation Melatonin (Melatonin 3 Mg Tablet) 6 mg PO BEDTIME PRN PRN Reason: Sleep Last Admin: 12/04/23 20:30 Dose: 6 mg Metformin HCl (Metformin Hcl Er 500 Mg Tab.Er.24h) 500 mg PO BID SARAH Last Admin: 12/04/23 20:30 Dose: 500 mg Mirtazapine (Mirtazapine 30 Mg Tablet) 30 mg PO BEDTIME SARAH Last Admin: 12/04/23 20:30 Dose: 30 mg Nystatin (Nystatin Powder 15 Gm Bottle) 1 appl TOPICAL BID [facility]; Protocol Last Admin: 12/04/23 21:01 Dose: 1 appl Trazodone HCl (Trazodone Hcl 50 Mg Tablet) 50 mg PO BEDTIME MRX1 PRN PRN Reason: Insomnia Last Admin: 12/04/23 20:30 Dose: 50 mg Trazodone HCl (Trazodone Hcl 50 Mg Tablet) 50 mg PO BEDTIME MRX1 PRN PRN Reason: Insomnia Venlafaxine HCl (Venlafaxine Hcl Er 75 Mg Cap.Er.24h) 75 mg PO DAILY [facility] Last Admin: 12/04/23 08:01 Dose: 75 mg Allergies Allergies Allergy/AdvReac Type Severity Reaction Status Date / Time Sulfa (Sulfonamide Allergy Unknown Verified 11/21/23 13:58 Antibiotics) Assessment & Plan Assessment & Plan (1) Mood disorder: Status: Acute Code(s): F39 - Unspecified mood [affective] disorder (2) Dementia: Status: Acute Code(s): F03.90 - Unspecified dementia, unspecified severity, without behavioral disturbance, psychotic disturbance, mood disturbance, and anxiety (3) Non-insulin dependent type 2 diabetes mellitus: Status: Acute Code(s): E11.9 - Type 2 diabetes mellitus without complications (4) Hypertension: Status: Acute Code(s): I10 - Essential (primary) hypertension Plan The patient is an elderly female with a past history of dementia and other medical comorbidities who was admitted into the hospital for exacerbation of disorganization. While she was here, she became hypotensive and she needed to be seen and treated by the medical team. After being medically stable she was sent back to the unit. Plan 1. Continue with same treatment. 2. Continue with medical recommendations. 3. Family meeting for today to discuss discharge planning. 4. Continue the same level of observation 5. Discontinue Seroquel and starts Abilify 5 mg p.o. q.h.s.. 6. Start Klonopin 0.25 p.o. t.i.d. standing on December 01. Informed Consent: does not understand Reason for continued inpatient stay Substantial Risk for: inability to function, rapid decompensation and med/psych decompensation Time Spent With Patient Time: Total time managing care of this patient today __20__ minutes.
[2023-12-05 09:24] VITALS: BP 141/61; PULSE 82; RESP 18; TEMP 36.6; O2SAT 98
[2023-12-05] MEDS: metFORMIN HCl ER 500 MG TAB.ER.24H PO ×2 (09:43→19:36)
[2023-12-05] MEDS: Venlafaxine HCl ER 75 MG CAP.ER.24H PO (09:43)
[2023-12-05] MEDS: Nystatin Powder 15 GM BOTTLE 1 APPL TOPICAL ×2 (09:43→19:37)
[2023-12-05] MEDS: clonazePAM 0.5 MG TABLET PO (15:57)
[2023-12-05 19:33] VITALS: BP 124/64; PULSE 104; RESP 16; TEMP 36.6; O2SAT 97
[2023-12-05] MEDS: ARIPiprazole 5 MG TABLET PO (19:36)
[2023-12-05] MEDS: Melatonin 3 MG TABLET 6 MG PO (19:36)
[2023-12-05] MEDS: Atorvastatin Calcium 20 MG TABLET PO (19:36)
[2023-12-05] MEDS: Mirtazapine 30 MG TABLET PO (19:37)
[2023-12-05] MEDS: traZODone HCL 50 MG TABLET PO (19:37)
--- NOTE | 2023-12-06 06:45 | HO.PSYCHPN ---
Subjective Subjective Date of Service: 12/06/23 Reason For Visit: mental health crisis Subjective Notes: Conditional Voluntary Interim History: The nursing staff reported the patient had been tearful, she looks more cleared on poor. She was seen in the common areas pacing in the hallways. On interview the patient looks confused but easily redirectable. Yesterday the nursing staff reported that the patient can not swallow pills and she had been on Effexor XR on metformin ER so we are changing now to immediate release presentations of these medications.. Mental Status Exam Mental Status Exam Patient Appearance: Appropriate Patient Orientation: Person Level of Consciousness: Awake Patient Behavior: Guarded and Passive Mood Description: Withdrawn Affect Description: Constricted Patient Cognition Impaired: Yes Ability to Follow Directions: Fair Speech Pattern: Impoverished Hallucinations: None Delusions: Not Present Thought Process: Distracted and Slowed Thinking Thought Content: positive for [place] and positive for Poverty of Content Judgement: Poor Diagnostics Vital Signs (24Hr): Vital Signs - 24 hr 12/05/23 09:24 12/05/23 19:33 Temperature 97.8 F 97.8 F Pulse Rate 82 104 H Respiratory Rate 18 16 Blood Pressure 141/61 H 124/64 Pulse Oximetry 98 97 Oxygen Delivery Method Room Air Room Air BMI result Body Mass Index 30.4 Labs 12/04/23 12:18 Labs: Laboratory Results - last 48 hr 12/04/23 12/04/23 06:37 12:18 Creatinine 0.83 Estim Creat Clear Calc 62.2 Estimated GFR > 60 POC Glucose 103 Medications Medications Current Medications Acetaminophen (Acetaminophen 325 Mg Tablet) 650 mg PO Q6H PRN PRN Reason: Headache/Pain Mild Scale (1-3) Al Hydroxide/Mg Hydroxide (Magnesium Hydrox/Alum Hydrox 30 Ml Oral.Susp) 30 ml PO Q6H PRN PRN Reason: Heartburn/Nausea Aripiprazole (Aripiprazole 5 Mg Tablet) 5 mg PO BEDTIME SARAH Last Admin: 12/05/23 19:36 Dose: 5 mg Atorvastatin Calcium (Atorvastatin Calcium 20 Mg Tablet) 20 mg PO BEDTIME SARAH Last Admin: 12/05/23 19:36 Dose: 20 mg Calcium Carbonate (Calcium Carbonate 750 Mg Tab.Chew) 300 mg PO Q4H PRN PRN Reason: Heartburn Clonazepam (Clonazepam 0.5 Mg Tablet) 0.5 mg PO BID PRN PRN Reason: agitation Last Admin: 12/05/23 15:57 Dose: 0.5 mg Clonazepam (Clonazepam 0.125 Mg Tab.Rapdis) 0.25 mg PO TID SARAH Last Admin: 12/05/23 19:36 Dose: 0.25 mg Hydroxyzine HCl (Hydroxyzine Hcl 25 Mg Tablet) 25 mg PO Q6H PRN PRN Reason: Anxiety Last Admin: 12/04/23 02:31 Dose: 25 mg Magnesium Hydroxide (Milk Of Magnesia 30 Ml Oral.Susp) 30 ml PO DAILY PRN PRN Reason: Constipation Melatonin (Melatonin 3 Mg Tablet) 6 mg PO BEDTIME PRN PRN Reason: Sleep Last Admin: 12/05/23 19:36 Dose: 6 mg Metformin HCl (Metformin Hcl Er 500 Mg Tab.Er.24h) 500 mg PO BID SARAH Last Admin: 12/05/23 19:36 Dose: 500 mg Mirtazapine (Mirtazapine 30 Mg Tablet) 30 mg PO BEDTIME SARAH Last Admin: 12/05/23 19:37 Dose: 30 mg Nystatin (Nystatin Powder 15 Gm Bottle) 1 appl TOPICAL BID ON LICENSE OF [facility]; Protocol Last Admin: 12/05/23 19:37 Dose: 1 appl Trazodone HCl (Trazodone Hcl 50 Mg Tablet) 50 mg PO BEDTIME MRX1 PRN PRN Reason: Insomnia Last Admin: 12/05/23 19:37 Dose: 50 mg Trazodone HCl (Trazodone Hcl 50 Mg Tablet) 50 mg PO BEDTIME MRX1 PRN PRN Reason: Insomnia Venlafaxine HCl (Venlafaxine Hcl Er 75 Mg Cap.Er.24h) 75 mg PO DAILY ON LICENSE OF [facility] Last Admin: 12/05/23 09:43 Dose: 75 mg Allergies Allergies Allergy/AdvReac Type Severity Reaction Status Date / Time Sulfa (Sulfonamide Allergy Unknown Verified 11/21/23 13:58 Antibiotics) Assessment & Plan Assessment & Plan (1) Mood disorder: Status: Acute Code(s): F39 - Unspecified mood [affective] disorder (2) Dementia: Status: Acute Code(s): F03.90 - Unspecified dementia, unspecified severity, without behavioral disturbance, psychotic disturbance, mood disturbance, and anxiety (3) Non-insulin dependent type 2 diabetes mellitus: Status: Acute Code(s): E11.9 - Type 2 diabetes mellitus without complications (4) Hypertension: Status: Acute Code(s): I10 - Essential (primary) hypertension Plan The patient is an elderly female with a past history of dementia and other medical comorbidities who was admitted into the hospital for exacerbation of disorganization. While she was here, she became hypotensive and she needed to be seen and treated by the medical team. After being medically stable she was sent back to the unit. Plan 1. Continue with same treatment. 2. Continue with medical recommendations. 3. Family meeting to discuss discharge planning. During that family meeting it was clear that the patient is severely impaired and the family was on agreement to change Seroquel to Abilify and start a low dose of benzodiazepines, since Klonopin has not disinhibited in the past the patient. 4. Continue the same level of observation, one-to-one for safety 5. Discontinue Seroquel and starts Abilify 5 mg p.o. q.h.s.. 6. Start Klonopin 0.25 p.o. t.i.d. standing on December 01. 7. December 05 we change Effexor to immediate release 25 b.i.d. and metformin immediate release 500 since the patient takes her medications crushed. Reason for continued inpatient stay Substantial Risk for: inability to function, rapid decompensation and med/psych decompensation Time Spent With Patient Time: Total time managing care of this patient today __20__ minutes.
[2023-12-06 08:29] VITALS: BP 110/59; PULSE 75; RESP 18; TEMP 36; O2SAT 97
[2023-12-06] MEDS: Venlafaxine HCL 25 MG TABLET PO ×2 (08:35→15:28)
[2023-12-06] MEDS: Nystatin Powder 15 GM BOTTLE 1 APPL TOPICAL ×2 (08:35→21:20)
[2023-12-06] MEDS: metFORMIN HCl 500 MG TABLET PO ×2 (08:36→16:29)
[2023-12-06 19:46] VITALS: BP 132/78; PULSE 84; RESP 18; TEMP 36.2; O2SAT 98
[2023-12-06] MEDS: hydrOXYzine HCL 25 MG TABLET PO (20:08)
[2023-12-06] MEDS: traZODone HCL 50 MG TABLET PO (20:08)
[2023-12-06] MEDS: Atorvastatin Calcium 20 MG TABLET PO (20:08)
[2023-12-06] MEDS: Mirtazapine 30 MG TABLET PO (20:08)
[2023-12-06] MEDS: ARIPiprazole 5 MG TABLET 7.5 MG PO (20:08)
[2023-12-06] MEDS: Melatonin 3 MG TABLET 6 MG PO (20:08)
[2023-12-07 07:56] VITALS: BP 125/70; PULSE 99; RESP 18; TEMP 36.6; O2SAT 98
[2023-12-07] MEDS: Nystatin Powder 15 GM BOTTLE 1 APPL TOPICAL (09:14)
[2023-12-07] MEDS: Venlafaxine HCL 25 MG TABLET PO ×2 (09:14→14:36)
[2023-12-07] MEDS: metFORMIN HCl 500 MG TABLET PO ×2 (09:14→16:39)
--- NOTE | 2023-12-07 12:22 | HO.PSYCHPN ---
Subjective Subjective Date of Service: 12/07/23 Reason For Visit: mental health crisis Subjective Notes: Conditional Voluntary Interim History: The nursing staff reported the patient had poor appetite today but she had been eating fairly well in the last days. The aids social worker reported that her family wanted to talk with us today and I explained to the family that she is doing much better with Steffany. On interview the patient is pleasantly confused no changes in his mental status. Mental Status Exam Mental Status Exam Patient Appearance: Well Grooomed and Appropriate Patient Orientation: Person and Situation Level of Consciousness: Alert Patient Behavior: Appropriate Affect Description: Labile Patient Cognition Impaired: Yes Ability to Follow Directions: Good Speech Pattern: Clear Hallucinations: None Delusions: Not Present Thought Process: Linear Thought Content: positive for [place] and positive for Poverty of Content Judgement: Fair Diagnostics Vital Signs (24Hr): Vital Signs - 24 hr 12/06/23 19:46 12/07/23 07:56 Temperature 97.2 F 97.9 F Pulse Rate 84 99 Respiratory Rate 18 18 Blood Pressure 132/78 125/70 Pulse Oximetry 98 98 Oxygen Delivery Method Room Air Room Air BMI result Body Mass Index 30.4 Labs 12/04/23 12:18 Medications Medications Current Medications Acetaminophen (Acetaminophen 325 Mg Tablet) 650 mg PO Q6H PRN PRN Reason: Headache/Pain Mild Scale (1-3) Al Hydroxide/Mg Hydroxide (Magnesium Hydrox/Alum Hydrox 30 Ml Oral.Susp) 30 ml PO Q6H PRN PRN Reason: Heartburn/Nausea Aripiprazole (Aripiprazole 5 Mg Tablet) 7.5 mg PO BEDTIME SARAH Last Admin: 12/06/23 20:08 Dose: 7.5 mg Atorvastatin Calcium (Atorvastatin Calcium 20 Mg Tablet) 20 mg PO BEDTIME SARAH Last Admin: 12/06/23 20:08 Dose: 20 mg Calcium Carbonate (Calcium Carbonate 750 Mg Tab.Chew) 300 mg PO Q4H PRN PRN Reason: Heartburn Clonazepam (Clonazepam 0.5 Mg Tablet) 0.5 mg PO BID PRN PRN Reason: agitation Last Admin: 12/05/23 15:57 Dose: 0.5 mg Clonazepam (Clonazepam 0.125 Mg Tab.Rapdis) 0.25 mg PO TID SARAH Last Admin: 12/07/23 09:14 Dose: 0.25 mg Hydroxyzine HCl (Hydroxyzine Hcl 25 Mg Tablet) 25 mg PO Q6H PRN PRN Reason: Anxiety Last Admin: 12/06/23 20:08 Dose: 25 mg Magnesium Hydroxide (Milk Of Magnesia 30 Ml Oral.Susp) 30 ml PO DAILY PRN PRN Reason: Constipation Melatonin (Melatonin 3 Mg Tablet) 6 mg PO BEDTIME PRN PRN Reason: Sleep Last Admin: 12/06/23 20:08 Dose: 6 mg Metformin HCl (Metformin Hcl 500 Mg Tablet) 500 mg PO BIDWM [facility] Last Admin: 12/07/23 09:14 Dose: 500 mg Mirtazapine (Mirtazapine 30 Mg Tablet) 30 mg PO BEDTIME SARAH Last Admin: 12/06/23 20:08 Dose: 30 mg Nystatin (Nystatin Powder 15 Gm Bottle) 1 appl TOPICAL BID [facility]; Protocol Last Admin: 12/07/23 09:14 Dose: 1 appl Trazodone HCl (Trazodone Hcl 50 Mg Tablet) 50 mg PO BEDTIME MRX1 PRN PRN Reason: Insomnia Last Admin: 12/06/23 20:08 Dose: 50 mg Venlafaxine HCl (Venlafaxine Hcl 25 Mg Tablet) 25 mg PO BID@0800,1500 [facility] Last Admin: 12/07/23 09:14 Dose: 25 mg Allergies Allergies Allergy/AdvReac Type Severity Reaction Status Date / Time Sulfa (Sulfonamide Allergy Unknown Verified 11/21/23 13:58 Antibiotics) Assessment & Plan Assessment & Plan (1) Mood disorder: Status: Acute Code(s): F39 - Unspecified mood [affective] disorder (2) Dementia: Status: Acute Code(s): F03.90 - Unspecified dementia, unspecified severity, without behavioral disturbance, psychotic disturbance, mood disturbance, and anxiety (3) Non-insulin dependent type 2 diabetes mellitus: Status: Acute Code(s): E11.9 - Type 2 diabetes mellitus without complications (4) Hypertension: Status: Acute Code(s): I10 - Essential (primary) hypertension Plan The patient is an elderly female with a past history of dementia and other medical comorbidities who was admitted into the hospital for exacerbation of disorganization. While she was here, she became hypotensive and she needed to be seen and treated by the medical team. After being medically stable she was sent back to the unit. Plan 1. Continue with same treatment. 2. Continue with medical recommendations. 3. Family meeting to discuss discharge planning. During that family meeting it was clear that the patient is severely impaired and the family was on agreement to change Seroquel to Abilify and start a low dose of benzodiazepines, since Klonopin has not disinhibited in the past the patient. 4. Continue the same level of observation, one-to-one for safety 5. Discontinue Seroquel and starts Abilify 5 mg p.o. q.h.s.. 6. Start Klonopin 0.25 p.o. t.i.d. standing on December 01. 7. December 05 we change Effexor to immediate release 25 b.i.d. and metformin immediate release 500 since the patient takes her medications crushed. Reason for continued inpatient stay Substantial Risk for: inability to function, rapid decompensation and med/psych decompensation Time Spent With Patient Time: Total time managing care of this patient today __20__ minutes.
[2023-12-07] MEDS: hydrOXYzine HCL 25 MG TABLET PO (19:58)
[2023-12-07] MEDS: ARIPiprazole 5 MG TABLET 7.5 MG PO (19:58)
[2023-12-07] MEDS: clonazePAM 0.5 MG TABLET PO (19:58)
[2023-12-07] MEDS: Mirtazapine 30 MG TABLET PO (19:58)
[2023-12-07] MEDS: Atorvastatin Calcium 20 MG TABLET PO (19:58)
[2023-12-07] MEDS: traZODone HCL 50 MG TABLET PO (19:58)
[2023-12-07] MEDS: Melatonin 3 MG TABLET 6 MG PO (19:58)
[2023-12-07 20:00] VITALS: BP 130/74; PULSE 74; RESP 18; TEMP 36.6; O2SAT 95
[2023-12-08 08:15] VITALS: BP 131/60; PULSE 90; RESP 18; TEMP 36.8; O2SAT 97
[2023-12-08] MEDS: Venlafaxine HCL 25 MG TABLET PO ×2 (08:36→14:39)
[2023-12-08] MEDS: metFORMIN HCl 500 MG TABLET PO ×2 (08:36→16:26)
[2023-12-08] MEDS: Nystatin Powder 15 GM BOTTLE 1 APPL TOPICAL (08:46)
[2023-12-08 20:00] VITALS: BP 138/77; PULSE 92; RESP 18; TEMP 36.4; O2SAT 98
[2023-12-08] MEDS: ARIPiprazole 5 MG TABLET 7.5 MG PO (20:53)
[2023-12-08] MEDS: Mirtazapine 30 MG TABLET PO (20:53)
[2023-12-08] MEDS: Atorvastatin Calcium 20 MG TABLET PO (20:53)
[2023-12-08] MEDS: hydrOXYzine HCL 25 MG TABLET PO (20:53)
[2023-12-08] MEDS: traZODone HCL 50 MG TABLET PO (20:53)
[2023-12-09] MEDS: clonazePAM 0.5 MG TABLET PO (03:24)
[2023-12-09] MEDS: hydrOXYzine HCL 25 MG TABLET PO ×2 (03:24→20:00)
[2023-12-09 08:00] VITALS: BP 143/80; PULSE 95; RESP 16; TEMP 36.6; O2SAT 95
[2023-12-09] MEDS: metFORMIN HCl 500 MG TABLET PO ×2 (08:14→17:03)
[2023-12-09] MEDS: Venlafaxine HCL 25 MG TABLET PO ×2 (08:14→14:52)
[2023-12-09] MEDS: Nystatin Powder 15 GM BOTTLE 1 APPL TOPICAL (08:37)
--- NOTE | 2023-12-09 11:30 | P.PNPSI_ITS ---
Subjective Subjective Date of Service: 12/08/23 Reason For Visit: mental health crisis Subjective Notes: Conditional Voluntary Healthcare Proxy: Yes Interim History: Pt slept through the night. She was ambulating around the unit. severe aphasia. No behavioral concerns. Pt not oriented to place, month, situation or year. She is taking medications crushed. Diagnostics Vital Signs (24Hr): Vital Signs - 24 hr 12/08/23 20:00 12/09/23 08:00 Temperature 97.5 F 97.9 F Pulse Rate 92 95 Respiratory Rate 18 16 Blood Pressure 138/77 143/80 H Pulse Oximetry 98 95 Oxygen Delivery Method Room Air Room Air BMI result Body Mass Index 30.4 Labs 12/04/23 12:18 Medications Medications Current Medications Acetaminophen (Acetaminophen 325 Mg Tablet) 650 mg PO Q6H PRN PRN Reason: Headache/Pain Mild Scale (1-3) Al Hydroxide/Mg Hydroxide (Magnesium Hydrox/Alum Hydrox 30 Ml Oral.Susp) 30 ml PO Q6H PRN PRN Reason: Heartburn/Nausea Aripiprazole (Aripiprazole 5 Mg Tablet) 7.5 mg PO BEDTIME SARAH Last Admin: 12/08/23 20:53 Dose: 7.5 mg Atorvastatin Calcium (Atorvastatin Calcium 20 Mg Tablet) 20 mg PO BEDTIME SARAH Last Admin: 12/08/23 20:53 Dose: 20 mg Calcium Carbonate (Calcium Carbonate 750 Mg Tab.Chew) 300 mg PO Q4H PRN PRN Reason: Heartburn Clonazepam (Clonazepam 0.5 Mg Tablet) 0.5 mg PO BID PRN PRN Reason: agitation Last Admin: 12/09/23 03:24 Dose: 0.5 mg Hydroxyzine HCl (Hydroxyzine Hcl 25 Mg Tablet) 25 mg PO Q6H PRN PRN Reason: Anxiety Last Admin: 12/09/23 03:24 Dose: 25 mg Magnesium Hydroxide (Milk Of Magnesia 30 Ml Oral.Susp) 30 ml PO DAILY PRN PRN Reason: Constipation Melatonin (Melatonin 3 Mg Tablet) 6 mg PO BEDTIME PRN PRN Reason: Sleep Last Admin: 12/07/23 19:58 Dose: 6 mg Metformin HCl (Metformin Hcl 500 Mg Tablet) 500 mg PO BIDWM SARAH Last Admin: 12/09/23 08:14 Dose: 500 mg Mirtazapine (Mirtazapine 30 Mg Tablet) 30 mg PO BEDTIME SARAH Last Admin: 12/08/23 20:53 Dose: 30 mg Nystatin (Nystatin Powder 15 Gm Bottle) 1 appl TOPICAL BID SARAH; Protocol Last Admin: 12/09/23 08:37 Dose: 1 appl Trazodone HCl (Trazodone Hcl 50 Mg Tablet) 50 mg PO BEDTIME MRX1 PRN PRN Reason: Insomnia Last Admin: 12/08/23 20:53 Dose: 50 mg Venlafaxine HCl (Venlafaxine Hcl 25 Mg Tablet) 25 mg PO BID@0800,1500 [facility] Last Admin: 12/09/23 08:14 Dose: 25 mg Allergies Allergies Allergy/AdvReac Type Severity Reaction Status Date / Time Sulfa (Sulfonamide Allergy Unknown Verified 11/21/23 13:58 Antibiotics) Assessment & Plan Assessment & Plan (1) Dementia: Status: Acute Code(s): F03.90 - Unspecified dementia, unspecified severity, without behavioral disturbance, psychotic disturbance, mood disturbance, and anxiety (2) Mood disorder: Status: Acute Code(s): F39 - Unspecified mood [affective] disorder (3) Non-insulin dependent type 2 diabetes mellitus: Status: Acute Code(s): E11.9 - Type 2 diabetes mellitus without complications (4) Hypertension: Status: Acute Code(s): I10 - Essential (primary) hypertension Plan The patient is an elderly female with a past history of dementia and other medical comorbidities who was admitted into the hospital for exacerbation of disorganization. While she was here, she became hypotensive and she needed to be seen and treated by the medical team. After being medically stable she was sent back to the unit. Plan 1. Continue with same treatment. 2. Continue with medical recommendations. 3. Family meeting to discuss discharge planning. During that family meeting it was clear that the patient is severely impaired and the family was on agreement to change Seroquel to Abilify and start a low dose of benzodiazepines, since Klonopin has not disinhibited in the past the patient. 4. Continue the same level of observation, one-to-one for safety 5. Discontinue Seroquel and starts Abilify 5 mg p.o. q.h.s.. 6. Start Klonopin 0.25 p.o. t.i.d. standing on December 01. 7. December 05 we change Effexor to immediate release 25 b.i.d. and metformin immediate release 500 since the patient takes her medications crushed. Reason for continued inpatient stay Substantial Risk for: inability to function Time Spent With Patient Time: Total time managing care of this patient today ____ minutes.
--- NOTE | 2023-12-09 11:43 | HO.PSYCHPN ---
Subjective Subjective Date of Service: 12/09/23 Reason For Visit: mental health crisis Subjective Notes: Conditional Voluntary Healthcare Proxy: Yes Interim History: Pt slept through the night. She was ambulating around the unit. severe aphasia. No behavioral concerns. Pt not oriented to place, month, situation or year. She is taking medications crushed. Review of Systems Review of Systems Yes Unobtainable due to mental status Mental Status Exam Mental Status Exam Patient Appearance: Well Grooomed and Appropriate Patient Orientation: Person and Situation Level of Consciousness: Alert Patient Behavior: Appropriate Mood Description: Withdrawn Affect Description: Labile Patient Cognition Impaired: Yes Ability to Follow Directions: Good Speech Pattern: Clear Diagnostics Vital Signs (24Hr): Vital Signs - 24 hr 12/08/23 20:00 12/09/23 08:00 Temperature 97.5 F 97.9 F Pulse Rate 92 95 Respiratory Rate 18 16 Blood Pressure 138/77 143/80 H Pulse Oximetry 98 95 Oxygen Delivery Method Room Air Room Air BMI result Body Mass Index 30.4 Labs 12/04/23 12:18 Medications Medications Current Medications Acetaminophen (Acetaminophen 325 Mg Tablet) 650 mg PO Q6H PRN PRN Reason: Headache/Pain Mild Scale (1-3) Al Hydroxide/Mg Hydroxide (Magnesium Hydrox/Alum Hydrox 30 Ml Oral.Susp) 30 ml PO Q6H PRN PRN Reason: Heartburn/Nausea Aripiprazole (Aripiprazole 5 Mg Tablet) 7.5 mg PO BEDTIME SARAH Last Admin: 12/08/23 20:53 Dose: 7.5 mg Atorvastatin Calcium (Atorvastatin Calcium 20 Mg Tablet) 20 mg PO BEDTIME SARAH Last Admin: 12/08/23 20:53 Dose: 20 mg Calcium Carbonate (Calcium Carbonate 750 Mg Tab.Chew) 300 mg PO Q4H PRN PRN Reason: Heartburn Clonazepam (Clonazepam 0.5 Mg Tablet) 0.5 mg PO BID PRN PRN Reason: agitation Last Admin: 12/09/23 03:24 Dose: 0.5 mg Hydroxyzine HCl (Hydroxyzine Hcl 25 Mg Tablet) 25 mg PO Q6H PRN PRN Reason: Anxiety Last Admin: 12/09/23 03:24 Dose: 25 mg Magnesium Hydroxide (Milk Of Magnesia 30 Ml Oral.Susp) 30 ml PO DAILY PRN PRN Reason: Constipation Melatonin (Melatonin 3 Mg Tablet) 6 mg PO BEDTIME PRN PRN Reason: Sleep Last Admin: 12/07/23 19:58 Dose: 6 mg Metformin HCl (Metformin Hcl 500 Mg Tablet) 500 mg PO BIDWM SARAH Last Admin: 12/09/23 08:14 Dose: 500 mg Mirtazapine (Mirtazapine 30 Mg Tablet) 30 mg PO BEDTIME SARAH Last Admin: 12/08/23 20:53 Dose: 30 mg Nystatin (Nystatin Powder 15 Gm Bottle) 1 appl TOPICAL BID SARAH; Protocol Last Admin: 12/09/23 08:37 Dose: 1 appl Trazodone HCl (Trazodone Hcl 50 Mg Tablet) 50 mg PO BEDTIME MRX1 PRN PRN Reason: Insomnia Last Admin: 12/08/23 20:53 Dose: 50 mg Venlafaxine HCl (Venlafaxine Hcl 25 Mg Tablet) 25 mg PO BID@0800,1500 [facility] Last Admin: 12/09/23 08:14 Dose: 25 mg Allergies Allergies Allergy/AdvReac Type Severity Reaction Status Date / Time Sulfa (Sulfonamide Allergy Unknown Verified 11/21/23 13:58 Antibiotics) Assessment & Plan Assessment & Plan (1) Mood disorder: Status: Acute Code(s): F39 - Unspecified mood [affective] disorder (2) Non-insulin dependent type 2 diabetes mellitus: Status: Acute Code(s): E11.9 - Type 2 diabetes mellitus without complications (3) Hypertension: Status: Acute Code(s): I10 - Essential (primary) hypertension (4) Major neurocognitive disorder: Status: Acute Code(s): F03.90 - Unspecified dementia, unspecified severity, without behavioral disturbance, psychotic disturbance, mood disturbance, and anxiety Plan The patient is an elderly female with a past history of dementia and other medical comorbidities who was admitted into the hospital for exacerbation of disorganization. While she was here, she became hypotensive and she needed to be seen and treated by the medical team. After being medically stable she was sent back to the unit. Plan 1. Continue with same treatment. 2. Continue with medical recommendations. 3. Family meeting to discuss discharge planning. During that family meeting it was clear that the patient is severely impaired and the family was on agreement to change Seroquel to Abilify and start a low dose of benzodiazepines, since Klonopin has not disinhibited in the past the patient. 4. Continue the same level of observation, one-to-one for safety 5. Discontinue Seroquel and starts Abilify 5 mg p.o. q.h.s.. 6. Start Klonopin 0.25 p.o. t.i.d. standing on December 01. 7. December 05 we change Effexor to immediate release 25 b.i.d. and metformin immediate release 500 since the patient takes her medications crushed. Reason for continued inpatient stay Substantial Risk for: inability to function Time Spent With Patient Time: Total time managing care of this patient today ____ minutes.
[2023-12-09] MEDS: ARIPiprazole 5 MG TABLET 7.5 MG PO (19:59)
[2023-12-09] MEDS: Melatonin 3 MG TABLET 6 MG PO (20:00)
[2023-12-09] MEDS: traZODone HCL 50 MG TABLET PO (20:00)
[2023-12-09] MEDS: Atorvastatin Calcium 20 MG TABLET PO (20:00)
[2023-12-09] MEDS: Mirtazapine 30 MG TABLET PO (20:00)
[2023-12-10] MEDS: Venlafaxine HCL 25 MG TABLET PO ×2 (08:33→14:32)
[2023-12-10] MEDS: metFORMIN HCl 500 MG TABLET PO ×2 (08:33→16:30)
[2023-12-10 13:28] VITALS: BMI 29.8
--- NOTE | 2023-12-10 18:16 | HO.PSYCHPN ---
Subjective Subjective Date of Service: 12/10/23 Reason For Visit: mental health crisis Interim History: Pt slept through the night. She was ambulating around the unit. severe aphasia. No behavioral concerns. Pt not oriented to place, month, situation or year. She is taking medications crushed. Review of Systems Review of Systems Yes Unobtainable due to mental status Mental Status Exam Mental Status Exam Patient Appearance: Well Grooomed Patient Orientation: Person Level of Consciousness: Alert Patient Behavior: Appropriate Affect Description: Calm Patient Cognition Impaired: Yes Ability to Follow Directions: Poor Speech Pattern: Aphasic Hallucinations: None Delusions: Not Present Judgement and Insight: impaired x 2. Diagnostics Vital Signs (24Hr): BMI result Body Mass Index 29.8 Labs 12/11/23 09:03 Medications Medications Current Medications Acetaminophen (Acetaminophen 325 Mg Tablet) 650 mg PO Q6H PRN PRN Reason: Headache/Pain Mild Scale (1-3) Al Hydroxide/Mg Hydroxide (Magnesium Hydrox/Alum Hydrox 30 Ml Oral.Susp) 30 ml PO Q6H PRN PRN Reason: Heartburn/Nausea Aripiprazole (Aripiprazole 5 Mg Tablet) 7.5 mg PO BEDTIME SARAH Last Admin: 12/09/23 19:59 Dose: 7.5 mg Atorvastatin Calcium (Atorvastatin Calcium 20 Mg Tablet) 20 mg PO BEDTIME SARAH Last Admin: 12/09/23 20:00 Dose: 20 mg Calcium Carbonate (Calcium Carbonate 750 Mg Tab.Chew) 300 mg PO Q4H PRN PRN Reason: Heartburn Clonazepam (Clonazepam 0.5 Mg Tablet) 0.5 mg PO BID PRN PRN Reason: agitation Last Admin: 12/09/23 03:24 Dose: 0.5 mg Hydroxyzine HCl (Hydroxyzine Hcl 25 Mg Tablet) 25 mg PO Q6H PRN PRN Reason: Anxiety Last Admin: 12/09/23 20:00 Dose: 25 mg Magnesium Hydroxide (Milk Of Magnesia 30 Ml Oral.Susp) 30 ml PO DAILY PRN PRN Reason: Constipation Melatonin (Melatonin 3 Mg Tablet) 6 mg PO BEDTIME PRN PRN Reason: Sleep Last Admin: 12/09/23 20:00 Dose: 6 mg Metformin HCl (Metformin Hcl 500 Mg Tablet) 500 mg PO BIDWM SARAH Last Admin: 12/10/23 16:30 Dose: 500 mg Mirtazapine (Mirtazapine 30 Mg Tablet) 30 mg PO BEDTIME [facility] Last Admin: 12/09/23 20:00 Dose: 30 mg Nystatin (Nystatin Powder 15 Gm Bottle) 1 appl TOPICAL BID [facility]; Protocol Last Admin: 12/10/23 08:34 Dose: Not Given Trazodone HCl (Trazodone Hcl 50 Mg Tablet) 50 mg PO BEDTIME MRX1 PRN PRN Reason: Insomnia Last Admin: 12/09/23 20:00 Dose: 50 mg Venlafaxine HCl (Venlafaxine Hcl 25 Mg Tablet) 25 mg PO BID@0800,1500 [facility] Last Admin: 12/10/23 14:32 Dose: 25 mg Allergies Allergies Allergy/AdvReac Type Severity Reaction Status Date / Time Sulfa (Sulfonamide Allergy Unknown Verified 11/21/23 13:58 Antibiotics) Assessment & Plan Assessment & Plan (1) Major neurocognitive disorder: Status: Acute Code(s): F03.90 - Unspecified dementia, unspecified severity, without behavioral disturbance, psychotic disturbance, mood disturbance, and anxiety (2) Non-insulin dependent type 2 diabetes mellitus: Status: Acute Code(s): E11.9 - Type 2 diabetes mellitus without complications (3) Hypertension: Status: Acute Code(s): I10 - Essential (primary) hypertension Plan The patient is an elderly female with a past history of dementia and other medical comorbidities who was admitted into the hospital for exacerbation of disorganization. While she was here, she became hypotensive and she needed to be seen and treated by the medical team. After being medically stable she was sent back to the unit. Plan 1. Continue with same treatment. 2. Continue with medical recommendations. 3. Family meeting to discuss discharge planning. During that family meeting it was clear that the patient is severely impaired and the family was on agreement to change Seroquel to Abilify and start a low dose of benzodiazepines, since Klonopin has not disinhibited in the past the patient. 4. Continue the same level of observation, one-to-one for safety 5. Discontinue Seroquel and starts Abilify 5 mg p.o. q.h.s.. 6. Start Klonopin 0.25 p.o. t.i.d. standing on December 01. 7. December 05 we change Effexor to immediate release 25 b.i.d. and metformin immediate release 500 since the patient takes her medications crushed. Reason for continued inpatient stay Substantial Risk for: inability to function Time Spent With Patient Time: Total time managing care of this patient today ____ minutes.
[2023-12-10 20:00] VITALS: BP 125/70; PULSE 92; RESP 16; TEMP 36.5; O2SAT 97
[2023-12-10] MEDS: Atorvastatin Calcium 20 MG TABLET PO (20:14)
[2023-12-10] MEDS: Mirtazapine 30 MG TABLET PO (20:14)
[2023-12-10] MEDS: ARIPiprazole 5 MG TABLET 7.5 MG PO (20:14)
[2023-12-10] MEDS: Nystatin Powder 15 GM BOTTLE 1 APPL TOPICAL (20:20)
[2023-12-10] MEDS: clonazePAM 0.5 MG TABLET PO (23:37)
[2023-12-11 09:22] LABS: Creatinine Clr Calc Pharmacy 58.1; Estimated Glomerular Filt Rate > 60
[2023-12-11 10:05] VITALS: BP 123/73; PULSE 92; RESP 18; TEMP 36.6; O2SAT 97
[2023-12-11] MEDS: Venlafaxine HCL 25 MG TABLET PO ×2 (10:13→16:03)
[2023-12-11] MEDS: metFORMIN HCl 500 MG TABLET PO ×2 (10:13→16:03)
[2023-12-11] MEDS: Nystatin Powder 15 GM BOTTLE 1 APPL TOPICAL (10:21)
--- NOTE | 2023-12-11 18:34 | HO.PSYCHPN ---
Subjective Subjective Date of Service: 12/11/23 Reason For Visit: mental health crisis Subjective Notes: Conditional Voluntary Interim History: Pt slept through the night. She was ambulating around the unit. severe aphasia. No behavioral concerns. Pt not oriented to place, month, situation or year. taking medications as prescribed. Review of Systems Review of Systems Yes Unobtainable due to mental status Mental Status Exam Mental Status Exam Patient Appearance: Well Grooomed Patient Orientation: Person Level of Consciousness: Alert Patient Behavior: Appropriate Mood Description: Withdrawn Affect Description: Calm Patient Cognition Impaired: Yes Ability to Follow Directions: Poor Speech Pattern: Aphasic Diagnostics Vital Signs (24Hr): Vital Signs - 24 hr 12/10/23 20:00 12/11/23 10:05 Temperature 97.7 F 97.8 F Pulse Rate 92 92 Respiratory Rate 16 18 Blood Pressure 125/70 123/73 Pulse Oximetry 97 97 Oxygen Delivery Method Room Air Room Air BMI result Body Mass Index 29.8 Labs 12/11/23 09:03 Labs: Laboratory Results - last 48 hr 12/11/23 09:03 Creatinine 0.88 Estim Creat Clear Calc 58.1 Estimated GFR > 60 Medications Medications Current Medications Acetaminophen (Acetaminophen 325 Mg Tablet) 650 mg PO Q6H PRN PRN Reason: Headache/Pain Mild Scale (1-3) Al Hydroxide/Mg Hydroxide (Magnesium Hydrox/Alum Hydrox 30 Ml Oral.Susp) 30 ml PO Q6H PRN PRN Reason: Heartburn/Nausea Aripiprazole (Aripiprazole 5 Mg Tablet) 7.5 mg PO BEDTIME SARAH Last Admin: 12/10/23 20:14 Dose: 7.5 mg Atorvastatin Calcium (Atorvastatin Calcium 20 Mg Tablet) 20 mg PO BEDTIME SARAH Last Admin: 12/10/23 20:14 Dose: 20 mg Calcium Carbonate (Calcium Carbonate 750 Mg Tab.Chew) 300 mg PO Q4H PRN PRN Reason: Heartburn Clonazepam (Clonazepam 0.5 Mg Tablet) 0.5 mg PO BID PRN PRN Reason: agitation Last Admin: 12/10/23 23:37 Dose: 0.5 mg Hydroxyzine HCl (Hydroxyzine Hcl 25 Mg Tablet) 25 mg PO Q6H PRN PRN Reason: Anxiety Last Admin: 12/09/23 20:00 Dose: 25 mg Magnesium Hydroxide (Milk Of Magnesia 30 Ml Oral.Susp) 30 ml PO DAILY PRN PRN Reason: Constipation Melatonin (Melatonin 3 Mg Tablet) 6 mg PO BEDTIME PRN PRN Reason: Sleep Last Admin: 12/09/23 20:00 Dose: 6 mg Metformin HCl (Metformin Hcl 500 Mg Tablet) 500 mg PO BIDWM SARAH Last Admin: 12/11/23 16:03 Dose: 500 mg Mirtazapine (Mirtazapine 30 Mg Tablet) 30 mg PO BEDTIME SARAH Last Admin: 12/10/23 20:14 Dose: 30 mg Nystatin (Nystatin Powder 15 Gm Bottle) 1 appl TOPICAL BID SARAH; Protocol Last Admin: 12/11/23 10:21 Dose: 1 appl Trazodone HCl (Trazodone Hcl 50 Mg Tablet) 50 mg PO BEDTIME MRX1 PRN PRN Reason: Insomnia Last Admin: 12/09/23 20:00 Dose: 50 mg Venlafaxine HCl (Venlafaxine Hcl 25 Mg Tablet) 25 mg PO BID@0800,1500 SARAH Last Admin: 12/11/23 16:03 Dose: 25 mg Allergies Allergies Allergy/AdvReac Type Severity Reaction Status Date / Time Sulfa (Sulfonamide Allergy Unknown Verified 11/21/23 13:58 Antibiotics) Assessment & Plan Assessment & Plan (1) Major neurocognitive disorder: Status: Acute Code(s): F03.90 - Unspecified dementia, unspecified severity, without behavioral disturbance, psychotic disturbance, mood disturbance, and anxiety (2) Non-insulin dependent type 2 diabetes mellitus: Status: Acute Code(s): E11.9 - Type 2 diabetes mellitus without complications (3) Hypertension: Status: Acute Code(s): I10 - Essential (primary) hypertension Plan The patient is an elderly female with a past history of dementia and other medical comorbidities who was admitted into the hospital for exacerbation of disorganization. While she was here, she became hypotensive and she needed to be seen and treated by the medical team. After being medically stable she was sent back to the unit. Plan 1. Continue with same treatment. 2. Continue with medical recommendations. 3. Family meeting to discuss discharge planning. During that family meeting it was clear that the patient is severely impaired and the family was on agreement to change Seroquel to Abilify and start a low dose of benzodiazepines, since Klonopin has not disinhibited in the past the patient. 4. Continue the same level of observation, one-to-one for safety 5. Discontinue Seroquel and starts Abilify 5 mg p.o. q.h.s.. 6. Start Klonopin 0.25 p.o. t.i.d. standing on December 01. 7. December 05 we change Effexor to immediate release 25 b.i.d. and metformin immediate release 500 since the patient takes her medications crushed. Reason for continued inpatient stay Substantial Risk for: inability to function Time Spent With Patient Time: Total time managing care of this patient today ____ minutes.
[2023-12-11 20:00] VITALS: BP 130/89; PULSE 106; RESP 16; TEMP 36.2; O2SAT 94
[2023-12-11] MEDS: Atorvastatin Calcium 20 MG TABLET PO (20:39)
[2023-12-11] MEDS: clonazePAM 0.5 MG TABLET PO (20:39)
[2023-12-11] MEDS: Mirtazapine 30 MG TABLET PO (20:39)
[2023-12-11] MEDS: ARIPiprazole 5 MG TABLET 7.5 MG PO (20:39)
[2023-12-12] MEDS: Venlafaxine HCL 25 MG TABLET PO ×2 (08:45→14:32)
[2023-12-12] MEDS: Nystatin Powder 15 GM BOTTLE 1 APPL TOPICAL ×2 (08:45→20:22)
[2023-12-12] MEDS: metFORMIN HCl 500 MG TABLET PO ×2 (08:45→17:02)
[2023-12-12 20:00] VITALS: BP 124/58; PULSE 74; RESP 18; TEMP 36.8; O2SAT 97
--- NOTE | 2023-12-12 20:12 | HO.PSYCHPN ---
Subjective Subjective Date of Service: 12/12/23 Reason For Visit: mental health crisis Interim History: Pt slept through the night. She was ambulating around the unit. severe aphasia. No behavioral concerns. Pt not oriented to place, month, situation or year. taking medications as prescribed. Review of Systems Review of Systems Yes Unobtainable due to mental status Mental Status Exam Mental Status Exam Patient Appearance: Well Grooomed Patient Orientation: Person Level of Consciousness: Alert Patient Behavior: Appropriate Mood Description: Withdrawn Affect Description: Calm Patient Cognition Impaired: Yes Ability to Follow Directions: Poor Speech Pattern: Aphasic Diagnostics Vital Signs (24Hr): BMI result Body Mass Index 29.8 Labs 12/11/23 09:03 Labs: Laboratory Results - last 48 hr 12/11/23 09:03 Creatinine 0.88 Estim Creat Clear Calc 58.1 Estimated GFR > 60 Medications Medications Current Medications Acetaminophen (Acetaminophen 325 Mg Tablet) 650 mg PO Q6H PRN PRN Reason: Headache/Pain Mild Scale (1-3) Al Hydroxide/Mg Hydroxide (Magnesium Hydrox/Alum Hydrox 30 Ml Oral.Susp) 30 ml PO Q6H PRN PRN Reason: Heartburn/Nausea Aripiprazole (Aripiprazole 5 Mg Tablet) 7.5 mg PO BEDTIME SARAH Last Admin: 12/11/23 20:39 Dose: 7.5 mg Atorvastatin Calcium (Atorvastatin Calcium 20 Mg Tablet) 20 mg PO BEDTIME SARAH Last Admin: 12/11/23 20:39 Dose: 20 mg Calcium Carbonate (Calcium Carbonate 750 Mg Tab.Chew) 300 mg PO Q4H PRN PRN Reason: Heartburn Clonazepam (Clonazepam 0.5 Mg Tablet) 0.5 mg PO BID PRN PRN Reason: agitation Last Admin: 12/11/23 20:39 Dose: 0.5 mg Hydroxyzine HCl (Hydroxyzine Hcl 25 Mg Tablet) 25 mg PO Q6H PRN PRN Reason: Anxiety Last Admin: 12/09/23 20:00 Dose: 25 mg Magnesium Hydroxide (Milk Of Magnesia 30 Ml Oral.Susp) 30 ml PO DAILY PRN PRN Reason: Constipation Melatonin (Melatonin 3 Mg Tablet) 6 mg PO BEDTIME PRN PRN Reason: Sleep Last Admin: 12/09/23 20:00 Dose: 6 mg Metformin HCl (Metformin Hcl 500 Mg Tablet) 500 mg PO BIDWM SARAH Last Admin: 12/12/23 17:02 Dose: 500 mg Mirtazapine (Mirtazapine 30 Mg Tablet) 30 mg PO BEDTIME SARAH Last Admin: 12/11/23 20:39 Dose: 30 mg Nystatin (Nystatin Powder 15 Gm Bottle) 1 appl TOPICAL BID SARAH; Protocol Last Admin: 12/12/23 08:45 Dose: 1 appl Trazodone HCl (Trazodone Hcl 50 Mg Tablet) 50 mg PO BEDTIME MRX1 PRN PRN Reason: Insomnia Last Admin: 12/09/23 20:00 Dose: 50 mg Venlafaxine HCl (Venlafaxine Hcl 25 Mg Tablet) 25 mg PO BID@0800,1500 SARAH Last Admin: 12/12/23 14:32 Dose: 25 mg Allergies Allergies Allergy/AdvReac Type Severity Reaction Status Date / Time Sulfa (Sulfonamide Allergy Unknown Verified 11/21/23 13:58 Antibiotics) Assessment & Plan Assessment & Plan (1) Major neurocognitive disorder: Status: Acute Code(s): F03.90 - Unspecified dementia, unspecified severity, without behavioral disturbance, psychotic disturbance, mood disturbance, and anxiety (2) Non-insulin dependent type 2 diabetes mellitus: Status: Acute Code(s): E11.9 - Type 2 diabetes mellitus without complications (3) Hypertension: Status: Acute Code(s): I10 - Essential (primary) hypertension Plan The patient is an elderly female with a past history of dementia and other medical comorbidities who was admitted into the hospital for exacerbation of disorganization. While she was here, she became hypotensive and she needed to be seen and treated by the medical team. After being medically stable she was sent back to the unit. Plan 1. Continue with same treatment. 2. Continue with medical recommendations. 3. Family meeting to discuss discharge planning. During that family meeting it was clear that the patient is severely impaired and the family was on agreement to change Seroquel to Abilify and start a low dose of benzodiazepines, since Klonopin has not disinhibited in the past the patient. 4. Continue the same level of observation, one-to-one for safety 5. Discontinue Seroquel and starts Abilify 5 mg p.o. q.h.s.. 6. Start Klonopin 0.25 p.o. t.i.d. standing on December 01. 7. October 20 we change Effexor to immediate release 25 b.i.d. and metformin immediate release 500 since the patient takes her medications crushed. Reason for continued inpatient stay Substantial Risk for: inability to function Time Spent With Patient Time: Total time managing care of this patient today ____ minutes.
[2023-12-12] MEDS: ARIPiprazole 5 MG TABLET 7.5 MG PO (20:21)
[2023-12-12] MEDS: Mirtazapine 30 MG TABLET PO (20:21)
[2023-12-12] MEDS: Atorvastatin Calcium 20 MG TABLET PO (20:21)
[2023-12-13] MEDS: clonazePAM 0.5 MG TABLET PO (01:34)
[2023-12-13 08:05] VITALS: BP 122/63; PULSE 63; RESP 18; TEMP 36.8; O2SAT 98
[2023-12-13] MEDS: metFORMIN HCl 500 MG TABLET PO ×2 (08:20→16:27)
[2023-12-13] MEDS: Venlafaxine HCL 25 MG TABLET PO ×2 (08:20→14:43)
[2023-12-13] MEDS: Nystatin Powder 15 GM BOTTLE 1 APPL TOPICAL (08:26)
--- NOTE | 2023-12-13 16:03 | P.PNPSI_ITS ---
Subjective Subjective Date of Service: 12/13/23 Reason For Visit: mental health crisis Subjective Notes: Conditional Voluntary Interim History: Pt slept through the night. She was ambulating around the unit. severe aphasia. No behavioral concerns. Pt not oriented to place, month, situation or year. taking medications as prescribed. Review of Systems Review of Systems Yes Unobtainable due to mental status Mental Status Exam Mental Status Exam Patient Appearance: Well Grooomed Patient Orientation: Person Level of Consciousness: Alert Patient Behavior: Appropriate Mood Description: Withdrawn Affect Description: Calm Patient Cognition Impaired: Yes Ability to Follow Directions: Poor Speech Pattern: Aphasic Diagnostics Vital Signs (24Hr): Vital Signs - 24 hr 12/12/23 20:00 12/13/23 08:05 Temperature 98.2 F 98.2 F Pulse Rate 74 63 Respiratory Rate 18 18 Blood Pressure 124/58 L 122/63 Pulse Oximetry 97 98 Oxygen Delivery Method Room Air Room Air BMI result Body Mass Index 29.8 Labs 12/11/23 09:03 Medications Medications Current Medications Acetaminophen (Acetaminophen 325 Mg Tablet) 650 mg PO Q6H PRN PRN Reason: Headache/Pain Mild Scale (1-3) Al Hydroxide/Mg Hydroxide (Magnesium Hydrox/Alum Hydrox 30 Ml Oral.Susp) 30 ml PO Q6H PRN PRN Reason: Heartburn/Nausea Aripiprazole (Aripiprazole 5 Mg Tablet) 7.5 mg PO BEDTIME SARAH Last Admin: 12/12/23 20:21 Dose: 7.5 mg Atorvastatin Calcium (Atorvastatin Calcium 20 Mg Tablet) 20 mg PO BEDTIME SARAH Last Admin: 12/12/23 20:21 Dose: 20 mg Calcium Carbonate (Calcium Carbonate 750 Mg Tab.Chew) 300 mg PO Q4H PRN PRN Reason: Heartburn Clonazepam (Clonazepam 0.5 Mg Tablet) 0.5 mg PO BID PRN PRN Reason: agitation Last Admin: 12/13/23 01:34 Dose: 0.5 mg Hydroxyzine HCl (Hydroxyzine Hcl 25 Mg Tablet) 25 mg PO Q6H PRN PRN Reason: Anxiety Last Admin: 12/09/23 20:00 Dose: 25 mg Magnesium Hydroxide (Milk Of Magnesia 30 Ml Oral.Susp) 30 ml PO DAILY PRN PRN Reason: Constipation Melatonin (Melatonin 3 Mg Tablet) 6 mg PO BEDTIME PRN PRN Reason: Sleep Last Admin: 12/09/23 20:00 Dose: 6 mg Metformin HCl (Metformin Hcl 500 Mg Tablet) 500 mg PO BIDWM [facility] Last Admin: 12/13/23 08:20 Dose: 500 mg Mirtazapine (Mirtazapine 30 Mg Tablet) 30 mg PO BEDTIME SARAH Last Admin: 12/12/23 20:21 Dose: 30 mg Nystatin (Nystatin Powder 15 Gm Bottle) 1 appl TOPICAL BID SARAH; Protocol Last Admin: 12/13/23 08:26 Dose: 1 appl Trazodone HCl (Trazodone Hcl 50 Mg Tablet) 50 mg PO BEDTIME MRX1 PRN PRN Reason: Insomnia Last Admin: 12/09/23 20:00 Dose: 50 mg Venlafaxine HCl (Venlafaxine Hcl 25 Mg Tablet) 25 mg PO BID@0800,1500 [facility] Last Admin: 12/13/23 14:43 Dose: 25 mg Allergies Allergies Allergy/AdvReac Type Severity Reaction Status Date / Time Sulfa (Sulfonamide Allergy Unknown Verified 11/21/23 13:58 Antibiotics) Assessment & Plan Assessment & Plan (1) Major neurocognitive disorder: Status: Acute Code(s): F03.90 - Unspecified dementia, unspecified severity, without behavioral disturbance, psychotic disturbance, mood disturbance, and anxiety (2) Non-insulin dependent type 2 diabetes mellitus: Status: Acute Code(s): E11.9 - Type 2 diabetes mellitus without complications (3) Hypertension: Status: Acute Code(s): I10 - Essential (primary) hypertension Plan The patient is an elderly female with a past history of dementia and other medical comorbidities who was admitted into the hospital for exacerbation of disorganization. While she was here, she became hypotensive and she needed to be seen and treated by the medical team. After being medically stable she was sent back to the unit. Plan 1. Continue with same treatment. 2. Continue with medical recommendations. 3. Family meeting to discuss discharge planning. During that family meeting it was clear that the patient is severely impaired and the family was on agreement to change Seroquel to Abilify and start a low dose of benzodiazepines, since Klonopin has not disinhibited in the past the patient. 4. Continue the same level of observation, one-to-one for safety 5. Discontinue Seroquel and starts Abilify 5 mg p.o. q.h.s.. 6. Start Klonopin 0.25 p.o. t.i.d. standing on December 01. . December 05 we change Effexor to immediate release 25 b.i.d. and metformin immediate release 500 since the patient takes her medications crushed. Reason for continued inpatient stay Substantial Risk for: inability to function Time Spent With Patient Time: Total time managing care of this patient today ____ minutes.
[2023-12-13 19:55] VITALS: BP 142/68; PULSE 84; RESP 18; TEMP 36.6; O2SAT 94
[2023-12-13] MEDS: Mirtazapine 30 MG TABLET PO (20:09)
[2023-12-13] MEDS: traZODone HCL 50 MG TABLET PO ×2 (20:09→21:31)
[2023-12-13] MEDS: Atorvastatin Calcium 20 MG TABLET PO (20:09)
[2023-12-13] MEDS: ARIPiprazole 5 MG TABLET 7.5 MG PO (20:10)
[2023-12-13] MEDS: hydrOXYzine HCL 25 MG TABLET PO (21:31)
[2023-12-13] MEDS: Melatonin 3 MG TABLET 6 MG PO (21:31)
[2023-12-14 08:00] VITALS: BP 128/58; PULSE 87; RESP 18; O2SAT 97
[2023-12-14] MEDS: metFORMIN HCl 500 MG TABLET PO ×2 (08:43→16:56)
[2023-12-14] MEDS: Venlafaxine HCL 25 MG TABLET PO ×2 (08:44→15:00)
[2023-12-14] MEDS: Nystatin Powder 15 GM BOTTLE 1 APPL TOPICAL ×2 (10:47→20:23)
[2023-12-14 20:00] VITALS: BP 106/59; PULSE 71; RESP 18; TEMP 36.7; O2SAT 98
[2023-12-14] MEDS: Melatonin 3 MG TABLET 6 MG PO (20:19)
[2023-12-14] MEDS: ARIPiprazole 5 MG TABLET 7.5 MG PO (20:19)
[2023-12-14] MEDS: Atorvastatin Calcium 20 MG TABLET PO (20:19)
[2023-12-14] MEDS: traZODone HCL 50 MG TABLET PO (20:19)
[2023-12-14] MEDS: Mirtazapine 30 MG TABLET PO (20:20)
--- NOTE | 2023-12-14 20:30 | P.PNPSI_ITS ---
Subjective Subjective Date of Service: 12/14/23 Reason For Visit: mental health crisis Subjective Notes: Conditional Voluntary Interim History: Pt slept through the night. She was ambulating around the unit. severe aphasia. No behavioral concerns. Pt not oriented to place, month, situation or year. taking medications as prescribed. Review of Systems Review of Systems Yes Unobtainable due to mental status Mental Status Exam Mental Status Exam Patient Appearance: Well Grooomed Patient Orientation: Person Level of Consciousness: Alert Patient Behavior: Appropriate Mood Description: Withdrawn Affect Description: Calm Patient Cognition Impaired: Yes Ability to Follow Directions: Poor Speech Pattern: Aphasic Diagnostics Vital Signs (24Hr): Vital Signs - 24 hr 12/14/23 08:00 Pulse Rate 87 Respiratory Rate 18 Blood Pressure 128/58 L Pulse Oximetry 97 Oxygen Delivery Method Room Air BMI result Body Mass Index 29.8 Labs 12/11/23 09:03 Medications Medications Current Medications Acetaminophen (Acetaminophen 325 Mg Tablet) 650 mg PO Q6H PRN PRN Reason: Headache/Pain Mild Scale (1-3) Al Hydroxide/Mg Hydroxide (Magnesium Hydrox/Alum Hydrox 30 Ml Oral.Susp) 30 ml PO Q6H PRN PRN Reason: Heartburn/Nausea Aripiprazole (Aripiprazole 5 Mg Tablet) 7.5 mg PO BEDTIME SARAH Last Admin: 12/14/23 20:19 Dose: 7.5 mg Atorvastatin Calcium (Atorvastatin Calcium 20 Mg Tablet) 20 mg PO BEDTIME SARAH Last Admin: 12/14/23 20:19 Dose: 20 mg Calcium Carbonate (Calcium Carbonate 750 Mg Tab.Chew) 300 mg PO Q4H PRN PRN Reason: Heartburn Clonazepam (Clonazepam 0.5 Mg Tablet) 0.5 mg PO BID PRN PRN Reason: agitation Last Admin: 12/13/23 01:34 Dose: 0.5 mg Hydroxyzine HCl (Hydroxyzine Hcl 25 Mg Tablet) 25 mg PO Q6H PRN PRN Reason: Anxiety Last Admin: 12/13/23 21:31 Dose: 25 mg Magnesium Hydroxide (Milk Of Magnesia 30 Ml Oral.Susp) 30 ml PO DAILY PRN PRN Reason: Constipation Melatonin (Melatonin 3 Mg Tablet) 6 mg PO BEDTIME PRN PRN Reason: Sleep Last Admin: 12/14/23 20:19 Dose: 6 mg Metformin HCl (Metformin Hcl 500 Mg Tablet) 500 mg PO BIDWM SARAH Last Admin: 12/14/23 16:56 Dose: 500 mg Mirtazapine (Mirtazapine 30 Mg Tablet) 30 mg PO BEDTIME SARAH Last Admin: 12/14/23 20:20 Dose: 30 mg Nystatin (Nystatin Powder 15 Gm Bottle) 1 appl TOPICAL BID [facility]; Protocol Last Admin: 12/14/23 20:23 Dose: 1 appl Trazodone HCl (Trazodone Hcl 50 Mg Tablet) 50 mg PO BEDTIME MRX1 PRN PRN Reason: Insomnia Last Admin: 12/14/23 20:19 Dose: 50 mg Venlafaxine HCl (Venlafaxine Hcl 25 Mg Tablet) 25 mg PO BID@0800,1500 [facility] Last Admin: 12/14/23 15:00 Dose: 25 mg Allergies Allergies Allergy/AdvReac Type Severity Reaction Status Date / Time Sulfa (Sulfonamide Allergy Unknown Verified 11/21/23 13:58 Antibiotics) Assessment & Plan Assessment & Plan (1) Major neurocognitive disorder: Status: Acute Code(s): F03.90 - Unspecified dementia, unspecified severity, without behavioral disturbance, psychotic disturbance, mood disturbance, and anxiety (2) Non-insulin dependent type 2 diabetes mellitus: Status: Acute Code(s): E11.9 - Type 2 diabetes mellitus without complications (3) Hypertension: Status: Acute Code(s): I10 - Essential (primary) hypertension Plan The patient is an elderly female with a past history of dementia and other medical comorbidities who was admitted into the hospital for exacerbation of disorganization. While she was here, she became hypotensive and she needed to be seen and treated by the medical team. After being medically stable she was sent back to the unit. Plan 1. Continue with same treatment. 2. Continue with medical recommendations. 3. Family meeting to discuss discharge planning. During that family meeting it was clear that the patient is severely impaired and the family was on agreement to change Seroquel to Abilify and start a low dose of benzodiazepines, since Klonopin has not disinhibited in the past the patient. 4. Continue the same level of observation, one-to-one for safety 5. Discontinue Seroquel and starts Abilify 5 mg p.o. q.h.s.. 6. Start Klonopin 0.25 p.o. t.i.d. standing on December 01. December 05 we change Effexor to immediate release 25 b.i.d. and metformin immediate release 500 since the patient takes her medications crushed. Reason for continued inpatient stay Substantial Risk for: inability to function Time Spent With Patient Time: Total time managing care of this patient today ____ minutes.
[2023-12-15 08:00] VITALS: BP 136/65; PULSE 75; RESP 16; O2SAT 94
[2023-12-15] MEDS: metFORMIN HCl 500 MG TABLET PO ×2 (08:27→18:16)
[2023-12-15] MEDS: Venlafaxine HCL 25 MG TABLET PO ×2 (08:28→15:22)
[2023-12-15 20:00] VITALS: BP 128/78; PULSE 78; RESP 18; TEMP 36.6; O2SAT 96
[2023-12-15] MEDS: hydrOXYzine HCL 25 MG TABLET PO (20:35)
[2023-12-15] MEDS: traZODone HCL 50 MG TABLET PO (20:35)
[2023-12-15] MEDS: ARIPiprazole 5 MG TABLET 7.5 MG PO (20:35)
[2023-12-15] MEDS: Mirtazapine 30 MG TABLET PO (20:35)
[2023-12-15] MEDS: Melatonin 3 MG TABLET 6 MG PO (20:35)
[2023-12-15] MEDS: Atorvastatin Calcium 20 MG TABLET PO (20:35)
[2023-12-15] MEDS: Nystatin Powder 15 GM BOTTLE 1 APPL TOPICAL (20:40)
[2023-12-16 08:00] VITALS: BP 129/84; PULSE 81; RESP 20; TEMP 36.4; O2SAT 96
[2023-12-16] MEDS: metFORMIN HCl 500 MG TABLET PO ×2 (09:23→17:18)
[2023-12-16] MEDS: Venlafaxine HCL 25 MG TABLET PO ×2 (09:23→14:28)
[2023-12-16] MEDS: hydrOXYzine HCL 25 MG TABLET PO (14:28)
[2023-12-16] MEDS: Atorvastatin Calcium 20 MG TABLET PO (20:26)
[2023-12-16] MEDS: ARIPiprazole 5 MG TABLET 7.5 MG PO (20:26)
[2023-12-16] MEDS: Mirtazapine 30 MG TABLET PO (20:27)
--- NOTE | 2023-12-16 21:46 | HO.PSYCHPN ---
Subjective Subjective Date of Service: 12/16/23 Reason For Visit: mental health crisis Interim History: Pt slept through the night. She was ambulating around the unit. severe aphasia. No behavioral concerns. Pt not oriented to place, month, situation or year. taking medications as prescribed. Review of Systems Review of Systems Yes Unobtainable due to mental status Mental Status Exam Mental Status Exam Patient Appearance: Well Grooomed Patient Orientation: Person Level of Consciousness: Alert Patient Behavior: Appropriate Mood Description: Withdrawn Affect Description: Calm Patient Cognition Impaired: Yes Ability to Follow Directions: Poor Speech Pattern: Aphasic Diagnostics Vital Signs (24Hr): Vital Signs - 24 hr 12/16/23 08:00 Temperature 97.5 F Pulse Rate 81 Respiratory Rate 20 Blood Pressure 129/84 Pulse Oximetry 96 Oxygen Delivery Method Room Air BMI result Body Mass Index 29.8 Labs 12/11/23 09:03 Medications Medications Current Medications Acetaminophen (Acetaminophen 325 Mg Tablet) 650 mg PO Q6H PRN PRN Reason: Headache/Pain Mild Scale (1-3) Al Hydroxide/Mg Hydroxide (Magnesium Hydrox/Alum Hydrox 30 Ml Oral.Susp) 30 ml PO Q6H PRN PRN Reason: Heartburn/Nausea Aripiprazole (Aripiprazole 5 Mg Tablet) 7.5 mg PO BEDTIME SARAH Last Admin: 12/16/23 20:26 Dose: 7.5 mg Atorvastatin Calcium (Atorvastatin Calcium 20 Mg Tablet) 20 mg PO BEDTIME SARAH Last Admin: 12/16/23 20:26 Dose: 20 mg Calcium Carbonate (Calcium Carbonate 750 Mg Tab.Chew) 300 mg PO Q4H PRN PRN Reason: Heartburn Clonazepam (Clonazepam 0.5 Mg Tablet) 0.5 mg PO BID PRN PRN Reason: agitation Last Admin: 12/13/23 01:34 Dose: 0.5 mg Hydroxyzine HCl (Hydroxyzine Hcl 25 Mg Tablet) 25 mg PO Q6H PRN PRN Reason: Anxiety Last Admin: 12/16/23 14:28 Dose: 25 mg Magnesium Hydroxide (Milk Of Magnesia 30 Ml Oral.Susp) 30 ml PO DAILY PRN PRN Reason: Constipation Melatonin (Melatonin 3 Mg Tablet) 6 mg PO BEDTIME PRN PRN Reason: Sleep Last Admin: 12/15/23 20:35 Dose: 6 mg Metformin HCl (Metformin Hcl 500 Mg Tablet) 500 mg PO BIDWM SARAH Last Admin: 12/16/23 17:18 Dose: 500 mg Mirtazapine (Mirtazapine 30 Mg Tablet) 30 mg PO BEDTIME SARAH Last Admin: 12/16/23 20:27 Dose: 30 mg Nystatin (Nystatin Powder 15 Gm Bottle) 1 appl TOPICAL BID [facility]; Protocol Last Admin: 12/16/23 20:34 Dose: Not Given Trazodone HCl (Trazodone Hcl 50 Mg Tablet) 50 mg PO BEDTIME MRX1 PRN PRN Reason: Insomnia Last Admin: 12/15/23 20:35 Dose: 50 mg Venlafaxine HCl (Venlafaxine Hcl 25 Mg Tablet) 25 mg PO BID@0800,1500 [facility] Last Admin: 12/16/23 14:28 Dose: 25 mg Allergies Allergies Allergy/AdvReac Type Severity Reaction Status Date / Time Sulfa (Sulfonamide Allergy Unknown Verified 11/21/23 13:58 Antibiotics) Assessment & Plan Assessment & Plan (1) Major neurocognitive disorder: Status: Acute Code(s): F03.90 - Unspecified dementia, unspecified severity, without behavioral disturbance, psychotic disturbance, mood disturbance, and anxiety (2) Non-insulin dependent type 2 diabetes mellitus: Status: Acute Code(s): E11.9 - Type 2 diabetes mellitus without complications (3) Hypertension: Status: Acute Code(s): I10 - Essential (primary) hypertension Plan The patient is an elderly female with a past history of dementia and other medical comorbidities who was admitted into the hospital for exacerbation of disorganization. While she was here, she became hypotensive and she needed to be seen and treated by the medical team. After being medically stable she was sent back to the unit. Plan 1. Continue with same treatment. 2. Continue with medical recommendations. 3. Family meeting to discuss discharge planning. During that family meeting it was clear that the patient is severely impaired and the family was on agreement to change Seroquel to Abilify and start a low dose of benzodiazepines, since Klonopin has not disinhibited in the past the patient. 4. Continue the same level of observation, one-to-one for safety 5. Discontinue Seroquel and starts Abilify 5 mg p.o. q.h.s.. 6. Start Klonopin 0.25 p.o. t.i.d. standing on December 01. 7. December 05 we change Effexor to immediate release 25 b.i.d. and metformin immediate release 500 since the patient takes her medications crushed. Reason for continued inpatient stay Substantial Risk for: inability to function Time Spent With Patient Time: Total time managing care of this patient today ____ minutes.
[2023-12-17] MEDS: traZODone HCL 50 MG TABLET PO (00:24)
[2023-12-17 08:45] VITALS: BP 140/82; PULSE 83; RESP 16; TEMP 36.2; O2SAT 98
[2023-12-17] MEDS: Venlafaxine HCL 25 MG TABLET PO ×2 (08:47→15:20)
[2023-12-17] MEDS: Nystatin Powder 15 GM BOTTLE 1 APPL TOPICAL ×2 (08:47→21:38)
[2023-12-17] MEDS: metFORMIN HCl 500 MG TABLET PO ×2 (08:47→17:05)
--- NOTE | 2023-12-17 14:56 | P.PNPSI_ITS ---
Subjective Subjective Date of Service: 12/17/23 Reason For Visit: mental health crisis Subjective Notes: Conditional Voluntary Healthcare Proxy: Yes Interim History: The nursing staff reported the patient had been compliant with treatment, with for mood. She slept well last night. On interview the patient is pleasantly confused. Tomorrow we will discharge her back home with aftercare. Mental Status Exam Mental Status Exam Patient Appearance: Appropriate Patient Orientation: Person and Situation Level of Consciousness: Awake and Appropriate Patient Behavior: Guarded and Passive Mood Description: Withdrawn Affect Description: Constricted Patient Cognition Impaired: Yes Ability to Follow Directions: Good Speech Pattern: Clear Hallucinations: None Delusions: Not Present Thought Process: Distracted and Slowed Thinking Thought Content: positive for [place] and positive for Thought Blocking Judgement: Poor Diagnostics Vital Signs (24Hr): Vital Signs - 24 hr 12/17/23 08:45 Temperature 97.2 F Pulse Rate 83 Respiratory Rate 16 Blood Pressure 140/82 H Pulse Oximetry 98 Oxygen Delivery Method Room Air BMI result Body Mass Index 30.0 Labs 12/11/23 09:03 Medications Medications Current Medications Acetaminophen (Acetaminophen 325 Mg Tablet) 650 mg PO Q6H PRN PRN Reason: Headache/Pain Mild Scale (1-3) Al Hydroxide/Mg Hydroxide (Magnesium Hydrox/Alum Hydrox 30 Ml Oral.Susp) 30 ml PO Q6H PRN PRN Reason: Heartburn/Nausea Aripiprazole (Aripiprazole 5 Mg Tablet) 7.5 mg PO BEDTIME SARAH Last Admin: 12/16/23 20:26 Dose: 7.5 mg Atorvastatin Calcium (Atorvastatin Calcium 20 Mg Tablet) 20 mg PO BEDTIME SARAH Last Admin: 12/16/23 20:26 Dose: 20 mg Calcium Carbonate (Calcium Carbonate 750 Mg Tab.Chew) 300 mg PO Q4H PRN PRN Reason: Heartburn Clonazepam (Clonazepam 0.5 Mg Tablet) 0.5 mg PO BID PRN PRN Reason: agitation Last Admin: 12/13/23 01:34 Dose: 0.5 mg Hydroxyzine HCl (Hydroxyzine Hcl 25 Mg Tablet) 25 mg PO Q6H PRN PRN Reason: Anxiety Last Admin: 12/16/23 14:28 Dose: 25 mg Magnesium Hydroxide (Milk Of Magnesia 30 Ml Oral.Susp) 30 ml PO DAILY PRN PRN Reason: Constipation Melatonin (Melatonin 3 Mg Tablet) 6 mg PO BEDTIME PRN PRN Reason: Sleep Last Admin: 12/15/23 20:35 Dose: 6 mg Metformin HCl (Metformin Hcl 500 Mg Tablet) 500 mg PO BIDWM SARAH Last Admin: 12/17/23 08:47 Dose: 500 mg Mirtazapine (Mirtazapine 30 Mg Tablet) 30 mg PO BEDTIME SARAH Last Admin: 12/16/23 20:27 Dose: 30 mg Nystatin (Nystatin Powder 15 Gm Bottle) 1 appl TOPICAL BID SARAH; Protocol Last Admin: 12/17/23 08:47 Dose: 1 appl Trazodone HCl (Trazodone Hcl 50 Mg Tablet) 50 mg PO BEDTIME MRX1 PRN PRN Reason: Insomnia Last Admin: 12/17/23 00:24 Dose: 50 mg Venlafaxine HCl (Venlafaxine Hcl 25 Mg Tablet) 25 mg PO BID@0800,1500 [facility] Last Admin: 12/17/23 08:47 Dose: 25 mg Allergies Allergies Allergy/AdvReac Type Severity Reaction Status Date / Time Sulfa (Sulfonamide Allergy Unknown Verified 11/21/23 13:58 Antibiotics) Assessment & Plan Assessment & Plan (1) Major neurocognitive disorder: Status: Acute Code(s): F03.90 - Unspecified dementia, unspecified severity, without behavioral disturbance, psychotic disturbance, mood disturbance, and anxiety (2) Non-insulin dependent type 2 diabetes mellitus: Status: Acute Code(s): E11.9 - Type 2 diabetes mellitus without complications (3) Hypertension: Status: Acute Code(s): I10 - Essential (primary) hypertension Plan The patient is an elderly female with a past history of dementia and other medical comorbidities who was admitted into the hospital for exacerbation of disorganization. While she was here, she became hypotensive and she needed to be seen and treated by the medical team. After being medically stable she was sent back to the unit. Plan 1. Continue with same treatment. 2. Continue with medical recommendations. 3. Family meeting to discuss discharge planning. During that family meeting it was clear that the patient is severely impaired and the family was on agreement to change Seroquel to Abilify and start a low dose of benzodiazepines, since Klonopin has not disinhibited in the past the patient. 4. Continue the same level of observation, one-to-one for safety 5. Discontinue Seroquel and starts Abilify 5 mg p.o. q.h.s.. 6. Start Klonopin 0.25 p.o. t.i.d. standing on December 01. 7. December 05 we change Effexor to immediate release 25 b.i.d. and metformin immediate release 500 since the patient takes her medications crushed. 8. Discharge for tomorrow December 17 Reason for continued inpatient stay Substantial Risk for: inability to function, rapid decompensation and med/psych decompensation Time Spent With Patient Time: Total time managing care of this patient today _20___ minutes.
[2023-12-17 20:16] VITALS: BP 132/81; PULSE 95; RESP 18; TEMP 36.3; O2SAT 96
[2023-12-17] MEDS: ARIPiprazole 5 MG TABLET 7.5 MG PO (20:22)
[2023-12-17] MEDS: Atorvastatin Calcium 20 MG TABLET PO (20:22)
[2023-12-17] MEDS: Mirtazapine 30 MG TABLET PO (20:22)
--- NOTE | 2023-12-18 08:02 | P.DS_ITS ---
DS: Providers Provider Date of Service: 12/18/23 Date of admission: 11/30/23 13:06 Date of discharge: 12/18/23 Primary care physician: Unknown Physician DS: Diagnosis Discharge Diagnosis (1) Major neurocognitive disorder: Status: Acute (2) Non-insulin dependent type 2 diabetes mellitus: Status: Acute (3) Hypertension: Status: Acute DS: Medications Discharge Medications Home Medications: Home Medications ?Medication ?Instructions ?Recorded ?Confirmed calcium carbonate (Tums) 300 mg PO Q4H PRN Heartburn 11/30/23 11/30/23 enoxaparin 40 mg/0.4 mL 40 mg subcut DAILY@0600 11/30/23 11/30/23 subcutaneous syringe (Lovenox) melatonin 3 mg tablet 6 mg PO BEDTIME PRN Sleep 11/30/23 11/30/23 metformin 500 mg tablet,extended 500 mg PO BID 12/03/23 12/03/23 release 24 hr Previous Rx's ?Medication ?Instructions ?Recorded acetaminophen 325 mg tablet 650 mg (2 x 325 mg) PO Q6H PRN 11/27/23 Headache/Pain Mild Scale (1-3) #0 tabs atorvastatin 20 mg tablet 20 mg PO BEDTIME #0 tabs 11/27/23 clonazepam 0.5 mg tablet 0.5 mg PO BID PRN agitation #0 tabs 11/27/23 mirtazapine 30 mg tablet 30 mg PO BEDTIME #0 tabs 11/27/23 quetiapine 25 mg tablet 25 mg PO BID PRN insomnia #0 tabs 11/27/23 quetiapine 50 mg tablet 50 mg PO TID #0 tabs 11/27/23 trazodone 50 mg tablet 50 mg PO BEDTIME MRX1 PRN Insomnia 11/27/23 #0 tabs venlafaxine 75 mg capsule,extended 75 mg PO DAILY #0 caps 11/27/23 release 24 hr aripiprazole 5 mg tablet (Abilify) 7.5 mg (1.5 x 5 mg) PO BEDTIME #30 12/15/23 tabs atorvastatin 20 mg tablet 20 mg PO BEDTIME #30 tabs 12/15/23 clonazepam 0.5 mg tablet 0.5 mg PO BID PRN agitation #60 12/15/23 tabs melatonin 3 mg tablet 6 mg (2 x 3 mg) PO BEDTIME PRN 12/15/23 Sleep #60 tabs metformin 500 mg tablet 500 mg PO BIDWM #60 tabs 12/15/23 mirtazapine 30 mg tablet 30 mg PO BEDTIME #30 tabs 12/15/23 nystatin 100,000 unit/gram topical 1 appl topical BID #15 grams 12/15/23 powder trazodone 50 mg tablet 50 mg PO BEDTIME MRX1 PRN Insomnia 12/15/23 #30 tabs venlafaxine 25 mg tablet 25 mg PO BID@0800,1500 #60 tabs 12/15/23 Mental Status Exam Mental Status Exam Patient Appearance: Well Grooomed and Appropriate Patient Orientation: Person Level of Consciousness: Awake Patient Behavior: Guarded Mood Description: Calm Affect Description: Calm Patient Cognition Impaired: Yes Ability to Follow Directions: Fair Speech Pattern: Clear Hallucinations: None Delusions: Not Present Thought Process: Distracted and Slowed Thinking Thought Content: positive for [place] Content and positive for Thought Blocking Judgement: Poor Data Data Completed and Pending Completed studies during hospitalization [Text1]: 12/11/23 12/18/23 09:03 07:51 Hold Purple Top SEE NOTE Creatinine 0.88 Pending Estim Creat Clear Calc 58.1 Pending Estimated GFR > 60 Pending DS: Summary Hospital Course Hospital Course: The patient is a 73-year-old female, , mother of adult children, living with her with a history of advanced dementia. The patient was brought to the emergency room by her reporting that she had been more agitated with disorganized behavior in the last week. Apparently, as per 's report, her baseline is poor, she had been diagnosed on several medical comorbidities, including dementia advanced. She was assessed by the care team and transferring to this facility for psychiatric stabilization. On admission, in the ED, she had a positive WBC but negative culture so antibiotics were not started. The patient was severely demented with limited ability to make her needs known. She was continue Seroquel that was already started in the community and Ativan for anxiety. The patient had a past history of depression and she had been on venlafaxine and Remeron in the past. The patient needed to be on one-to-one and needed to have or her ADLs done by her since the patient was severely impaired. While she was in the unit, she had an episode of hypotension and a code was needed to be called and she was transferred to Medicine for a few days where her vital signs and blood pressure were stabilized. After being medically cleared she was transferred back to Psychiatry. We had a family meeting and a relative reported that the patient never did well on Seroquel and she does not have paradoxical response to benzodiazepines. We discussed options and we decided to change to Abilify titrated up to 7.5 mg p.o. q.h.s. to target psychosis and disorganized behavior. Also the patient was very difficult to swallow pills so we change her Effexor XR to Effexor regular twice a day. We started Klonopin standing 0.5 p.o. b.i.d. to target anxiety with for improvement. The patient's behavior improved she was pleasant, cooperative, confused but easily redirectable. Since her behavior was much better and there was no evidence of any safety concerns discharge planning was discussed. Time spent discussing smoking cessation with patient: 3 to 10 minutes Status at Discharge Cognitive/behavioral status at discharge: Severely impaired at baseline Functional status at discharge: uses cane/walker Overall status at discharge: patient is back to baseline Time Spent with Patient Time attestation: Total time managing care of this patient today _30___ minutes. Time spent: Less than 30 minutes Discharge Plan Discharge Anticipated Discharge Date/Time: 12/18/23 10:00 Patient Disposition: Home Health Service Discharge Diagnosis: Dementia Major depressive disorder Diabetes type 2 Referrals: Reva Momin [Other] - 12/30/23 12:00 pm (Alana will have a telehealth appointment on 12/29 at 12:00pm. They will send the link for the appointment that morning and if there are any concerns or questions please call the number above.) Ar Garcia MD [Physician] - 12/24/23 2:30 pm (Ashlie Jesse was unable to see Alana until January. Alana will see someone on her team Ar Garcia. The appointment will be in person due to the clinics procedure with follow ups. IF there are any concerns or questions please call the number above.) Discharge Medications: New metformin 500 mg Tablet 500 mg PO BIDWM Qty: 60 0RF atorvastatin 20 mg Tablet 20 mg PO BEDTIME Qty: 30 0RF trazodone 50 mg Tablet 50 mg PO BEDTIME MRX1 PRN (Reason: Insomnia) Qty: 30 0RF venlafaxine 25 mg Tablet 25 mg PO BID@0800,1500 Qty: 60 0RF clonazepam 0.5 mg Tablet 0.5 mg PO BID PRN (Reason: agitation) Qty: 60 0RF melatonin 3 mg Tablet 6 mg PO BEDTIME PRN (Reason: Sleep) Qty: 60 0RF mirtazapine 30 mg Tablet 30 mg PO BEDTIME Qty: 30 0RF aripiprazole [Abilify] 5 mg Tablet 7.5 mg PO BEDTIME Qty: 30 0RF nystatin 100,000 unit/gram powder 1 appl topical BID Qty: 15 0RF Discontinued quetiapine 25 mg Tablet 25 mg PO BID PRN (Reason: insomnia) Qty: 0 0RF acetaminophen 325 mg Tablet 650 mg PO Q6H PRN (Reason: Headache/Pain Mild Scale (1-3)) Qty: 0 0RF venlafaxine 75 mg Capsule,Extended Release 24hr 75 mg PO DAILY Qty: 0 0RF atorvastatin 20 mg Tablet 20 mg PO BEDTIME Qty: 0 0RF trazodone 50 mg Tablet 50 mg PO BEDTIME MRX1 PRN (Reason: Insomnia) Qty: 0 0RF clonazepam 0.5 mg Tablet 0.5 mg PO BID PRN (Reason: agitation) Qty: 0 0RF mirtazapine 30 mg Tablet 30 mg PO BEDTIME Qty: 0 0RF quetiapine 50 mg Tablet 50 mg PO TID Qty: 0 0RF Tums 300 mg (750 mg) Tablet,Chewable 300 mg PO Q4H PRN (Reason: Heartburn) melatonin 3 mg Tablet 6 mg PO BEDTIME PRN (Reason: Sleep) enoxaparin [Lovenox] 40 mg/0.4 mL Syringe 40 mg SUBCUT DAILY@0600 metformin 500 mg tablet extended release 24 hr 500 mg PO BID Discharge Orders: Discharge Order (Routine); Ordered 12/18/23 Ordered By: Cristian Finch Diet: Advance to usual diet Activity on Discharge: As tolerated Stand Alone Forms: Patient Portal Discharge page Print Language: Bulgarian Care Plan Goals: Care plan goals achieved in this admission Health Concerns: Continue treatment with primary care physician and other specialists Plan of Treatment: Continue treatment with a psychiatric provider as an outpatient. Continue with ancillary services at home. Assessment: Elderly female with advanced dementia admitted for agitation. Her medications were changed from Seroquel to Abilify and added a low dose of benzodiazepines that help her at this moment the patient is at baseline ready to be discharged to the community.
[2023-12-18 08:20] LABS: Creatinine Clr Calc Pharmacy 69.3; Estimated Glomerular Filt Rate > 60
[2023-12-18] MEDS: Venlafaxine HCL 25 MG TABLET PO (09:21)
[2023-12-18] MEDS: metFORMIN HCl 500 MG TABLET PO (09:21)
[2023-12-18] MEDS: Nystatin Powder 15 GM BOTTLE 1 APPL TOPICAL (09:25)
[2023-12-18 09:49] VITALS: BP 128/84; PULSE 84; RESP 17; TEMP 36.3; O2SAT 95
== END 2023-12-18 13:20 | disposition home health service (06) | DRG 881 ==
PROVIDERS: Psychiatry & Neurology Psychiatry; Admitting Provider Psychiatry & Neurology Psychiatry; Visit Provider Psychiatry & Neurology Psychiatry
DX: F32.9 Major depressive disorder, single episode, unspecified (principal); F03.911 Unspecified dementia, unspecified severity, with agitation; R47.01 Aphasia; Z23 Encounter for immunization; E11.9 Type 2 diabetes mellitus without complications; I10 Essential (primary) hypertension; Z79.84 Long term (current) use of oral hypoglycemic drugs; Z79.899 Other long term (current) drug therapy
CPT/HCPCS: 36415; 82565; 82947; 90656

== ENCOUNTER → 2023-11-30 13:06 | Outpatient (BNV) | payer MEDICARE, OTHER, SELFPAY | PROVIDERS: Admitting Provider Psychiatry & Neurology Psychiatry; Visit Provider Psychiatry & Neurology Psychiatry | DX: F03.90 Unspecified dementia, unspecified severity, without behavioral disturbance, psychotic disturbance, mood disturbance, and anxiety (principal); E11.9 Type 2 diabetes mellitus without complications; I10 Essential (primary) hypertension | CPT/HCPCS: 90792; 99231; 99232; 99238 ==

== ENCOUNTER 2023-12-21 18:41 | Emergency (ER) | payer MEDICARE, OTHER, SELFPAY ==
--- NOTE | ~2023-12-21 | CT_ITS ---
EXAMINATION: NONCONTRAST HEAD CT NONCONTRAST MAXILLOFACIAL CT NONCONTRAST CERVICAL SPINE CT INDICATION INFORMATION: Fall. COMPARISON: Known. TECHNIQUE: Separate noncontrast CT examinations of the head, maxillofacial bones, and cervical spine were performed. Coronal and sagittal images were created for each examination at the technologist workstation. This CT examination was performed using dose optimization techniques as appropriate, variously including the following: *Automated exposure control *Adjustment of mA and/or kV according to patient size (this includes techniques or standardized protocols for targeted exams where dose is matched to indication/reason for exam; i.e. extremities or head) *Use of iterative reconstruction technique DLP: 1355 mGy-cm FINDINGS: Head: There is no evidence of acute intracranial hemorrhage or territorial infarction. No abnormal mass effect or midline shift is seen. Watson to white matter differentiation is well preserved. Severe cerebral volume loss with a bifrontal and bitemporal predominance; a component of chronic low density subdural collections and/or subdural hygromas in the bifrontal region is difficult to exclude. No hydrocephalus. Mild to moderate periventricular and deep white matter hypoattenuation consistent with chronic microangiopathy. No acute soft tissue abnormality. Hyperostosis frontalis interna. No calvarial fracture. The mastoid air cells are well aerated. Maxillofacial: Soft tissue hematoma in the right forehead and preorbital region. No acute maxillofacial fractures are seen. Mild mucosal thickening of the paranasal sinuses more prominent in the left maxillary sinus. No air-fluid levels. The mandibular heads are well-seated in the condylar fossa. The orbits demonstrate a normal appearance bilaterally. The globes are intact, and there are no suspicious findings to suggest retrobulbar hemorrhage. Bilateral lens extraction. Cervical spine: The atlantoaxial and atlantooccipital articulations are intact. Trace anterolisthesis of C3 on C4. No evidence of acute compression deformity or traumatic subluxation. Severe multilevel degenerative changes with intervertebral disc height loss, marginal osteophytes and facet/uncal hypertrophy leading to various degrees of neuroforaminal encroachment and central canal stenosis. Of note, CT is insensitive for evaluation of the central spinal canal in the absence of intrathecal contrast. No prevertebral soft tissue swelling is seen. Visualized portions of the lung apices are unremarkable. Mild heterogeneity of the thyroid gland. CT/CT cervical spine wo IV con IMPRESSION: 1. Soft tissue hematoma in the right forehead and preorbital region without acute maxillofacial fractures. 2. No acute intracranial hemorrhage or territorial infarction. 3. Severe cerebral volume loss with a bifrontal and bitemporal predominance, recommend clinical correlation for dementia. A component of chronic low density subdural collections and/or subdural hygromas in the bifrontal region is difficult to exclude. Further characterization with an MRI of the brain could be obtained as clinically warranted. 4. No acute cervical fractures or malalignment. 5. Severe multilevel degenerative changes of the cervical spine. 6. Mild heterogeneity of the thyroid gland, recommend evaluation with outpatient thyroid ultrasound. Electronically signed by: Lesa Aguila MD 12/21/2023 08:37 PM [facility]
--- NOTE | ~2023-12-21 | XR_ITS ---
EXAMINATION: XR HAND, RIGHT CLINICAL INFORMATION: Trauma. Pain. COMPARISON: None available. TECHNIQUE: PA, lateral, and oblique views of the right hand. FINDINGS: The bony structures are osteopenic. No fracture is seen. The soft tissues are unremarkable. XR/XR hand RT min 3V IMPRESSION: No significant abnormality seen. Electronically signed by: Frandy Ba MD 12/22/2023 04:12 AM EST
[2023-12-21 18:45] VITALS: BP 160/86; PULSE 79; RESP 16; TEMP 36.1; O2SAT 100; BMI 34.3
--- NOTE | 2023-12-21 18:53 | ED.GENADULT ---
HPI - General Adult General Chief complaint: Skin/Abscess/Foreign Body Stated complaint: R Eye Lac Fall 12/21/23 Time Seen by Provider: 12/21/23 22:31 Source: patient Limitations: no limitations History of Present Illness ED Provider: Lilliana Drummond PA-C HPI narrative: Patient is a 73 year old female who tripped on the sidewalk earlier, causing a laceration and contusion above the right eye. Patient denies LOC and changes in vision. Reports no blood thinner use. She also hit her hand and now has bruising and immobility of the right 3rd digit. This was not evident at the time of the fall however has become more bruised as the night has gone on. Related Data Previous Rx's ?Medication ?Instructions ?Recorded aripiprazole 5 mg tablet (Abilify) 7.5 mg (1.5 x 5 mg) PO BEDTIME #30 12/15/23 tabs atorvastatin 20 mg tablet 20 mg PO BEDTIME #30 tabs 12/15/23 clonazepam 0.5 mg tablet 0.5 mg PO BID PRN agitation #60 12/15/23 tabs melatonin 3 mg tablet 6 mg (2 x 3 mg) PO BEDTIME PRN 12/15/23 Sleep #60 tabs metformin 500 mg tablet 500 mg PO BIDWM #60 tabs 12/15/23 mirtazapine 30 mg tablet 30 mg PO BEDTIME #30 tabs 12/15/23 nystatin 100,000 unit/gram topical 1 appl topical BID #15 grams 12/15/23 powder trazodone 50 mg tablet 50 mg PO BEDTIME MRX1 PRN Insomnia 12/15/23 #30 tabs venlafaxine 25 mg tablet 25 mg PO BID@0800,1500 #60 tabs 12/15/23 Allergies Allergy/AdvReac Type Severity Reaction Status Date / Time Sulfa (Sulfonamide Allergy Unknown Verified 12/21/23 18:47 Antibiotics) Review of Systems Review of Systems: Yes all other systems are reviewed and are negative Constitutional: Constitutional: Denies fatigue and Denies fever(s) Eyes: Eyes: Denies blurry vision, Denies change in vision, Denies loss of vision and Denies eye pain Cardiovascular: Cardiovascular: Denies Abdominal Distension, Denies chest pain, Denies syncope, Denies leg edema, Denies Loss of Consciousness, Denies palpitations and Denies dyspnea Respiratory: Respiratory: Denies cough and Denies dyspnea Gastrointestinal: Gastrointestinal: Denies constipation, Denies diarrhea, Denies nausea and Denies vomiting Musculoskeletal: Musculoskeletal: Reports arthralgias (3rd right digit), Reports joint swelling (3rd right digit), Reports limited range of motion (3rd right digit), Denies numbness, Reports stiffness (3rd right digit) and Denies tingling Integumentary/Breasts: Skin/Breast: Denies lesions, Denies rash and Reports wounds (laceration/contusion on right eyebrow ) Neurologic: Denies syncope, Denies loss of vision, Denies numbness, Denies convulsions, Denies seizure-like activity and Denies tingling Endocrine: Endocrine: Denies fatigue and Denies palpitations PMF Past Medical History Attestation statement: The following information was validated with the patient. Medical History Non-insulin dependent type 2 diabetes mellitus Hypertension Mood disorder Severe dementia without behavioral disturbance, psychotic disturbance, mood disturbance, or anxiety Social History Social History Household Members: Unknown / Unable to assess Housing: Unknown / Unable to assess Comment: 1:1 Patient Tobacco Use Status: Tobacco use Unknown Advance Directives: No Advance Directives Information Provided: No service: No Sexual orientation: Straight/Heterosexual Physical Exam ED Vital Signs: Vital Signs - 24 hr 12/21/23 18:45 12/21/23 21:27 12/21/23 22:08 Temperature 97 F 97.8 F 98.4 F Pulse Rate 79 80 75 Respiratory Rate 16 19 18 Blood Pressure 160/86 H 158/88 H 159/92 H Pulse Oximetry 100 99 98 Oxygen Delivery Method Room Air Room Air Room Air 12/22/23 01:27 Temperature 98.4 F Pulse Rate 75 Respiratory Rate 18 Blood Pressure 159/92 H Pulse Oximetry 98 Oxygen Delivery Method Room Air BMI result Body Mass Index 34.3 Const General: cooperative, healthy appearing, comfortable, no acute distress and well developed; No anxious or combative Nutritional Appearance: overweight Orientation/consciousness: patient oriented x3 HENMT Head: Yes normal to inspection, Yes No palpable skull fracture present, Yes normocephalic, Yes contusion (right eyebrow ) and Yes laceration (right eyebrow ) Face and sinus: Yes laceration (right eyebrow ) Eyes General: appearance normal, both eyes and all related structures Visual Horvath: normal visual horvath by confrontation Alignment and Position: alignment normal and position normal Periorbital: periorbital findings normal Eyelids: Yes eyelids normal Conjunctivae: conjunctivae normal Sclerae: sclerae normal Corneas: corneas normal Pupils: Equal, round and reactive pupils present EOM: EOMs intact bilaterally Neck Neck: Yes normal visual inspection, Yes full ROM, Yes no meningeal signs and Yes no JVD Resp Effort & Inspection: normal respiratory effort, able to speak in complete sentences, no audible wheezes, no cough, not labored, no nasal flaring, no pursed lip breathing, no retractions, not tachypneic and no use of accessory muscles Cardio Jugular venous distension: no JVD GI Inspection: Yes normal to inspection and No distended Skin Other: warm and dry, no rash Trauma: laceration (right eyebrow ) Neuro General: patient oriented x3, no meningeal signs, no focal motor deficits and CN's II-XI intact bilaterally Cranial nerves: Yes CN's II-XII intact bilaterally, Yes Equal, round and reactive pupils present, Yes Bilaterally intact EOM present and Yes Ability to bilaterally rotate head present Extrem General: Yes capillary refill normal, No clubbing, No cyanosis and No edema Right upper extremity: Extremity exam: right hand (bruising and lateral dislocation of right 3rd digit ) Details: tenderness Location: of the 3rd digit Location: at the PIP joint and swelling Location: of the 3rd digit Location: at the PIP joint Psych Other: calm an cooperative Appearance: grossly normal Mental Status: mental status grossly normal Speech and movement: Normal speech and movement present and Clear speech present; No Slurred speech present or Psychomotor agitation in speech present Affect: normal affect Thought process: Normal thought process present Thought content: Normal thought content present Course Course Course Narrative: RME: 73-year-old female presents to ED for witnessed fall and head injury. Patient was walking as holding fell on the sidewalk hit the right side of the head onto objects. witnessed fall. There was no loss of consciousness. Patient denies any dizziness chest pain abdominal pain or shortness of breath before falling. Physical exam positive for right eyelid laceration. Images ordered. Medications Administered Discontinued Medications Generic Name Dose Route Start Last Admin Trade Name Armando PRN Reason Stop Dose Admin Aripiprazole 7.5 mg 12/21/23 22:37 12/21/23 23:07 Aripiprazole 5 Mg Tablet PO 12/21/23 22:38 7.5 mg ONCE ONE Administration Atorvastatin Calcium 20 mg 12/21/23 22:37 12/21/23 23:08 Atorvastatin Calcium 20 Mg Tablet PO 12/21/23 22:38 20 mg ONCE ONE Administration Mirtazapine 30 mg 12/21/23 22:37 12/21/23 23:08 Mirtazapine 30 Mg Tablet PO 12/21/23 22:38 30 mg ONCE ONE Administration Procedures Laceration Laceration 1: Site: face (eyebrow) Side (If applicable): right Size (cm): 3 Description: irregular and clean Depth: simple, single layer Local Anesthetic: lidocaine 1% and with epi Amount of anesthesia used (mL): 5 Pre-repair: irrigated extensively Skin layer closed with: vicryl Size (cm): 5-0 Number of sutures: 5 Technique: simple, interrupted Orthopedic Joint Reduction Joint #1: Time Out Performed: No Side: right Joint Reduction Location: finger Analgesia: nerve block Local Anesthesia: lidocaine 1% Amount of anesthesic used (mL): 3 Shoulder Technique Used (if applicable): traction/counter-traction Post-reduction neuro exam: intact Post-reduction vascular: intact Post Reduction X-Ray Obtained: No (Deformity resolved, she had full range of motion postreduction) Medical Decision Making Medical Decision Making MDM Narrative: Mandy Drummond PA-C have fully assessed manage the patient, Helen MUNOZ observed, helped to repair the laceration and formulate the documentation Patient is a 73 year old female who tripped on the sidewalk earlier, causing a laceration and contusion above the right eye. Patient denies LOC and changes in vision. Reports no blood thinner use. She also hit her hand and now has bruising and immobility of the right 3rd digit. This was not evident at the time of the fall however has become more bruised as the night has gone on. PMH of HTN, DM, and dementia. DDx: laceration, contusion, skull fracture, hematoma/hemorrhage, finger dislocation, finger fracture Plan: The injuries sustained were due to the patients fall on the sidewalk earlier today due to tripping. As she hit her head on the sidewalk, it is likely that was the cause of her laceration and contusion. No LOC. Hemorrhage and hematoma will be ruled out with a head CT. She has a roughly 3cm laceration on the right eyebrow that was irrigated and closed with 5 simple interrupted, 5-0 vicryl sutures. Patient also has a bruised and tender right 3rd digit, which has been worsening since the incident. As the patient is bending laterally at the PIP joint, it is likely that the joint is dislocated. It is also possible that the patient suffered a fracture from her fall. Will further assess with X-Ray. Per Lilliana Drummond PA-C I agree with the above proposed plan ..... Imaging was ordered from triage... The family did not relay the patient had deformity of the right 3rd digit, I am ordering an x-ray. I have independently reviewed the following tests: CT max face, head and cervical spine: CT/CT head/brain wo IV con IMPRESSION: 1. Soft tissue hematoma in the right forehead and preorbital region without acute maxillofacial fractures. 2. No acute intracranial hemorrhage or territorial infarction. 3. Severe cerebral volume loss with a bifrontal and bitemporal predominance, recommend clinical correlation for dementia. A component of chronic low density subdural collections and/or subdural hygromas in the bifrontal region is difficult to exclude. Further characterization with an MRI of the brain could be obtained as clinically warranted. 4. No acute cervical fractures or malalignment. 5. Severe multilevel degenerative changes of the cervical spine. 6. Mild heterogeneity of the thyroid gland, recommend evaluation with outpatient thyroid ultrasound. Electronically signed by: Lesa Aguila MD 12/21/2023 08:37 PM [facility] X-ray right hand: Dislocation at the PIP 3rd digit, no fracture Lab Data Labs: Lab Results 12/21/23 Range/Units 22:04 POC Glucose 97 (60-115) mg/dL Discharge Plan Discharge Clinical Impression: Contusion of face, Facial laceration, Dislocation of finger PIP joint Patient Disposition: Home, Self-Care Instructions: Laceration (ED), Facial Contusion (ED), Finger Dislocation (ED) Additional Instructions: A CT scans of the brain, cervical spine and face were negative for acute injury. Five stitches were used to repair the laceration, they will dissolve on their own. The right 3rd digit was dislocated, it was reduced. Keep the splint in place for 2-3 days for comfort. Make sure to follow up with primary care this coming week. Prescriptions: No Action metformin 500 mg Tablet 500 mg PO BIDWM Qty: 60 0RF atorvastatin 20 mg Tablet 20 mg PO BEDTIME Qty: 30 0RF trazodone 50 mg Tablet 50 mg PO BEDTIME MRX1 PRN (Reason: Insomnia) Qty: 30 0RF venlafaxine 25 mg Tablet 25 mg PO BID@0800,1500 Qty: 60 0RF clonazepam 0.5 mg Tablet 0.5 mg PO BID PRN (Reason: agitation) Qty: 60 0RF melatonin 3 mg Tablet 6 mg PO BEDTIME PRN (Reason: Sleep) Qty: 60 0RF mirtazapine 30 mg Tablet 30 mg PO BEDTIME Qty: 30 0RF aripiprazole [Abilify] 5 mg Tablet 7.5 mg PO BEDTIME Qty: 30 0RF nystatin 100,000 unit/gram powder 1 appl topical BID Qty: 15 0RF Interventions: ED Discharge Assessment Last Done: 12/22/23 01:27 Discharge Date/Time: 12/22/23 01:27 Print Language: Urdu
[2023-12-21 21:27] VITALS: BP 158/88; PULSE 80; RESP 19; TEMP 36.6; O2SAT 99
[2023-12-21 22:08] VITALS: BP 159/92; PULSE 75; RESP 18; TEMP 36.9; O2SAT 98
[2023-12-21 22:11] LABS: Glucose, Whole Blood 97 mg/dL (60-115)
[2023-12-21] MEDS: ARIPiprazole 5 MG TABLET 7.5 MG PO (23:07)
[2023-12-21] MEDS: Mirtazapine 30 MG TABLET PO (23:08)
[2023-12-21] MEDS: Atorvastatin Calcium 20 MG TABLET PO (23:08)
[2023-12-22 01:27] VITALS: BP 159/92; PULSE 75; RESP 18; TEMP 36.9; O2SAT 98
== END 2023-12-22 01:27 | disposition home or self-care (01) ==
PROVIDERS: Emergency Provider Emergency Medicine; PCP Family Medicine
DX: S01.111A Laceration without foreign body of right eyelid and periocular area, initial encounter (principal); S63.284A Dislocation of proximal interphalangeal joint of right ring finger, initial encounter; W01.0XXA Fall on same level from slipping, tripping and stumbling without subsequent striking against object, initial encounter; Y93.9 Activity, unspecified; Y92.9 Unspecified place or not applicable; Y99.9 Unspecified external cause status; E11.9 Type 2 diabetes mellitus without complications; I10 Essential (primary) hypertension; F03.90 Unspecified dementia, unspecified severity, without behavioral disturbance, psychotic disturbance, mood disturbance, and anxiety; F39 Unspecified mood [affective] disorder; F03.C0 Unspecified dementia, severe, without behavioral disturbance, psychotic disturbance, mood disturbance, and anxiety; Z79.899 Other long term (current) drug therapy
CPT/HCPCS: 12013; 26770; 70450; 70486; 72125; 73130; 82947; 99283; 99284